=== PATIENT | female | born 2000 | race Caucasian/White ===

== ENCOUNTER 2022-11-23 13:38 | Outpatient (OUT) | payer OTHER, MEDICAID, SELFPAY ==
--- NOTE | 2022-11-23 13:05 | US_ITS ---
[address] [address] Patient Name: CHRIS BERMUDEZ MRN: [id number] date: 2000 Sex: F Assigned Patient Location: US Current Patient Location: US Accession/Order Number: [id number] Exam Date: 11/23/2022 13:10 Report Date: 11/23/2022 16:14 At the request of: PATIENCE ENRIQUEZ Procedure: US OB incomplete anatomy EXAMINATION: US OB incomplete anatomy HISTORY: FOLLOW UP SUBVISUALIZED ANATOMY COMPARISON: Ultrasound anatomy 10/24/2022 FINDINGS: Presentation: Cephalic Heart rate: 1 42 bpm Anatomy: Four-chamber heart, RVOT, LVOT visualized without appreciable abnormality. GA: 24 weeks 3 days LEXIE 03/12/2023 IMPRESSION: 1. Single live intrauterine . 2. Adequate visualization and no appreciable abnormality of the four-chamber heart and cardiac outflow tracts. Electronically authenticated by: JESE MENDEZ Date: 11/23/2022 16:14
== END 2022-11-23 13:39 ==
LOC: US 13:38
PROVIDERS: Visit Provider Obstetrics & Gynecology
DX: Z36.2 Encounter for other antenatal screening follow-up (principal); Z33.1 Pregnant state, incidental
CPT/HCPCS: 76815

== ENCOUNTER 2022-12-16 11:00 | Outpatient (OUT) | payer MEDICAID, SELFPAY ==
[2022-12-16 11:37] LABS: Glucose 1 Hour 103 mg/dL
== END 2022-12-16 11:01 | disposition home or self-care (01) ==
PROVIDERS: Visit Provider Physician Assistant
DX: Z13.1 Encounter for screening for diabetes mellitus (principal)
CPT/HCPCS: 36415; 82950

== ENCOUNTER 2023-02-12 18:05 | Outpatient (OUT) | payer MEDICAID, SELFPAY ==
--- NOTE | 2023-02-12 18:11 | US_ITS ---
[address] [address] Patient Name: CHRIS BERMUDEZ MRN: [id number] date: 2000 Sex: F Assigned Patient Location: Current Patient Location: Accession/Order Number: [id number] Exam Date: 02/12/2023 18:20 Report Date: 02/13/2023 14:59 At the request of: PATIENCE ENRIQUEZ Procedure: US OB growth PROCEDURE: US OB growth, 02/12/2023 6:20 PM EDT. INDICATIONS: size and date discrepancy, growth evaluation 1 para 0 COMPARISON: 11/23/2022 FINDINGS: EVALUATION Number of Fetuses : 1 Presentation: Cephalic Heart Rate: 136 bpm. Placenta: Anterior, no previa or hemorrhage demonstrated CHILANGO: 21.7 cm, maximum vertical pocket 7.9 cm GESTATIONAL AGE: Provided gestational age: 36 weeks 0 days Provided LEXIE: 03/12/2023 Sonographic gestational age: 37 weeks 0 days +/- 2 weeks 4 days Sonographic LEXIE: 03/05/2023 BIOMETRY: BPD: 9.4 cm, 38 weeks 0 days, 96 percentile. HC: 33.6 cm, 38 weeks 4 days, 80 percentile. AC: 34.2 cm, 38 weeks 1 day, 97 percentile. FL: 6.5 cm, 33 weeks 3 days, less than 3 percentile. Estimated weight 3111 g +/- 467 g. 80 percentile Growth ratios: CI: 79.7 FL/BPD: 69.3, normal range 71-87 HC/AC: 0.98 FL/AC: 18.9, normal range 20-24 FL/HC: 19.3, normal range 20.8-22.6 ANATOMY: Not evaluated MATERNAL FINDINGS: No maternal adnexal abnormality. US/US OB growth IMPRESSION: 1. Living intrauterine , cephalic presentation. 2. Composite sonographic age 37 weeks 0 days +/- 2 weeks 4 days. 3. Estimated weight 3111 g, 80 percentile 4. Amniotic fluid index 21.7 cm, maximum vertical pocket 7.9 cm. Electronically authenticated by: BUSTER MURPHY Date: 02/13/2023 14:59
== END 2023-02-12 18:06 | disposition home or self-care (01) ==
PROVIDERS: Visit Provider Obstetrics & Gynecology
DX: O26.843 Uterine size-date discrepancy, third trimester (principal); Z3A.36 36 weeks gestation of pregnancy
CPT/HCPCS: 76816

== ENCOUNTER 2023-02-14 20:45 | Outpatient (REF) | payer MEDICAID, SELFPAY | END 2023-02-14 20:46 | disposition home or self-care (01) | LOC: LAB 20:45 | PROVIDERS: Visit Provider Obstetrics & Gynecology | DX: Z34.93 Encounter for supervision of normal pregnancy, unspecified, third trimester (principal) | CPT/HCPCS: 87081 ==

== ENCOUNTER 2023-03-02 13:48 | Observation (INO) | payer MEDICAID, SELFPAY ==
[2023-03-02 14:03] VITALS: BP 133/80; PULSE 96
[2023-03-02 14:31] LABS: Bilirubin Urine NEGATIVE (NEGATIVE); Blood Urine NEGATIVE (NEGATIVE); Clarity Urine CLEAR (CLEAR); Color Urine LT. YELLOW (YELLOW); Glucose Urine UA NEGATIVE (NEGATIVE); Ketones Urine NEGATIVE (NEGATIVE); Leukocyte Esterase Urine TRACE (NEGATIVE); Nitrite Urine NEGATIVE (NEGATIVE); Protein Urine NEGATIVE (NEG/TRACE); Urobilinogen Urine 0.2 EU/dL (0.2-1.0)
[2023-03-02 14:32] LABS: Urine Microscopic Indicated YES
[2023-03-02 14:50] LABS: Bacteria Urine NONE SEEN #/HPF (NONE SEEN); Cast Seen? NONE SEEN #/LPF (NONE SEEN); Crystals Seen? None Seen #/HPF (None Seen); Mucus Urine SMALL (NONE SEEN); RBC Urine NONE SEEN #/HPF (0-2); Squamous Epithelial Cell Urine MODERATE #/LPF (NONE/RARE); Urine Culture Indicated NO; WBC Urine 0-2 #/HPF (NONE SEEN)
== END 2023-03-02 16:35 | disposition home or self-care (01) ==
LOC: FBC 13:51
PROVIDERS: Admitting Provider Obstetrics & Gynecology; Visit Provider Obstetrics & Gynecology
DX: O47.9 False labor, unspecified (principal); Z3A.00 Weeks of gestation of pregnancy not specified
CPT/HCPCS: 59025; 81001; G0378; G0379

== ENCOUNTER 2023-03-12 20:34 | Inpatient (IN) | payer MEDICAID, SELFPAY ==
[2023-03-12 20:45] VITALS: BP 137/77; PULSE 93
[2023-03-12 21:41] VITALS: RESP 18
[2023-03-12] MEDS: 0.9 % SODIUM CHLORIDE 1,000 ML 125 ML IV (22:25)
[2023-03-12 22:44] LABS: Hematocrit 34.9 % (36.0-48.0); Hemoglobin 12.1 g/dL (12.0-16.0); Mean Corpuscular HGB Conc 34.7 g/dL (29.9-35.2); Mean Corpuscular Hemoglobin 31.1 pg (26.7-34.0); Mean Corpuscular Volume 89.7 fL (81.0-99.0); Mean Platelet Volume 11.8 fL (9.5-13.5); Platelet Count 206 10^3/uL (150-450); Red Blood Count 3.89 10^6/uL (4.20-5.40); Red Cell Distribution Width 12.8 % (11.0-15.0); White Blood Count 11.6 10^3/uL (4.0-11.0)
[2023-03-12 22:50] LABS: Bilirubin Urine NEGATIVE (NEGATIVE); Blood Urine NEGATIVE (NEGATIVE); Clarity Urine CLEAR (CLEAR); Color Urine YELLOW (YELLOW); Glucose Urine UA NEGATIVE (NEGATIVE); Ketones Urine NEGATIVE (NEGATIVE); Leukocyte Esterase Urine NEGATIVE (NEGATIVE); Nitrite Urine NEGATIVE (NEGATIVE); Protein Urine NEGATIVE (NEG/TRACE); Specific Gravity Urine 1.015 (1.005-1.025); Urobilinogen Urine 0.2 EU/dL (0.2-1.0); pH Urine 7.5 (5.0-9.0)
[2023-03-12 22:51] LABS: Amphetamine Screen Urine NEGATIVE (NEGATIVE); Barbiturates Screen Urine NEGATIVE (NEGATIVE); Benzodiazepines Screen Urine NEGATIVE (NEGATIVE); Buprenorphine Screen Urine NEGATIVE (NEGATIVE); Cannabinoid Screen Urine NEGATIVE (NEGATIVE); Cocaine Screen Urine NEGATIVE (NEGATIVE); Methadone Screen Urine NEGATIVE (NEGATIVE); Methamphetamines Screen Urine NEGATIVE (NEGATIVE); Opiate Screen Urine NEGATIVE (NEGATIVE); Oxycodone Screen Urine NEGATIVE (NEGATIVE); Phencyclidine Screen Urine NEGATIVE (NEGATIVE); Tricyclic Antidepressant Urine NEGATIVE (NEGATIVE); Urine Microscopic Indicated NO
[2023-03-12 23:35] VITALS: BP 136/67; PULSE 86
[2023-03-13] VITALS (12 sets, daily range): BP systolic 108–136; BP diastolic 54–89; PULSE 85–109; RESP 16; TEMP 36.9–37.3
[2023-03-13] MEDS: ONDANSETRON PF 4 MG/2 ML VIAL IV (02:17)
[2023-03-13] MEDS: LIDOCAINE HCL 1% 200 MG/20 ML MDV INJ (04:18)
[2023-03-13] MEDS: KETOROLAC TROMETHAMINE 30 MG/ML VIAL IVP (04:35)
--- NOTE | 2023-03-13 04:44 | PM.OBPRCVD ---
Procedure Intrapartal events: None Induction method: none Delivery augmentation: rupture of membranes Delivery monitor: external FHT and external uterine Route of delivery: Episiotomy Description: right mediolateral Laceration description: perineal - 2nd degree Delivery repair: Vicryl Estimated blood loss (mL): 400 Anesthesia type: None Disposition: floor Delivery date: 03/13/23 Gender: male presentation: vertex Placental delivery description: Spontaneous cord description: 3 Vessels
[2023-03-13] MEDS: BENZOCAINE/MENTHOL 85 GRAM SPRAY BOTTLE 1 APPLIC TOPICAL (06:02)
[2023-03-13] MEDS: GLYCERIN/WITCH HAZEL PADS 1 PAD TOPICAL (06:02)
--- NOTE | 2023-03-13 07:44 | W.PC.ACHO ---
Registration Status: ADM IN Primary Language: [place] Citizen Preferred Language: [place] Citizen Active Medications Generic Name Dose Route Start Last Admin Trade Name Jose Martin PRN Reason Stop Dose Admin Acetaminophen 650 mg 03/13/23 04:45 Acetaminophen 325 Mg Tablet PO Q6H PRN Mild Pain Al Hydroxide/Mg Hydroxide 2,400 mg 03/13/23 04:45 Magnesium Hydroxide 2,400 Mg/10 Ml Oral.Susp PO Q6H PRN Dyspepsia Benzocaine/Menthol 1 applic 03/13/23 04:45 03/13/23 06:02 Benzocaine/Menthol 85 Gram [place] Bottle TOPICAL 1 applic Q2H PRN Administration Pain Carboprost Tromethamine 250 mcg 03/12/23 21:34 Carboprost Tromethamine 250 Mcg/Ml 1 Ml Vial IM 03/14/23 05:00 Q15M PRN Bleeding Diphtheria/Pertussis/Tetanus Vacc 0.5 ml 03/15/23 09:00 Adacel Diph,Pertuss(Acell),Tet Vac/Pf 0.5 Ml Adult Syringe IM 03/15/23 09:01 .ONCE ONE Docusate Sodium 100 mg 03/14/23 09:00 Docusate Sodium 100 Mg Capsule PO BID JEROD Sodium Chloride 1,000 mls @ 125 mls/hr 03/12/23 21:45 03/12/23 22:25 Sodium Chloride 0.9% 1,000 Ml IV 125 mls/hr .Q8H JEROD Administration Oxytocin 20 unit/ Sodium 1,002 mls @ 125 mls/hr 03/13/23 04:45 03/13/23 04:23 Chloride IV 03/13/23 12:44 125 mls/hr Q8H JEROD Administration Ibuprofen 600 mg 03/13/23 12:00 Ibuprofen 600 Mg Tablet PO Q6H PRN Moderate Pain Measles/Mumps/Rubella Vaccine Live 0.5 ml 03/15/23 09:00 Measles,Mumps,Rubella Vacc/Pf 0.5 Ml Vial SQ 03/15/23 09:01 .ONCE ONE Methylergonovine Maleate 0.2 mg 03/12/23 21:34 Methylergonovine Maleate 0.2 Mg/Ml Ampule IM 03/14/23 05:00 ONCE PRN Uterine Contractility/Contract Methylergonovine Maleate 0.2 mg 03/12/23 21:34 Methylergonovine Maleate 0.2 Mg Tablet PO 03/14/23 21:34 Q4H PRN Uterine Contractility/Contract Misoprostol 600 mcg 03/12/23 21:34 Misoprostol 100 Mcg Tablet PO 03/14/23 21:34 ONCE PRN Uterine Bleeding Misoprostol 800 mcg 03/12/23 21:34 Misoprostol 100 Mcg Tablet SL 03/14/23 21:34 ONCE PRN Uterine Bleeding Misoprostol 1,000 mcg 03/12/23 21:34 Misoprostol 100 Mcg Tablet [place] 03/14/23 21:34 ONCE PRN Uterine Bleeding Ondansetron HCl 4 mg 03/12/23 21:34 03/13/23 02:17 Ondansetron Pf 4 Mg/2 Ml Vial IV 4 mg Q6H PRN Administration Nausea And Vomiting Ondansetron HCl 4 mg 03/12/23 21:34 Ondansetron 4 Mg Rapdis Tablet SL Q6H PRN Nausea And Vomiting Oxytocin 10 unit 03/12/23 21:34 Oxytocin 10 Unit/Ml Vial IM 03/14/23 21:34 ONCE PRN Bleeding Senna 17.2 mg 03/13/23 20:00 Sennosides 8.6 Mg Tablet PO QHS PRN Constipation Simethicone 80 mg 03/13/23 04:45 Simethicone 80 Mg Tab.Chew PO QID PRN Abdominal Distention Temazepam 15 mg 03/13/23 04:45 Temazepam 15 Mg Capsule PO QHS PRN Sleep Witch Patricia/Glycerin 1 pad 03/13/23 04:45 03/13/23 06:02 Glycerin/Witch Patricia Pads TOPICAL 1 pad Q2H PRN Administration Pain Diet Category Date Time Status Regular Consistency Diet Diet 03/13/23 Breakfast Active IV Insertion/Site Date of IV Line Insertion [20g 03/12/23 left Hand] IV Insertion Time [20g left 22:25 Hand] Neurology Patient orientation (short person,place,time,situation list) Respiratory Oxygen Delivery Method Room Air Oxygen Delivery Method Room Air Cardiology Heart Sounds Strong,Regular Renal Bladder Pattern Continent
[2023-03-13] MEDS: ACETAMINOPHEN 325 MG TABLET 650 MG PO ×2 (10:32→16:19)
--- NOTE | 2023-03-13 11:53 | PC.NURSE ---
[id number] Patient up to shower, complaints of dizziness. Assisted back to bed by FOB. Encouraged to drink more fluids and rest.
--- NOTE | 2023-03-13 19:28 | W.PC.ACHO ---
Registration Status: ADM IN Primary Language: [place]ian Preferred Language: [place]isian Active Medications Generic Name Dose Route Start Last Admin Trade Name Jose Martin PRN Reason Stop Dose Admin Acetaminophen 650 mg 03/13/23 04:45 03/13/23 16:19 Acetaminophen 325 Mg Tablet PO 650 mg Q6H PRN Administration Mild Pain Al Hydroxide/Mg Hydroxide 2,400 mg 03/13/23 04:45 Magnesium Hydroxide 2,400 Mg/10 Ml Oral.Susp PO Q6H PRN Dyspepsia Benzocaine/Menthol 1 applic 03/13/23 04:45 03/13/23 06:02 Benzocaine/Menthol 85 Gram [place] Bottle TOPICAL 1 applic Q2H PRN Administration Pain Carboprost Tromethamine 250 mcg 03/12/23 21:34 Carboprost Tromethamine 250 Mcg/Ml 1 Ml Vial IM 03/14/23 05:00 Q15M PRN Bleeding Diphtheria/Pertussis/Tetanus Vacc 0.5 ml 03/15/23 09:00 Adacel Diph,Pertuss(Acell),Tet Vac/Pf 0.5 Ml Adult Syringe IM 03/15/23 09:01 .ONCE ONE Docusate Sodium 100 mg 03/14/23 09:00 Docusate Sodium 100 Mg Capsule PO BID JEROD Sodium Chloride 1,000 mls @ 125 mls/hr 03/12/23 21:45 03/12/23 22:25 Sodium Chloride 0.9% 1,000 Ml IV 125 mls/hr .Q8H JEROD Administration Ibuprofen 600 mg 03/13/23 12:00 Ibuprofen 600 Mg Tablet PO Q6H PRN Moderate Pain Measles/Mumps/Rubella Vaccine Live 0.5 ml 03/15/23 09:00 Measles,Mumps,Rubella Vacc/Pf 0.5 Ml Vial SQ 03/15/23 09:01 .ONCE ONE Methylergonovine Maleate 0.2 mg 03/12/23 21:34 Methylergonovine Maleate 0.2 Mg/Ml Ampule IM 03/14/23 05:00 ONCE PRN Uterine Contractility/Contract Methylergonovine Maleate 0.2 mg 03/12/23 21:34 Methylergonovine Maleate 0.2 Mg Tablet PO 03/14/23 05:00 Q4H PRN Uterine Contractility/Contract Misoprostol 600 mcg 03/12/23 21:34 Misoprostol 100 Mcg Tablet PO 03/14/23 05:00 ONCE PRN Uterine Bleeding Misoprostol 800 mcg 03/12/23 21:34 Misoprostol 100 Mcg Tablet SL 03/14/23 05:00 ONCE PRN Uterine Bleeding Misoprostol 1,000 mcg 03/12/23 21:34 Misoprostol 100 Mcg Tablet [place] 03/14/23 05:00 ONCE PRN Uterine Bleeding Ondansetron HCl 4 mg 03/12/23 21:34 03/13/23 02:17 Ondansetron Pf 4 Mg/2 Ml Vial IV 4 mg Q6H PRN Administration Nausea And Vomiting Ondansetron HCl 4 mg 03/12/23 21:34 Ondansetron 4 Mg Rapdis Tablet SL Q6H PRN Nausea And Vomiting Senna 17.2 mg 03/13/23 20:00 Sennosides 8.6 Mg Tablet PO QHS PRN Constipation Simethicone 80 mg 03/13/23 04:45 Simethicone 80 Mg Tab.Chew PO QID PRN Abdominal Distention Temazepam 15 mg 03/13/23 04:45 Temazepam 15 Mg Capsule PO QHS PRN Sleep Witch Patricia/Glycerin 1 pad 03/13/23 04:45 03/13/23 06:02 Glycerin/Witch Patricia Pads TOPICAL 1 pad Q2H PRN Administration Pain Diet Category Date Time Status Regular Consistency Diet Diet 03/13/23 Breakfast Active IV Insertion/Site Date of IV Line Insertion [20g 03/12/23 left Hand] IV Insertion Time [20g left 22:25 Hand] Neurology Patient orientation (short person,place,time,situation list) Respiratory Oxygen Delivery Method Room Air Oxygen Delivery Method Room Air Cardiology Heart Sounds Strong,Regular Renal Bladder Pattern Continent Bladder Pattern Continent
[2023-03-13] MEDS: IBUPROFEN 600 MG TABLET PO (20:23)
[2023-03-13] MEDS: SENNOSIDES 8.6 MG TABLET 17.2 MG PO (20:33)
[2023-03-14 00:45] VITALS: TEMP 36.7
[2023-03-14 00:46] VITALS: BP 130/70; PULSE 101
[2023-03-14] MEDS: IBUPROFEN 600 MG TABLET PO ×3 (04:12→16:01)
--- NOTE | 2023-03-14 07:23 | W.PC.ACHO ---
Registration Status: ADM IN Primary Language: [place] Preferred Language: [place] Active Medications Generic Name Dose Route Start Last Admin Trade Name Freq PRN Reason Stop Dose Admin Acetaminophen 650 mg 03/13/23 04:45 03/13/23 16:19 Acetaminophen 325 Mg Tablet PO 650 mg Q6H PRN Administration Mild Pain Al Hydroxide/Mg Hydroxide 2,400 mg 03/13/23 04:45 Magnesium Hydroxide 2,400 Mg/10 Ml Oral.Susp PO Q6H PRN Dyspepsia Benzocaine/Menthol 1 applic 03/13/23 04:45 03/13/23 06:02 Benzocaine/Menthol 85 Gram [place] Bottle TOPICAL 1 applic Q2H PRN Administration Pain Diphtheria/Pertussis/Tetanus Vacc 0.5 ml 03/15/23 09:00 Adacel Diph,Pertuss(Acell),Tet Vac/Pf 0.5 Ml Adult Syringe IM 03/15/23 09:01 .ONCE ONE Docusate Sodium 100 mg 03/14/23 09:00 Docusate Sodium 100 Mg Capsule PO BID JEROD Sodium Chloride 1,000 mls @ 125 mls/hr 03/12/23 21:45 03/12/23 22:25 Sodium Chloride 0.9% 1,000 Ml IV 125 mls/hr .Q8H JEROD Administration Ibuprofen 600 mg 03/13/23 12:00 03/14/23 04:12 Ibuprofen 600 Mg Tablet PO 600 mg Q6H PRN Administration Moderate Pain Measles/Mumps/Rubella Vaccine Live 0.5 ml 03/15/23 09:00 Measles,Mumps,Rubella Vacc/Pf 0.5 Ml Vial SQ 03/15/23 09:01 .ONCE ONE Ondansetron HCl 4 mg 03/12/23 21:34 03/13/23 02:17 Ondansetron Pf 4 Mg/2 Ml Vial IV 4 mg Q6H PRN Administration Nausea And Vomiting Ondansetron HCl 4 mg 03/12/23 21:34 Ondansetron 4 Mg Rapdis Tablet SL Q6H PRN Nausea And Vomiting Senna 17.2 mg 03/13/23 20:00 03/13/23 20:33 Sennosides 8.6 Mg Tablet PO 17.2 mg QHS PRN Administration Constipation Simethicone 80 mg 03/13/23 04:45 Simethicone 80 Mg Tab.Chew PO QID PRN Abdominal Distention Temazepam 15 mg 03/13/23 04:45 Temazepam 15 Mg Capsule PO QHS PRN Sleep Witch Patricia/Glycerin 1 pad 03/13/23 04:45 03/13/23 06:02 Glycerin/Witch Patricia Pads TOPICAL 1 pad Q2H PRN Administration Pain Diet Category Date Time Status Regular Consistency Diet Diet 03/13/23 Breakfast Active Respiratory Oxygen Delivery Method Room Air Cardiology Heart Sounds Strong,Regular Renal Bladder Pattern Continent Bladder Pattern Continent
[2023-03-14 09:40] VITALS: RESP 16
[2023-03-14 09:44] VITALS: BP 133/71; PULSE 117; RESP 18; TEMP 36.6
[2023-03-14] MEDS: DOCUSATE SODIUM 100 MG CAPSULE PO (09:46)
--- NOTE | 2023-03-14 14:19 | PM.OBPN ---
OB - PN: Subj Subjective Patient comments: no complaints and pain well controlled Exam Constitutional Vital Signs, click to edit/add: Last Vital Signs Temp 97.9 F 03/14/23 09:44 Pulse 117 H 03/14/23 09:44 Resp 18 03/14/23 09:44 BP 133/71 03/14/23 09:44 O2 Del Method Room Air 03/14/23 00:45 Documenting provider has reviewed patient's vital signs: yes Common normals: no apparent distress Respiratory Common normals: normal respiratory effort and clear to auscultation bilaterally Cardio Common normals: regular rate and regular rhythm GI Common normals: Normal to inspection, nondistended, normoactive bowel sounds present Extremity Common normals: no clubbing, cyanosis or edema and no calf tenderness OB - PN: A/P Plan - Vaginal Delivery day: 1 Plan: routine care, discharge home and follow up 6 weeks Time Spent with Patient Time: Total time spent is greater than 50% in coordination of care (as documented) at patient's floor/unit and/or counseling patient: Total time spent with greater than 50% in coordination of care (as documented) at patient's floor/unit and/or counseling patient: less than 15 minutes
[2023-03-14 16:00] VITALS: BP 131/83; PULSE 102
== END 2023-03-14 16:10 | disposition home or self-care (01) | DRG 560 ==
PROVIDERS: Admitting Provider Obstetrics & Gynecology; Visit Provider Obstetrics & Gynecology
DX: O99.284 Endocrine, nutritional and metabolic diseases complicating childbirth (principal); E23.6 Other disorders of pituitary gland; O99.354 Diseases of the nervous system complicating childbirth; G43.911 Migraine, unspecified, intractable, with status migrainosus; O99.892 Other specified diseases and conditions complicating childbirth; R00.0 Tachycardia, unspecified; O70.1 Second degree perineal laceration during delivery; Z82.61 Family history of arthritis; Z80.3 Family history of malignant neoplasm of breast; Z37.0 Single live birth; Z3A.00 Weeks of gestation of pregnancy not specified
CPT/HCPCS: 36415; 59025; 59050; 59410; 80307; 81003; 85027; 86850; 86900; 86901; 96374; 96375

== ENCOUNTER 2023-03-19 08:30 | Outpatient (OUT) | payer MEDICAID, SELFPAY ==
[2023-03-19 10:04] VITALS: BP 118/79; PULSE 98; RESP 16; TEMP 36.9; O2SAT 97
--- NOTE | 2023-03-19 10:11 | PC.NURSE ---
Arrive for follow up stating everything is going well States is able to sleep at night as baby gives 3 hour stretches at night otherwise feeds every 2.5 hours. Does both breasts, milk in and nipples are intact. Pinches initially with latch and gets better. Baby to breast, poor positioning noted as infant stretches over shoulder for latch. Shown to place baby belly to belly and to support breast. Infant latches himself deeply and audible swallows immediately. Nurses 06/01. Mom and baby working well together for feeds. No questions from parents at this time.
== END 2023-03-19 10:24 | disposition home or self-care (01) ==
LOC: FBCO 08:30
PROVIDERS: Visit Provider Obstetrics & Gynecology
DX: Z39.2 Encounter for routine postpartum follow-up (principal)

== ENCOUNTER 2023-07-03 20:38 | Emergency (ER) | payer MEDICAID, SELFPAY ==
[2023-07-03 20:46] VITALS: BP 145/86; PULSE 89; RESP 16; TEMP 37; O2SAT 97; BMI 31.8
--- NOTE | 2023-07-03 21:03 | ED.FEMALEGU1 ---
HPI - Female Genitourinary General Chief complaint: Vaginal Bleeding Stated complaint: Vaginal Pain Time Seen by Provider: 07/03/23 20:39 Source: patient Mode of arrival: walk-in Limitations: no limitations History of Present Illness HPI Narrative: Patient is a 22-year-old female who presents to the emergency department with her significant other for the evaluation of tissue protruding from her vagina that she noticed this afternoon. She states she was wiping when she felt something protruding, she noticed a small amount of spotting which has been typical for her intermittently since giving 16 weeks ago. She had a vaginal tear that was repaired with sutures. She did not have any removal of sutures. She has been healing well otherwise. She has no significant pain, no urinary symptoms or discharge. Related Data Previous Rx's Medication Instructions Recorded ibuprofen 800 mg tablet 800 mg PO Q8H PRN pain 14 days #40 03/14/23 tabs Allergies Allergy/AdvReac Type Severity Reaction Status Date / Time No Known Drug Allergies Allergy Verified 03/12/23 21:34 Review of Systems ROS Constitutional Denies: fever or chills Ears, nose, mouth, and throat Denies: throat pain Cardiovascular Denies: chest pain Respiratory Denies: shortness of breath Gastrointestinal Denies: nausea or vomiting Genitourinary Denies: painful urination or pelvic pain Musculoskeletal Denies: back pain Integumentary/Breast Denies: rash Hematologic/Lymphatic Denies: easy bruising Exam Narrative Exam Narrative: Gen.: Awake, alert, in no distress Head: Normocephalic, atraumatic ENT: Moist mucous membranes Respiratory: No respiratory distress : Vaginal exam performed with Elif Keys RN at bedside throughout the duration of the exam. Visual inspection and speculum exam show a small piece of granular appearing tissue at the posterior vagina. There is no active bleeding. Tissue is firmly attached to the posterior vagina and there is no active protrusion from the cervix or vaginal vault. Nontender. No visible masses, lesions or drainage. Extremities: Moves extremities equally Psych: Normal mood and affect Neuro: No focal neuro deficit Skin: Warm, dry, intact Constitutional Vital Signs, click to edit/add: Last Vital Signs Temp 98.6 F 07/03/23 20:46 Pulse 89 07/03/23 20:46 Resp 16 07/03/23 20:46 BP 145/86 H 07/03/23 20:46 Pulse Ox 97 07/03/23 20:46 O2 Del Method Room Air 07/03/23 21:02 Course Vital Signs Vital signs: Vital Signs Temperature 98.6 F 07/03/23 20:46 Pulse Rate 89 07/03/23 20:46 Respiratory Rate 16 07/03/23 20:46 Blood Pressure 145/86 H 07/03/23 20:46 Pulse Oximetry 97 07/03/23 20:46 Oxygen Delivery Method Room Air 07/03/23 20:46 Temperature 98.6 F 07/03/23 20:46 Pulse Rate 89 07/03/23 20:46 Respiratory Rate 16 07/03/23 20:46 Blood Pressure 145/86 H 07/03/23 20:46 Pulse Oximetry 97 07/03/23 20:46 Oxygen Delivery Method Room Air 07/03/23 21:02 MDM - Female Genitourinary MDM Narrative Medical decision making narrative: Vaginal exam with a small amount of tissue at the posterior vagina, appears to be granular tissue from healing sutures after vaginal tear repair. She is given education and reassurance. Follow-up with [employer] to have this removed if needed. Return to the ER if symptoms change or worsen. Medical Records Attestation: I reviewed the patient's medical records. Discharge Plan Discharge Chief Complaint: Vaginal Bleeding Clinical Impression: Vaginal granulation tissue Patient Disposition: Home, Self-Care Time of Disposition Decision: 21:02 Condition: Good Prescriptions / Home Meds: No Action ibuprofen 800 mg tablet 800 mg PO Q8H PRN (Reason: pain) 14 Days Qty: 40 0RF Instructions: Posterior Vaginal Repair (DC) Stand Alone Forms: Portal Instructions Referrals: Davon Connors DO [Physician] - 1 week Discharge Date/Time: 07/03/23 21:09
--- NOTE | 2023-07-03 21:04 | PC.NURSE ---
Pt. reports feeling like there is something hanging from her vagina. Pt. reports being 16 weeks & noted some spotting associated with it. Pt. denies any pain or fevers at this time.
== END 2023-07-03 21:09 | disposition home or self-care (01) ==
PROVIDERS: Emergency Provider Internal Medicine; PCP Internal Medicine
DX: A58 Granuloma inguinale (principal)
CPT/HCPCS: 99283

== ENCOUNTER 2023-07-11 | Outpatient (REF) | payer MEDICAID, SELFPAY ==
--- OUTSIDE RECORDS SUMMARY | 2023-07-16 11:56 | XMS_ITS | CCD ---
Author Name Unknown Address [address] [place] [address] Organization [facility] Care Team Providers Care Chairman & Co Founder Name Role Phone MINA ., DR MORIN Admitting Unavailable MINA ., DR MORIN Attending Unavailable REQUEST, NONE LISTED Primary Care Unavaila ble MINA ., DR MORIN Consulting Unavailable ZIEBER, DR JESE Franco Consulting Unavailable DHARMESH ., AMILCAR Admitting Unavailable DHARMESH ., AMILCAR Attending Unavailable FAWWAEl, GARCIA H Primary Care Unavailable VIRGIL ., RAJINDER Consulting Unavailable VIRGIL ., RAJINDER Admitting Unavailable VIRGIL ., RAJINDER Attending Unavailable FAWWAD, GARCIA H Primary Care Unavailable VIRGIL ., RAJINDER Consulting Unavailable VIRGIL ., RAJINDER Admitting Unavailable VIRGIL ., RAJINDER Attending Unavailable FAWWAEl, GARCIA H Primary Care Unavailable ZIEBSHAYY, DR JESE Franco Consulting Unavailable VIRGIL ., RAJINDER Consulting Unavailable REQUEST, NONE LISTED Consulting Unavaila Maggie Patel Unavailable MICKEY Bailey Attending Provider Annetta Suárez Unavailable PATIENCE CONNORS Attending Unavailable RAJINDER HERMAN Attending Unavailable NO FAMILY, PHYSICIAN Primary Care Provider Unava ilable Patience Connors Attending Provider Patience Connors Admitting Unavailable Patience Connors Attending Unavailable NO FAMILY, PHYSICIAN Primary Care Unavailable Annel Bailey Admitting Unavailable Annel Bailey Attending Unavailable NO FAMILY, PHYSICIAN Primary Care Unavailable Medications Current Medications Medication Drug Class(es) Dates Sig (Normalized) Sig (Original) cephalexin 500 mg oral capsule (4 sources) Cephalosporin Antibacterial Start: 07-07-2023 take 1 capsule by mouth every eight hours Cephalexin 500 MG 1 capsule Orally three times a day for 10 day(s) 20 Philip, 2024 Active Start: 11-16-2022 take 1 capsule by mo uth every eight hours Cephalexin 500 MG 1 capsule Orally every 8 hrs for 7 12 Mar, 2023 Active Completed/Discontinued Medications Medication Drug Class(es) Dates Sig (Normalized) Sig (Original) amoxicillin 875 mg oral tablet (2 sources) Penicillin-class Antibacterial Start: 05-23-2019 take 1 tablet by mouth every twelve hours Amoxicillin 875 MG 1 tablet Orally every 12 hrs for 7 days May, Not-Taking dextromethorphan hydrobromide 1.5 mg/ml / pyrilamine maleate 1.5 mg/ml oral solution (2 sources) Uncompetitive Y-ypiaed-I-aspartat e Receptor Antagonist, Sigma-1 Agonist Start: 05-23-2019 Draper DM 7.5-7.5 MG/5ML 10 ml Orally every 6-8 hours PRN for 8 days May, Not-Taking Etonogestrel (2 sources) Progestin Nexplanon Not-Taking ondansetron 4 mg oral tablet (2 sources) Serotonin-3 Receptor Antagonist take 1 tablet by mouth once daily Zofran ODT 4 MG 1 tablet on the tongue and allow to dissolve Orally Once a day Not-Taking Vitamin 27-0.8 MG (2 sources) take 1 tablet by mouth once daily Vitamin 27-0.8 MG 1 tablet Orally Once a day Not-Taking take 1 tablet by mouth once citlaly y Vitamin 27-0.8 MG 1 tablet Orally Once a day Active TB Test (6 sources) Start: 12-24-2019 TB Test Dec .01 mL Start: 12-17-2019 TB Test Dec .05 mL Problems Active Problems Problem Classification Problem Date Documented Date Episodic/Chronic Cardiac dysrhythmias (2 sources) Tachycardia; Translations: [Tachycardia, unspecified] Episodic Contraceptive and procreative management (10 sources) Surveillance of contraception; Translations: [Encounter for surveillance of other contraceptives] Resolved: 07-02-2020 Episodic Immunizations and screening for infectious disease (6 sources) Encounter for screening for infections with a predominantly sexual mode of transmission; Translations: [Encounter for screening for other viral diseases] Resolved: 07-01-2020 Episodic Menstrual disorders (3 sources) Irregular menstruation, unspecified; Translations: [IRREGULAR MENSTRUATION UNSPECIFIED] Onset: 08-07-2022 Chronic Nausea and vomiting (3 sources) Nausea with vomiting, unspecified; Translations: [NAUSEA WITH VOMITING UNSPECIFIED] Onset: 09-10-2022 Episodic Nonmalignant breast conditions (2 sources) Mastitis without abscess Episodic Other complications of (1 source) Mild hyperemesis gravidarum; Translations: [MILD HYPEREMESIS GRAVIDARUM] Onset: 09-12-2022 Episodic Other nutritional; endocrine; and metabolic disorders (1 source) Obesity, unspecified; Translations: [Obesity, unspecified] Chronic Other nutritional; endocrine; and metabolic disorders (2 sources) Metabolic syndrome X; Translations: [Metabolic syndrome] Chronic Other nutritional; endocrine; and metabolic disorders (1 source) Obesity; Translations: [Obesity, unspecified] Chronic Other nutritional; endocrine; and metabolic disorders (1 source) Overweight; Translations: [Overweight] Episodic Other nutritional; endocrine; and metabolic disorders (1 source) Overweight; Translations: [Overweight] Episodic Other and delivery including normal (1 source) Encounter for supervision of normal , unspecified, first trimester; Translations: [ENC SUP NORMAL PREG UNS FIRST TRI] Onset: 08-10-2022 Episodic Other screening for suspected conditions (not mental disorders or infectious disease) (8 sources) Encounter for other specified screening; Translations: [Encounter for screening for malignant neoplasm of cervix] Onset: 10-03-2022 Episodic Other skin disorders (1 source) Follicular disorder, unspecified; Translations: [Follicular disorder, unspecified] Episodic Other skin disorders (1 source) Folliculitis; Translations: [Follicular disorder, unspecified] Episodic Residual codes; unclassified (1 source) 14 weeks gestation of ; Translations: [14 WEEKS GESTATION OF ] Onset: 09-12-2022 Episodic Urinary tract infections (1 source) Urinary tract infection, site not specified Episodic Viral infection (2 sources) Disease caused by 2019-nCoV; Translations: [COVID-19] Past or Other Problems Problem Classification Problem Date Documented Da te Episodic/Chronic Abdominal pain (2 sources) Pelvic and perineal pain; Translations: [Pelvic and perineal pain] Resolved: 07-01-2020 Episodic Genitourinary symptoms and ill-defined conditions (2 sources) Dysuria; Translations: [Dysuria] Onset: 11-16-2022 Episodic Headache; including migraine (2 sources) Migraine without aura, not refractory ; Translations: [Migraine without aura, without mention of intractable migraine without mention of status migrainosus] Onset: 05-16-2018 Resolved: 07-01-2020 Chronic Other nutritional; endocrine; and metabolic disorders (1 source) Body mass index (BMI) 26.0-26.9, adult; Translations: [Body mass index (BMI) 26.0-26.9, adult] Resolved: 07-01-2020 Episodic Other nutritional; endocrine; and metabolic disorders (2 sources) Underweight; Translations: [Underweight] Resolved: 07-01-2020 Episodic Other nutritional; endocrine; and metabolic disorders (1 source) Body mass index 25-29 - overweight; Translations: [Body mass index (BMI) 26.0-26.9, adult] Resolved: 07-01-2020 Episodic Other skin disorders (2 sources) Hair and hair follicle diseases; Translations: [Other specified disease of hair and hair follicles] Onset: 01-23-2019 Resolved: 07-01-2020 Episodic Other skin disorders (2 sources) Acne; Translations: [Acne, unspecified] Onset: 05-16-2018 Resolved: 07-01-2020 Episodic Other upper respiratory disease (1 source) Seasonal allergic rhinitis; Translations: [Other seasonal allergic rhinitis] Onset: 05-16-2018 Resolved: 07-01-2020 Chronic Other upper respiratory disease (1 source) Other seasonal allergic rhinitis; Translations: [Other seasonal allergic rhinitis] Onset: 05-16-2018 Resolved: 07-01-2020 Chronic Unclassified (1 source) Routine general medical examination at health care facility; Translations: [Routine general medical examination at health care facility] Onset: 05-16-2018 Resolved: 07-01-2020 Results Test Name Value Interpretation Reference Range Facility [facility] 07-11-2023 L Specimen: [id number] Received: 07/12/23 Status: NYASIA Chavez Num: [id number] Spec Type: Surgical Subm Dr: Patience Connors Tissues: A Soft Tissue/Surgical Margin-Other than Tumor,Mass,Lip or Ryanne (TISSUE EPISIOT Procedures: HE, Gross/Micro L4 Age/ Patient Sex Location Account Attending Physician Danelle Baldwin 22/ LABELL [id number] Patience Connors SPEC NUM: [id number] RECD: 07/12/23 STATUS: NYASIA REQ NUM: [id number] KIMBERLYN: 07/11/23 DR: Patience Connors ENTERED: 07/12/23 [facility] DR: Bud,Margarito SPEC TYPE: Surgical DEPT: MELIDA LONGORIA ORDERED: HE, Gross/Micro L4 ORDERED: HE, Gross/Micro L4 Pathological Diagnosis Granulation tissue, episiotomy site, excision: Granulation tissue. Clinical Information Granulation tissue from episiotomy site Gross Description Received in formalin labeled with the patient's name, date of and granulation tissue episiotomy site is a 2.5 x 1.5 x 0.3 cm soft john-kendall wrinkled tissue fragment, which is sectioned and entirely submitted. Entirely submitted in one cassette labeled A1. CPT Codes 98869 -------- -------- Specimen: [id number] Received: 07/12/23 Status: NYASIA Req Num: [id number] Spec Type: Surgical Subm Dr: Patience Connors Tissues: A Soft Tissue/Surgical Margin-Other than Tumor,Mass,Lip or Ryanne (TISSUE EPISIOT Procedures: HE, Gross/Micro L4 -------- Patient: Danelle Baldwin [id number] (Continued) -------- Signed (signature on file) Cedric Stern MD 07/14/[address] [facility] Urinalysis - AUTOMATEDon Appearance (U) clear GVISP 1 Other Bilirubin Ql (U) Negative NI Other Color (U) yellow [place] Other Glucose Ql (U) Negative GVISP 1 Other Hemoglobin Ql (U) trace intact [place] Other Ketones Ql (U) Negative GVISP 1 Other Leukocyte esterase Test strip Ql (U) small [place] Other Nitrite Ql (U) Negative GVISP 1 Other pH (U) 6.5 [pH] [place] Other Protein Ql (U) Negative GVISP 1 Other Specific gravity (U) [Rel density] 1.010 [place] Other Urobilinogen (U) [Mass/Vol] 0.2 mg/dL [place] Other Urinalysis - AUTOMATED [place] Other Urine Cultureon 11-16-2022 Bacteria identified Cx Nom (U) <9,000 colonies/ml mixed bacterial skin contaminants 2 Days PERFORMED BY: [place] [id number] PATHOLOGIST [employer]KE [employer] FINISHER ASBESTOS EZEKIEL TERRELL M.D. Normal [facility] Comment on above: Performed By: #### C UU #### [address] US PREG ANATOMY SINGLEon US PREG ANATOMY SINGLE EXAMINATION: US PREG ANATOMY SINGLE, US PREG CERVICAL LENGTH HISTORY: anatomy study COMPARISON: No relevant comparison available. TECHNIQUE: Transabdominal sonographic examination was performed for obstetrical and evaluation. FINDINGS: Number: 1 Heart Rate: 130.0 bpm Amniotic Fluid Volume: Subjectively normal Placental Location: Anterior with lower margin 4.3 cm from os. Cervix Length: 3.7 cm, closed. ANATOMY: Normal Structures -cerebellum, choroid plexus, cisterna magna, lateral cerebral ventricles, orbits, midline falx, hard palate, four-chamber heart, RVOT, LVOT, stomach, kidneys, bladder, umbilical cord insertion into abdomen, three-vessel cord, cervical spine, thoracic spine, lumbar spine, sacral spine, right upper extremity, left upper extremity, right lower extremity, left lower extremity. SUBOPTIMALLY SEEN: Cardiac outflow tracts ABNORMALITIES: None BIOMETRY: BPD: 4.8 cm 20 weeks 3 days HC: 17.8 cm 20 weeks 2 days AC: 15.9 cm 21 weeks 0 days FL: 3.2 cm 19 weeks 6 days EFW:357.6 grams; 66% FL/AC: 20.1 FL/BPD: 66.9 HC/AC: 1.1 GESTATIONAL AGE: Age by EDC: 20 weeks 1 days LEXIE by EDC: 03/12/2023 Age by current US: 20 weeks 3 days LEXIE by current US: 03/10/2023 IMPRESSION: 1. Single live intrauterine with growth detailed above. 2. Suboptimal visualization of cardiac outflow tracts due to position. Electronically authenticated by: JESE MENDEZ Date: 2022-10-24 15:56 Normal [facility] Pap IG, rfx Aptima HPV, rfx 16/18,45on 10-10-2022 . . Normal [facility] Comment on above: Result Comment: Perf ormed at: WB Performed By: #### P APHR2A #### [facility] [address] [place] [address] Dr. Jason Cristina DIAGNOSIS: Comment Normal [facility] Comment on above: Result Comment: NEGA TIVE FOR INTRAEPITHELIAL LESION OR MALIGNANCY. FUNGAL ORGANISMS MORPHOLOGICALLY CONSISTENT WITH JENNIFER SPECIES ARE PRESENT. CELLULAR CHANGES ASSOCIATED WITH INFLAMMATION ARE PRESENT. Performed at: WB Performed By: #### P APHR2A #### [facility] [address] [address] [address] Jason Cristina HPV Aptima Negative Normal Negative [facility] Comment on above: Result Comment: This nucleic acid amplification test detects fourteen high-risk HPV types (16,18,31,33,35,39,45,51,52,56,58,59,66,68) without differentiation. Performed at: =G Performed By: #### P APHR2A #### [facility] [address] [address] [address] Jason Cristina HPV Genotype Reflex Comment Normal [facility] Comment on above: Result Comment: Crit eria not met, HPV Genotype not performed. Performed at: WB Performed By: #### P APHR2A #### [facility] [address] [place] [address] Dr. Jason Cristina Methodology: Comment Normal [facility] Comment on above: Result Comment: This liquid based ThinPrep(R) pap test was screened with the use of an image guided system. Performed at: WB Performed By: #### P APHR2A #### [facility] [address] [place] [address] Dr. Jason Cristina Note: Comment Normal [facility] Comment on above: Result Comment: The Pap smear is a screening test designed to aid in the detection of premalignant and malignant conditions of the uterine cervix. It is not a diagnostic procedure and should not be used as the sole means of detecting cervical cancer. Both false-positive and false-negative reports do occur. . Performed at: WB Performed By: #### P APHR2A #### [facility] [address] [place] [address] Dr. Jason Cristina Performed by: Comment Normal [facility] Comment on above: Result Comment: Jazmin Forbes, Vice Chair (ASCP) Performed at: WB Performed By: #### P APHR2A #### [facility] [address] [place] [address] Dr. Jason Cristina Specimen adequacy: Comment Normal [facility] Comment on above: Result Comment: Sati sfactory for evaluation. Endocervical and/or squamous metaplastic cells (endocervical component) are present. Performed at: WB Performed By: #### P APHR2A #### [facility] [address] [place] [address] Dr. Jason Cristina CBC W MANUAL DIFFon 09-11-19 23 ATYPICAL LYMPH # 0.10 103/ul Normal [facility] Comment on above: Performed By: #### C ELA #### [facility] [address] [place] [address] Dr. Jason Cristina ATYPICAL LYMPH % 1 % Normal [facility] Comment on above: Performed By: #### C ELA #### [facility] [address] [place] [address] Dr. Jason Cristina BAND # 0.0 103/ul Normal 0.0-0.3 [facility] Comment on above: Performed By: #### C ELA #### [facility] [address] [place] [address] Dr. Jason Cristina BAND % 0 % Normal 0-5 [facility] Comment on above: Performed By: #### C ELA #### [facility] [address] [place] [address] Dr. Jason Cristina BASOM # 0.00 103/ul Normal 0.00-0.10 [facility] Comment on above: Performed By: #### C ELA #### [facility] [address] [place] [address] Dr. Jason Cristina BASOM % 0.0 % Critically low 0.2-2.0 [facility] Comment on above: Performed By: #### C ELA #### [facility] [address] [place] [address] Dr. Jason Cristina BLAST # Normal [facility] Comment on above: Performed By: #### C BCMAN #### [facility] [address] [place] [address] Dr. Jason Cristina BLAST % Normal [facility] Comment on above: Performed By: #### C BCMAN #### [facility] [address] [place] [address] Dr. Jason Cristina CORRECTED WBC Normal 4.0-11.0 [facility] Comment on above: Performed By: #### C BCAJ #### [facility] [address] [place] [address] Dr. Jason Cristina EOS # 0.00 103/ul Normal 0.00-0.70 [facility] Comment on above: Performed By: #### C BCAJ #### [facility] [address] [place] [address] Dr. Jason Cristina EOS% 0.0 % Critically low 0.9-7.0 [facility] Comment on above: Performed By: #### C BCAJ #### [facility] [address] [place] [address] Dr. Jason Cristina HCT 37.4 % Normal 36.0-48.0 [facility] Comment on above: Performed By: #### C BCAJ #### [facility] [address] [place] [address] Dr. Jason Cristina HGB 13.3 g/dl Normal 12.0-16.0 [facility] Comment on above: Performed By: #### C BCAJ #### [facility] [address] [place] [address] Dr. Jason Cristina LYMPHM # 0.39 103/ul Critically low 1.20-3.80 [facility] Comment on above: Performed By: #### C BCMAN #### [facility] [address] [place] [address] Dr. Jason Cristina LYMPHM% 4.0 % Critically low 20.5-60.0 [facility] Comment on above: Performed By: #### C ELA #### [facility] [address] [place] [address] Dr. Jason Cristina MCH 31.4 pg Normal 26.7-34.0 [facility] Comment on above: Performed By: #### C ELA #### [facility] [address] [place] [address] Dr. Jason Cristina MCHC 35.6 g/dl Critically high 29.9-35.2 [facility] Comment on above: Performed By: #### C ELA #### [facility] [address] [place] [address] Dr. Jason Cristina MCV 88.4 fL Normal 81.0-99.0 [facility] Comment on above: Performed By: #### C ELA #### [facility] [address] [place] [address] Dr. Jason Cristina METAMYELOCYTE # Normal [facility] Comment on above: Performed By: #### C ELA #### [facility] [address] [place] [address] Dr. Jason Cristina METAMYELOCYTE % Normal [facility] Comment on above: Performed By: #### C ELA #### [facility] [address] [place] [address] Dr. Jason Cristina MONOM# 0.19 103/ul Critically low 0.30-0.80 [facility] Comment on above: Performed By: #### C ELA #### [facility] [address] [place] [address] Dr. Jason Cristina MONOM% 2.0 % Normal 1.7-12.0 [facility] Comment on above: Performed By: #### C ELA #### [facility] [address] [place] [address] Dr. Jason Cristina MPV 10.0 fL Normal 9.5-13.5 [facility] Comment on above: Performed By: #### C ELA #### [facility] [address] [place] [address] Dr. Jason Cristina MYELOCYTE # Normal [facility] Comment on above: Performed By: #### C ELA #### [facility] [address] [address] [address] Jason Cristina MYELOCYTE % Normal [facility] Comment on above: Performed By: #### C ELA #### [facility] [address] [address] [address] Jason Cristina NRBC Normal [facility] Comment on above: Performed By: #### C ELA #### [facility] [address] [place] [address] Dr. Jason Cristina PLT 202 103/ul Normal 150-450 [facility] Comment on above: Performed By: #### C ELA #### [facility] [address] [place] [address] Dr. Jason Cristina RBC 4.23 106/ul Normal 4.20-5.40 [facility] Comment on above: Performed By: #### C ELA #### [facility] [address] [place] [address] Dr. Jason Cristina RDW 12.5 % Normal 11.0-15.0 [facility] Comment on above: Performed By: #### C ELA #### [facility] [address] [place] [address] Dr. Jason Cristina SEG # 9.02 103/ul Critically high 1.40-6.50 [facility] Comment on above: Performed By: #### C ELA #### [facility] [address] [place] [address] Dr. Jason Cristina SEG % 93.0 % Critically high 43.0-75.0 [facility] Comment on above: Performed By: #### C ELA #### [facility] [address] [place] [address] Dr. Jason Cristina WBC 9.7 103/ul Normal 4.0-11.0 [facility] Comment on above: Performed By: #### C ELA #### [facility] [address] [place] [address] Dr. Jason Cristina ER URINE PROFILEon 3 Bilirubin Ql (U) Negative Normal NEGATIVE [facility] Comment on above: Performed By: #### P REGU, ERUR #### [facility] [address] [place] [address] Dr. Jason Cristina Clarity (U) CLEAR Normal CLEAR [facility] Comment on above: Performed By: #### P REGU, ERUR #### [facility] [address] [address] [address] Jason Cristina Color (U) YELLOW Normal YELLOW [facility] Comment on above: Performed By: #### P REGU, ERUR #### [facility] [address] [place] [address] Dr. Jason MILNER A micrscopic examination will be performed if indicated. Normal [facility] Comment on above: Performed By: #### P REGU, ERUR #### [facility] [address] [place] [address] Dr. Jason Cristina Glucose Ql (U) Negative Normal NEGATIVE [facility] Comment on above: Performed By: #### P REGU, ERUR #### [facility] [address] [place] [address] Dr. Jason Cristina Hemoglobin Ql (U) Negative Normal NEGATIVE [facility] Comment on above: Performed By: #### P REGU, ERUR #### [facility] [address] [place] [address] Dr. Jason Cristina Ketones Ql (U) 15 mg/dl Abnormal NEGATIVE [facility] Comment on above: Performed By: #### P REGU, ERUR #### [facility] [address] [place] [address] Dr. Jason Cristina LEUKOCYTES Negative Normal NEGATIVE [facility] Comment on above: Performed By: #### P REGU, ERUR #### [facility] [address] [place] [address] Dr. Jason Cristina Nitrite Ql (U) Negative Normal NEGATIVE [facility] Comment on above: Performed By: #### P REGU, ERUR #### [facility] [address] [place] [address] Dr. Jason Cristina pH (U) 6.0 [pH] Normal 5-9 [facility] Comment on above: Performed By: #### P REGU, ERUR #### [facility] [address] [place] [address] Dr. Jason Cristina SPEC GRAVITY >=1.030 Abnormal 1.005-<=1.025 [facility] Comment on above: Performed By: #### P REGU, ERUR #### [facility] [address] [place] [address] Dr. Jason Cristina UA PROTEIN TRACE Normal NEGATIVE/ TRACE [facility] Comment on above: Performed By: #### P REGU, ERUR #### [facility] [address] [place] [address] Dr. Jason Cristina UR MICRO IND NOT INDICATED Normal [facility] Comment on above: Performed By: #### P REGU, ERUR #### [facility] [address] [place] [address] Dr. Jason Cristina Urobilinogen Qn (U) 1.0 {Josephine'U}/dL Normal 0.2 - 1.0 [facility] Comment on above: Performed By: #### P REGU, ERUR #### [facility] [facility] [address] [place] [address] Dr. Jason Cristina URon 09-10-2022 , QUAL Positive Abnormal NEGATIVE [facility] Comment on above: Performed By: #### P REGU, ERUR #### [facility] [address] [place] [address] Dr. Jason Cristina PROF CHEM 8 (BAS METB)on Anion gap [Moles/Vol] 14.2 mmol/L Normal [facility] Comment on above: Performed By: #### B MP #### [facility] [address] [place] [address] Dr. Jason Cristina Calcium [Mass/Vol] 8.6 mg/dL Normal 8.5-10.1 [facility] Comment on above: Performed By: #### B MP #### [facility] [address] [place], [place] [id number] Dr. Jason Cristina Chloride [Moles/Vol] 100 mmol/L Normal 98-107 [facility] Comment on above: Performed By: #### B MP #### [facility] [address] [address] [address] Jason Cristina CO2 [Moles/Vol] 21.9 mmol/L Normal 21.0-32.0 [facility] Comment on above: Performed By: #### B MP #### [facility] [address] [place] [address] Dr. Jason Cristina Creatinine [Mass/Vol] 0.40 mg/dL Critically low 0.55-1.02 [facility] Comment on above: Performed By: #### B MP #### [facility] [address] [place] [address] Dr. Jason Cristina EGFR-AF ITALIAN >60 Normal >=60 [facility] Comment on above: Performed By: #### B MP #### [facility] [address] [place] [address] Dr. Jason Cristina EGFR-NON AF ITALIAN >60 Normal >=60 [facility] Comment on above: Performed By: #### B MP #### [facility] [address] [place] [address] Dr. Jason Cristina Glucose [Mass/Vol] 107 mg/dL Critically high 74-106 [facility] Comment on above: Performed By: #### B MP #### [facility] [address] [place] [address] Dr. Jason Cristina Potassium [Moles/Vol] 3.1 mmol/L Critically low 3.5-5.1 [facility] Comment on above: Performed By: #### B MP #### [facility] [address] [place] [address] Dr. Jason Cristina Sodium [Moles/Vol] 133 mmol/L Critically low 136-145 [facility] Comment on above: Performed By: #### B MP #### [facility] [address] [place] [address] Dr. Jason Cristina Urea nitrogen [Mass/Vol] 9.0 mg/dL Normal 7.0-18.0 [facility] Comment on above: Performed By: #### B MP #### [facility] [address] [address] [address] Jason Cristina Urea nitrogen/Creatinin e [Mass ratio] 22.5 mg/mg Normal [facility] Comment on above: Performed By: #### B MP #### [facility] [id number] Jason Cristina US PREG TVon 08-08-2022 US PREG TV EXAMINATION: US PREG TV HISTORY: Irregular periods COMPARISON: No relevant comparison available. FINDINGS: GESTATIONAL SAC: Present and normal appearing. YOLK SAC: Present and normal appearing. POLE: Present and normal appearing. CARDIAC: Present. UTERUS: Normal size and appearance. OVARIES: Right: Normal. Left: Normal. CERVIX: 3.3 cm in length and closed. CUL-DE-SAC: Normal. OTHER: None. AGE BY LMP: 9 weeks 6 days LEXIE BY LMP: 03/06/2023 AGE BY US CRL: 9 weeks 0 days LEXIE BY US CRL: 03/12/2023 IMPRESSION: 1. Single live intrauterine . Electronically authenticated by: JESE MENDEZ Date: 2022-08-08 16:36 Normal [facility] Vital Signs Date Time Vital Sign Value Performing Clinician Facility 07-07-2023 10:00-0500 Body height 162.56 cm Annetta Suárez Other [facility] Other 07-07-2023 10:00-0500 Body mass index (BMI) [Ratio] 32.34 kg/m2 Annetta Suárez Other [facility] Other 07-07-2023 10:00-0500 Body temperature 98 [degF] Annetta Suárez Other [facility] Other 07-07-2023 10:00-0500 Body weight 85.46 kg Annetta Suárez Other [facility] Other 07-07-2023 10:00-0500 Respiratory rate 18 /min Annetta Suárez Other [facility] Other 07-07-2023 10:00-0500 SaO2% (BldA) [Mass fraction] 98 % Annetta Suárez Other [facility] Other 03-29-2023 17:05-0400 Body height 162.56 cm Maggie Braden Other [facility] Other 03-29-2023 17:05-0400 Body mass index (BMI) [Ratio] 31.58 kg/m2 Maggie Braden Other [facility] Other 03-29-2023 17:05-0400 Body temperature 98.4 [degF] Maggie Braden Other [facility] Other 03-29-2023 17:05-0400 Body weight 83.46 kg Maggie Braden Other [facility] Other 03-29-2023 17:05-0400 Diastolic blood pressure 72 mm[Hg] Maggie Braden Other [facility] Other 03-29-2023 17:05-0400 Respiratory rate 18 /min Maggie Braden Other [facility] Other 03-29-2023 17:05-0400 SaO2% (BldA) [Mass fraction] 98 % Maggie Braden Other [facility] Other 03-29-2023 17:05-0400 Systolic blood pressure 128 mm[Hg] Maggie Braden Other [facility] Other 11-16-2022 11:20-0400 Body height 162.56 cm Maggie Braden Other [facility] Other 11-16-2022 11:20-0400 Body mass index (BMI) [Ratio] 32.09 kg/m2 Maggie Braden Other [facility] Other 11-16-2022 11:20-0400 Body temperature 98.8 [degF] Maggie Braden Other [facility] Other 11-16-2022 11:20-0400 Body weight 84.82 kg Maggie Braden Other [facility] Other 11-16-2022 11:20-0400 Respiratory rate 18 /min Maggie Braden Other [facility] Other 11-16-2022 11:20-0400 SaO2% (BldA) [Mass fraction] 99 % Maggie Braden Other [facility] Other Encounters Encounter Date Encounter Type Care Provider Facility Start: 07-12-2023 End: 07-12-2023 ambulatory PHYSICIAN NO [facility] Work Phone: Start: 07-12-2023 End: 07-12-2023 Departed Referred PHYSICIAN NO [facility] Start: 07-11-2023 End: 07-11-2023 ambulatory PATIENCE CONNORS Not Available Start: 07-07-2023 End: 07-07-2023 ambulatory Annetta Suárez Other [facility] Other Start: 07-07-2023 Office outpatient vi sit 15 minutes Annetta Suárez [facility] Start: 04-30-2023 End: 04-30-2023 ambulatory RAJINDER HERMAN Not Available Start: 03-29-2023 End: 03-29-2023 ambulatory Maggie Braden Other [facility] Other Start: 03-29-2023 Office outpatient vi sit 15 minutes Maggie Braden [facility] Start: 11-16-2022 Office outpatient vi sit 15 minutes Maggie Braden [facility] Start: 11-16-2022 End: 11-16-2022 ambulatory Annel Bailey [employer] [facility] [employer] Other Start: 11-16-2022 End: 11-16-2022 Departed Referred [employer] Annelkolton Bailey Work Phone: [facility] [place] Work Phone: Start: 10-24-2022 End: 10-25-2022 ambulatory RAJINDER HERMAN . Facility:[facility] Start: 10-03-2022 End: 10-03-2022 ambulatory RAJINDER HERMAN . Facility:[facility] Start: 09-10-2022 End: 09-11-2022 ambulatory AMILCAR BARROSO . Facility:[facility] Start: 08-07-2022 End: 08-08-[address] PATIENCE CONNORS . Facility:[facility] Start: 07-01-2020 End: 07-01-2020 Encounter for gynecological examination (general) (routine) without abnormal findings Maggie Braden Other [facility] Other Start: 07-01-2020 End: 07-01-2020 Gynecological examination normal Annetta Suárez Other [facility] Other Procedures Date Procedure Procedure Detail Performing Clinician Start: 05-16-2018 End: 07-01-2020 General examination of patient Annetta Suárez Other End: 02-20-2018 Contraception care education Maggie Braden Other School admission med ical examination Maggie Braden Other Plan of Treatment Date Care Activity Detail Author Start: 11-16-2022 Bacteria identified in Urine by Culture Urine Culture [facility] Immunizations Immunization Date Immunization Notes Care Provider Dianna scottty 12-01-2019 tetanus and diphther ia toxoids, adsorbed, preservative free, for adult use (5 Lf of tetanus toxoid and 2 Lf of diphtheria toxoid) Maggie Braden Other [facility] Other Payers Date Payer Category Payer Self-pay 2000 Unknown [id number] [id number] 1999 Unknown [id number] 2.16.84 [id number] 1999 Unknown [id number] 2.16.84 [id number] 1999 Unknown [id number] 2.16.84 [id number] 1999 Unknown [id number] 2.16.84 [id number] 1999 Unknown [id number] 1960 Medicaid [id number] 1960 Private Health Insurance [id number] Unknown [id number] 2.16.8 [id number] Unknown [id number] 2.16.8 [id number] Social History Date Type Detail Facility Unknown if ever smoked [facility] Other Sex Assigned At Sex Assigned At Bir th [facility] Other Start: 2000 Sex Assigned At Female F [facility] Evaluation note 07-07-2023 Note Date & Type Note Facility 07-07-2023 Evaluation note Encounter Date Diagnosis Assessment Notes Jun, Acute mastitis of left breast (ICD-10 - N61.0) Drink plenty fluids, get plenty of rest. Take cephalexin as prescribed until gone. Continue to breast-feed as usual. Take Tylenol as needed for pain or fever. Follow-up with your family physician if no improvement in 2 to 3 days. [facility] Other Evaluation note 03-29-2023 Note Date & Type Note Facility 03-29-2023 Evaluation note Encounter Date Diagnosis Assessment Notes Mar, Mastitis (ICD-10 - N61.0) Diagnosis with patient today in office. We will send in Rx of Keflex to use as directed. Reviewed allergies and recent antibiotic use with patient advised patient to take medication as scribed, finish entire course, take with food and plenty of water. Patient may use OTC Tylenol for additional symptom relief. Encouraged heat application or warm compresses for comfort, recommended wearing fitted bra. Encouraged patient to continue breast-feeding. Follow up with PCP or [employer] if symptoms do not improve. Immediate evaluation in ER for signs/symptoms as discussed. Patient verbalizes understanding and is agreeable with treatment plan Mar, Other Mastitis home care material was printed [facility] Other History general Narrative - Reported 03-13-2023 Note Date & Type Note Facility 03-13-2023 History general N arrative - Reported Type Medical History Acne Surgical History No know Surgical history Hospitalization History vaginal 3 [facility] Other Evaluation note 11-16-2022 Note Date & Type Note Facility 11-16-2022 Evaluation note Encounter Date Diagnosis Assessment Notes Nov, Dysuria (ICD-10 - R30.0) Nov, Acute lower UTI (ICD-10 - N39.0) UA with small leukocytes, trace blood. Will treat with Keflex. Finish entire course. Push fluids. Will send for urine culture and notify of results in 2 to 4 days. Follow-up with PCP for recheck in the next 3 to 5 days if symptoms are continuing or worsening. Patient verbalized understanding of treatment plan. [facility] Other Evaluation note Note Date & Type Note Facility Evaluation note No assessment information availa [facility] Work Phone: History general Narrative - Reported Note Date & Type Note Facility History general Narrative - Reported Type Medical History Acne [facility] Other History general Narrative - Reported Note Date & Type Note Facility History general Narrative - Reported Type Medical History Acne Surgical History No Surgical history information [facility] Other Summary Purpose Family History No Family History Records FoundNo Family History Records FoundNo Family History Records Found Advance Directives No Advanced Directives Records Found Advance Directive Response Recorded Date/ Time Advance Directives No November 22 6:52am Additional Source Comments INFORMATION SOURCE (unrecogn ized section and content) DATE CREATED AUTHOR 10/29/2022 [facility] DATE CREATED AUTHOR AUTHOR'S ORGANIZ ATION 07/12/2023 [facility] EPIC DATE CREATED AUTHOR AUTHOR'S ORGANIZ ATION 07/15/2023 [facility] REASON FOR VISIT (unrecogniz ed section and content) UTI, 23 WEEKS INTO possible mastitisPOSS MASTITIS Care Teams (unrecognized sec tion and content) Team Status: Inactive Member Role Status Dates nAnel Bailey APRN Attending Provider Active Team Status: Active Member Role Status Dates PHYSICIAN NO FAMILY Primary Care Provider Active Team Status: Inactive Member Role Status Dates PHYSICIAN NO FAMILY Primary Care Provider Active Start: July 12, 2023 End: July 12, 2023 Patience Connors Attending Provider Active Start: Noe weems 2023 End: July 12, 2023 Goals (unrecognized section and content) Goals may be documented in a n alternate section FOR RECORDS PERTAINING TO PATIENTS WHO ARE OR HAVE BEEN ENROLLED IN A CHEMICAL DEPENDENCY/SUBSTANCEABUSE PROGRAM, SOME INFORMATION MAY BE OMITTED. This clinical summary was aggregated from multiple sources. Caution should be exercised in using it in the provision of clinical care. This summary normalizes information from multiple sources, and as a consequence, information in this document may materially change the coding, format and clinical context of patient data. In addition, data may be omitted in some cases. CLINICAL DECISIONS SHOULD BE BASED ON THE PRIMARY CLINICAL RECORDS. [employer] provides no warranty or guarantee of the accuracy or completeness of information in this document.
== END 2023-07-11 00:01 ==
LOC: LAB
PROVIDERS: PCP Internal Medicine; Visit Provider Obstetrics & Gynecology
DX: L92.9 Granulomatous disorder of the skin and subcutaneous tissue, unspecified (principal)
CPT/HCPCS: 88305

== ENCOUNTER 2023-10-22 19:47 | Outpatient (REF) | payer MEDICAID, SELFPAY ==
--- OUTSIDE RECORDS SUMMARY | 2023-10-22 19:57 | XMS_ITS | CCD ---
Author Organization [facility] Care Team Providers Care Director Of Sports Medicine Name Role Phone MINA ., DR MORIN Admitting Unavailable MINA ., DR MORIN Attending Unavailable REQUEST, DR NONE LISTED Primary Care Unavaila ble MINA ., DR MORIN Consulting Unavailable ZIEBER, DR JESE Franco Consulting Unavailable DHARMESH ., AMILCAR Admitting Unavailable DHARMESH ., AMILCAR Attending Unavailable FAWWAD, GARCIA H Primary Care Unavailable VIRGIL ., RAJINDER Consulting Unavailable VIRGIL ., RAJINDER Admitting Unavailable VIRGIL ., RAJINDER Attending Unavailable FAWSDEl, GARCIA H Primary Care Unavailable VIRGIL ., RAJINDER Consulting Unavailable VIRGIL ., RAJINDER Admitting Unavailable VIRGIL ., RAJINDER Attending Unavailable FAWWAD, GARCIA H Primary Care Unavailable ZIEBER, DR JESE Franco Consulting Unavailable VRIGIL ., RAJINDER Consulting Unavailable REQUEST, DR NONE LISTED Consulting Unavaila Maggie Patel Unavailable MICKEY Bailey Attending Provider [phone] Annetta Suárez Unavailable NO FAMILY, PHYSICIAN Primary Care Provider Unava ilable Patience Connors Attending Provider Patience Connors Admitting Unavailable NO FAMILY, PHYSICIAN Primary Care Unavailable Patience Connors Attending Unavailable Annel Bailey Attending Unavailable Annel Bailey Admitting Unavailable NO FAMILY, PHYSICIAN Primary Care Unavailable PATIENCE CONNORS Attending Unavailable PATIENCE CONNORS Attending Unavailable RAJINDER HERMAN Attending Unavailable NO FAMILY, PHYSICIAN Primary Care Provider Unava ilable Patience Connors Attending Provider [phone] Medications Current Medications Medication Drug Class(es) Dates Sig (Normalized) Sig (Original) cephalexin 500 mg oral capsule (4 sources) Cephalosporin Antibacterial Start: 07-07-2023 take 1 capsule by mouth every eight hours Cephalexin 500 MG 1 capsule Orally three times a day for 10 day(s) Jun, Active Start: 11-16-2022 take 1 capsule by mo [facility] every eight hours Cephalexin 500 MG 1 capsule Orally every 8 hrs for 7 12 Mar, 2023 Active 24 hr venlafaxine 37.5 mg extended release oral capsule (1 source) Serotonin and Norepinephrine Reuptake Inhibitor Start: 08-30-2023 Venlafaxine Active MG PO August 30, 2023 12:00am Completed/Discontinued Medications Medication Drug Class(es) Dates Sig (Normalized) Sig (Original) amoxicillin 875 mg oral tablet (2 sources) Penicillin-class Antibacterial Start: 05-23-2019 take 1 tablet by mouth every twelve hours Amoxicillin 875 MG 1 tablet Orally every 12 hrs for 7 days May, Not-Taking dextromethorphan hydrobromide 1.5 mg/ml / pyrilamine maleate 1.5 mg/ml oral solution (2 sources) Uncompetitive L-puylmw-N-aspartat e Receptor Antagonist, Sigma-1 Agonist Start: 05-23-2019 [place] DM 7.5-7.5 MG/5ML 10 ml Orally every [...] Test Name Value Interpretation Reference Range Facility [facility] 07-11-2023 L Specimen: [id number] Received: 07/12/23 Status: NYASIA Chavez Num: [id number] Spec Type: Surgical Subm Dr: Patience Connors Tissues: A Soft Tissue/Surgical Margin-Other than Tumor,Mass,Lip or Ryanne (TISSUE EPISIOT Procedures: HE, Gross/Micro L4 Age/ Patient Sex Location Account Attending Physician Danelle Baldwin LABELL [id number] Patience Connors SPEC NUM: [id number] RECD: 07/12/23 STATUS: SOUT REQ NUM: [id number] KIMBERLYN: 07/11/23- SUBM DR: Patience Connors ENTERED: 07/12/[address] [facility] DR: Margarito Farrell SPEC TYPE: Surgical DEPT: MELIDA LONGORIA ORDERED: [...] in one cassette labeled A1. CPT Codes 88617 -------- -------- Specimen: [id number] Received: 07/12/23 Status: SOUT Req Num: [id number] Spec Type: Surgical Subm Dr: Patience Connors Tissues: A Soft Tissue/Surgical Margin-Other than Tumor,Mass,Lip or Ryanne (TISSUE EPISIOT Procedures: HE, Gross/Micro L4 -------- Patient: TinoDanelle herring [id number] (Continued) -------- Signed (signature on file) Cedric Stern MD 07/14/23 1144 [facility] Urinalysis - AUTOMATEDon Appearance (U) clear [employer] [employer] Other Bilirubin Ql (U) Negative [employer] Other Color (U) yellow [facility] Other Glucose Ql (U) Negative [employer] Other Hemoglobin Ql (U) trace intact [facility] Other Ketones Ql (U) Negative [employer] Other Leukocyte esterase Test strip Ql (U) small [facility] Other Nitrite Ql (U) Negative [employer] Other pH (U) 6.5 [pH] [facility] Other Protein Ql (U) Negative [employer] Other Specific gravity (U) [Rel density] 1.010 [facility] Other Urobilinogen (U) [Mass/Vol] 0.2 mg/dL [facility] Other Urinalysis - AUTOMATED [facility] Other Urine Cultureon 11-16-2022 Bacteria identified Cx Nom (U) <9,000 colonies/ml mixed bacterial skin contaminants 2 Days PERFORMED BY: [place] [address] PATHOLOGIST FOUR SLIDE MACHINE SETTER EZEKIEL TERRELL M.D. [facility] Comment on above: Performed By: #### C UU #### [address] US PREG ANATOMY SINGLEon US PREG [...] by: JESE MENDEZ Date: 2022-10-24 15:56 Normal [facility] Pap IG, rfx Aptima HPV, rfx 16/18,45on 10-10-2022 . . Normal [facility] Comment on above: Result Comment: Perf ormed at: WB Performed By: #### P APHR2A #### [facility] [address] [address] [address] Jason Cristina DIAGNOSIS: Comment Normal [facility] Comment on above: Result Comment: NEGA TIVE FOR INTRAEPITHELIAL LESION OR MALIGNANCY. FUNGAL ORGANISMS MORPHOLOGICALLY CONSISTENT WITH JENNIFER SPECIES ARE PRESENT. CELLULAR CHANGES ASSOCIATED WITH INFLAMMATION ARE PRESENT. Performed at: WB Performed By: #### P APHR2A #### [facility] [address] [address] [address] Jason Cristina HPV Aptima Negative Normal Negative [facility] Comment on above: Result Comment: This nucleic acid amplification test detects fourteen high-risk HPV types (16,18,31,33,35,39,45,51,52,56,58,59,66,68) without differentiation. Performed at: =G Performed By: #### P APHR2A #### [facility] [address] [address] [address] Jason Cristina HPV Genotype Reflex Comment Normal [facility] Comment on above: Result Comment: Crit eria not met, HPV Genotype not performed. Performed at: WB Performed By: #### P APHR2A #### [facility] [address] [address] [address] Jason Cristina Methodology: Comment Normal [facility] Comment on above: Result Comment: This liquid based ThinPrep(R) pap test was screened with the use of an image guided system. Performed at: WB Performed By: #### P APHR2A #### [facility] [address] [place] [address] Dr. Jason Cristina Note: Comment Normal [facility] Comment on above: Result Comment: The Pap smear is a screening test designed to aid in the detection of premalignant and malignant conditions of the uterine cervix. It is not a diagnostic procedure and should not be used as the sole means of detecting cervical cancer. Both false-positive and false-negative reports do occur. . Performed at: WB Performed By: #### P APHR2A #### [facility] [address] [place] [address] Dr. Jason Cristina Performed by: Comment Normal [facility] Comment on above: Result Comment: Jazmin Forbes, Inpatient Coder (ASCP) Performed at: WB Performed By: #### P APHR2A #### [facility] [address] [place] [address] Dr. Jason Cristina Specimen adequacy: Comment Normal [facility] Comment on above: Result Comment: Sati sfactory for evaluation. Endocervical and/or squamous metaplastic cells (endocervical component) are present. Performed at: WB Performed By: #### P APHR2A #### [facility] [address] [place] [address] Dr. Jason Cristina CBC W MANUAL DIFFon 09-11-19 23 ATYPICAL LYMPH # 0.10 103/ul Normal [facility] Comment on above: Performed By: #### C ELA #### [facility] [address] [place] [address] Dr. Jason Cristina ATYPICAL LYMPH % 1 % Normal [facility] Comment on above: Performed By: #### C ELA #### [facility] [address] [place] [address] Dr. Jason Cristina BAND # 0.0 103/ul Normal 0.0-0.3 [facility] Comment on above: Performed By: #### C ELA #### [facility] [address] [place] [address] Dr. Jason Cristina BAND % 0 % Normal 0-5 [facility] Comment on above: Performed By: #### C ELA #### [facility] [address] [place] [address] Dr. Jason Cristina BASOM # 0.00 103/ul Normal 0.00-0.10 [facility] Comment on above: Performed By: #### C ELA #### [facility] [address] [place] [address] Dr. Jason Cristina BASOM % 0.0 % Critically low 0.2-2.0 [facility] Comment on above: Performed By: #### C ELA #### [facility] [address] [place] [address] Dr. Jason Cristina BLAST # Normal [facility] Comment on above: Performed By: #### C ELA #### [facility] [address] [place] [address] Dr. Jason Cristina BLAST % Normal [facility] Comment on above: Performed By: #### C ELA #### [facility] [address] [place] [address] Dr. Jason Cristina CORRECTED WBC Normal 4.0-11.0 [facility] Comment on above: Performed By: #### C ELA #### [facility] [address] [place] [address] Dr. Jason Cristina EOS # 0.00 103/ul Normal 0.00-0.70 [facility] Comment on above: Performed By: #### C ELA #### [facility] [address] [place] [address] Dr. Jason Cristina EOS% 0.0 % Critically low 0.9-7.0 [facility] Comment on above: Performed By: #### C ELA #### [facility] [address] [place] [address] Dr. Jason Cristina HCT 37.4 % Normal 36.0-48.0 [facility] Comment on above: Performed By: #### C ELA #### [facility] [address] [place] [address] Dr. Jason Cristina HGB 13.3 g/dl Normal 12.0-16.0 [facility] Comment on above: Performed By: #### C ELA #### [facility] [address] [place] [address] Dr. Jason Cristina LYMPHM # 0.39 103/ul Critically low 1.20-3.80 [facility] Comment on above: Performed By: #### C ELA #### [facility] [address] [address] [address] Jason Cristina LYMPHM% 4.0 % Critically low 20.5-60.0 [facility] Comment on above: Performed By: #### C ELA #### [facility] [address] [address] [address] Jason Cristina MCH 31.4 pg Normal 26.7-34.0 [facility] Comment on above: Performed By: #### C ELA #### [facility] [address] [place] [address] Dr. Jason Cristina MCHC 35.6 g/dl Critically high 29.9-35.2 [facility] Comment on above: Performed By: #### C ELA #### [facility] [address] [place] [address] Dr. Jason Cristina MCV 88.4 fL Normal 81.0-99.0 [facility] Comment on above: Performed By: #### C ELA #### [facility] [address] [place] [address] Dr. Jason Cristina METAMYELOCYTE # Normal [facility] Comment on above: Performed By: #### C ELA #### [facility] [address] [place] [address] Dr. Jason Cristina METAMYELOCYTE % Normal [facility] Comment on above: Performed By: #### C ELA #### [facility] [address] [place] [address] Dr. Jason Cristina MONOM# 0.19 103/ul Critically low 0.30-0.80 [facility] Comment on above: Performed By: #### C ELA #### [facility] [address] [place] [address] Dr. Jason Cristina MONOM% 2.0 % Normal 1.7-12.0 [facility] Comment on above: Performed By: #### C ELA #### [facility] [address] [place] [address] Dr. Jason Cristina MPV 10.0 fL Normal 9.5-13.5 [facility] Comment on above: Performed By: #### C ELA #### [facility] [address] [place] [address] Dr. Jason Cristina MYELOCYTE # Normal [facility] Comment on above: Performed By: #### C ELA #### [facility] [address] [address] [address] Jason Cristina MYELOCYTE % Normal [facility] Comment on above: Performed By: #### C ELA #### [facility] [address] [place] [address] Dr. Jason Cristina NRBC Normal [facility] Comment on above: Performed By: #### C ELA #### [facility] [address] [place] [address] Dr. Jason Cristina PLT 202 103/ul Normal 150-450 [facility] Comment on above: Performed By: #### C ELA #### [facility] [address] [place] [address] Dr. Jason Cristina RBC 4.23 106/ul Normal 4.20-5.40 [facility] Comment on above: Performed By: #### C ELA #### [facility] [address] [place] [address] Dr. Jason Cristina RDW 12.5 % Normal 11.0-15.0 [facility] Comment on above: Performed By: #### C ELA #### [facility] [address] [address] [address] Jason Cristina SEG # 9.02 103/ul Critically high 1.40-6.50 [facility] Comment on above: Performed By: #### C ELA #### [facility] [address] [place] [address] Dr. Jason Cristina SEG % 93.0 % Critically high 43.0-75.0 [facility] Comment on above: Performed By: #### C ELA #### [facility] [address] [place] [address] Dr. Jason Cristina WBC 9.7 103/ul Normal 4.0-11.0 [facility] Comment on above: Performed By: #### C BCMAN #### [facility] [address] [address] [address] Jason LUCAS URINE PROFILEon 3 Bilirubin Ql (U) Negative Normal NEGATIVE [facility] Comment on above: Performed By: #### P REGU, ERUR #### [facility] [address] [address] [address] Jason Cristina Clarity (U) CLEAR Normal CLEAR [facility] Comment on above: Performed By: #### P REGU, ERUR #### [facility] [address] [place] [address] Dr. Jason Cristina Color (U) YELLOW Normal YELLOW [facility] Comment on above: Performed By: #### P REGU, ERUR #### [facility] [address] [place] [address] Dr. Jason MILNER A micrscopic examination will be performed if indicated. Normal [facility] Comment on above: Performed By: #### P REGU, ERUR #### [facility] [address] [place] [address] Dr. Jason Cristina Glucose Ql (U) Negative Normal NEGATIVE [facility] Comment on above: Performed By: #### P REGU, ERUR #### [facility] [address] [place] [address] Dr. Jason Cristina Hemoglobin Ql (U) Negative Normal NEGATIVE [facility] Comment on above: Performed By: #### P REGU, ERUR #### [facility] [address] [place] [address] Dr. Jason Cristina Ketones Ql (U) 15 mg/dl Abnormal NEGATIVE [facility] Comment on above: Performed By: #### P REGU, ERUR #### [facility] [address] [place] [address] Dr. Jason Cristina LEUKOCYTES Negative Normal NEGATIVE [facility] Comment on above: Performed By: #### P REGU, ERUR #### [facility] [address] [place] [address] Dr. Jason Cristina Nitrite Ql (U) Negative Normal NEGATIVE [facility] Comment on above: Performed By: #### P REGU, ERUR #### [facility] [address] [place] [address] Dr. Jason Cristina pH (U) 6.0 [pH] Normal 5-9 [facility] Comment on above: Performed By: #### P REGU, ERUR #### [facility] [address] [place] [address] Dr. Jason Cristina SPEC GRAVITY >=1.030 Abnormal 1.005-<=1.025 [facility] Comment on above: Performed By: #### P REGU, ERUR #### [facility] [address] [place] [address] Dr. Jason Cristina UA PROTEIN TRACE Normal NEGATIVE/ TRACE [facility] Comment on above: Performed By: #### P REGU, ERUR #### [facility] [address] [place] [address] Dr. Jason Cristina UR MICRO IND NOT INDICATED Normal [facility] Comment on above: Performed By: #### P REGU, ERUR #### [facility] [address] [place] [address] Dr. Jason Cristina Urobilinogen Qn (U) 1.0 {Josephine'U}/dL Normal 0.2 - 1.0 [facility] Comment on above: Performed By: #### P REGU, ERUR #### [facility] [address] [place] [address] Dr. Jason Cristina URon 09-10-2022 , QUAL Positive Abnormal NEGATIVE [facility] Comment on above: Performed By: #### P REGU, ERUR #### [facility] [address] [place] [address] Dr. Jason Cristina PROF CHEM 8 (BAS METB)on Anion gap [Moles/Vol] 14.2 mmol/L Normal [facility] Comment on above: Performed By: #### B MP #### [facility] [address] [address] [address] Jason Cristina Calcium [Mass/Vol] 8.6 mg/dL Normal 8.5-10.1 [facility] Comment on above: Performed By: #### B MP #### [facility] [address] [address] [address] Jason Cristina Chloride [Moles/Vol] 100 mmol/L Normal 98-107 [facility] Comment on above: Performed By: #### B MP #### [facility] [address] [address] [address] Jason Cristina CO2 [Moles/Vol] 21.9 mmol/L Normal 21.0-32.0 [facility] Comment on above: Performed By: #### B MP #### [facility] [address] [place] [address] Dr. Jason Cristina Creatinine [Mass/Vol] 0.40 mg/dL Critically low 0.55-1.02 [facility] Comment on above: Performed By: #### B MP #### [facility] [address] [place] [address] Dr. Jason Cristina EGFR-AF TONGAN >60 Normal >=60 [facility] Comment on above: Performed By: #### B MP #### [facility] [address] [place] [address] Dr. Jason Cristina EGFR-NON AF TONGAN >60 Normal >=60 [facility] Comment on above: Performed By: #### B MP #### [facility] [address] [address] [address] Jason Cristina Glucose [Mass/Vol] 107 mg/dL Critically high 74-106 [facility] Comment on above: Performed By: #### B MP #### [facility] [address] [address] [address] Jason Cristina Potassium [Moles/Vol] 3.1 mmol/L Critically low 3.5-5.1 [facility] Comment on above: Performed By: #### B MP #### [facility] [address] [address] [address] Jason Cristina Sodium [Moles/Vol] 133 mmol/L Critically low 136-145 [facility] e [facility] Comment on above: Performed By: #### B MP #### [facility] [address] [address] [address] Jason Cristina Urea nitrogen [Mass/Vol] 9.0 mg/dL Normal 7.0-18.0 [facility] Comment on above: Performed By: #### B MP #### [facility] [id number] Jason Cristina Urea nitrogen/Creatinin e [Mass ratio] 22.5 mg/mg Normal [facility] Comment on above: Performed By: #### B MP #### [facility] [address] [address] [address] Jason Cristina US PREG TVon 08-08-2022 [...] by: JESE MENDEZ Date: 2022-08-08 16:36 Normal [facility] Vital Signs Date Time Vital Sign Value Performing Clinician Facility 08-30-2023 09:41-0400 Body height 162.56 cm PHYSICIAN NO [facility] 08-30-2023 09:41-0400 Body mass index (BMI) [Ratio] 31.7 kg/m2 PHYSICIAN NO [facility] 08-30-2023 09:41-0400 Body temperature 98.3 [degF] PHYSICIAN [facility] 08-30-2023 09:41-0400 Body weight 83.97 kg PHYSICIAN NO [facility] 08-30-2023 09:41-0400 Heart rate 98 /min PHYSICIAN NO [facility] 08-30-2023 09:41-0400 Respiratory rate 18 /min PHYSICIAN NO [facility] 08-30-2023 09:41-0400 SaO2% (BldA) [Mass fraction] 98 % PHYSICIAN NO [facility] 07-07-2023 10:00-0500 Body height 162.56 cm Annetta Suárez Other [facility] 07-07-2023 10:00-0500 Body mass index (BMI) [Ratio] 32.34 kg/m2 Annetta Suárez Other [facility] Other 07-07-2023 10:00-0500 Body temperature 98 [degF] Annetta Suárez Other [facility] Other 07-07-2023 10:00-0500 Body weight 85.46 kg Annetta Suárez Other [facility] Other 07-07-2023 10:00-0500 Body weight 85.45 kg PHYSICIAN NO [facility] 07-07-2023 10:00-0500 Respiratory rate 18 /min Annetta Suárez Other [facility] Other 07-07-2023 10:00-0500 SaO2% (BldA) [Mass fraction] 98 % Annetta Suárez Other [facility] Other 03-29-2023 17:05-0400 Body height 162.56 cm Maggie Braden Other [facility] Other 03-29-2023 17:05-0400 Body mass index (BMI) [Ratio] 31.58 kg/m2 Maggie Braden Other [facility] Other 03-29-2023 17:05-0400 Body temperature 98.4 [degF] Maggie Braden Other [facility] Other 03-29-2023 17:05-0400 Body weight 83.46 kg Maggie Braden Other [facility] Other 03-29-2023 17:05-0400 Diastolic blood pressure 72 mm[Hg] Maggie Braden Other [facility] Other 03-29-2023 17:05-0400 Respiratory rate 18 /min Maggie Braden Other [facility] Other 03-29-2023 17:05-0400 SaO2% (BldA) [Mass fraction] 98 % Maggie Braden Other [facility] Other 03-29-2023 17:05-0400 Systolic blood pressure 128 mm[Hg] Maggie Braden Other [facility] Other 11-16-2022 11:20-0400 Body height 162.56 cm Maggie Braden Other [facility] Other 11-16-2022 11:20-0400 Body mass index (BMI) [Ratio] 32.09 kg/m2 Maggie Braden Other [facility] Other 11-16-2022 11:20-0400 Body temperature 98.8 [degF] Maggie Braden Other [facility] Other 11-16-2022 11:20-0400 Body weight 84.82 kg Maggie Braden Other [facility] Other 11-16-2022 11:20-0400 Respiratory rate 18 /min Maggie Braden Other [facility] Other 11-16-2022 11:20-0400 SaO2% (BldA) [Mass fraction] 99 % Maggie Braden Other [facility] Other Encounters Encounter Date Encounter Type Care Provider Facility Start: 08-30-2023 End: 08-30-2023 ambulatory PHYSICIAN NO [facility] Work Phone: Start: 08-30-2023 End: 08-30-2023 Patient encounter procedure PHYSICIAN NO [facility] Work Phone: Start: 08-08-2023 End: 08-08-2023 ambulatory PATIENCE MINA Not Available Start: 07-12-2023 End: 07-12-2023 ambulatory PHYSICIAN NO [facility] Work Phone: Start: 07-12-2023 End: 07-12-2023 Departed Referred PHYSICIAN NO [facility] Start: 07-11-2023 End: 07-11-2023 ambulatory PATIENCE MINA Not Available Start: 07-07-2023 End: 07-07-2023 ambulatory Annetta Suárez Other [facility] Other Start: 07-07-2023 Office outpatient vi sit 15 minutes Annetta Suárez [facility] Start: 07-07-2023 End: 07-07-2023 Patient encounter procedure PHYSICIAN NO [facility]- Start: 04-30-2023 End: 04-30-2023 ambulatory RAJINDER HERMAN Not Available Start: 03-29-2023 End: 03-29-2023 ambulatory Maggie Braden Other [facility] Other Start: 03-29-2023 Office outpatient vi sit 15 minutes Maggie Braden [facility] Start: 11-16-2022 Office outpatient vi sit 15 minutes Maggie Braden [facility] Start: 11-16-2022 End: 11-16-2022 ambulatory Annel Krupa Bailey [facility] Other Start: 11-16-2022 End: 11-16-2022 Departed Referred TOOL AND DIE INSPECTOR Annel Bailey Work Phone: [facility] [place] Work Phone: Start: 10-24-2022 End: 10-25-2022 ambulatory RAJINDER HERMAN . Facility:[facility]1 Start: 10-03-2022 End: 10-03-2022 ambulatory RAJINDER HERMAN . Facility:[facility] Start: 09-10-2022 End: 09-11-2022 ambulatory AMILCAR BARROSO . Facility:[facility] Start: 08-07-2022 End: 08-08-[address] PATIENCE CONNORS . Facility:[facility] Start: 07-01-2020 End: 07-01-2020 Encounter for gynecological examination (general) (routine) without abnormal findings Maggie Braden Other [facility] Other Start: 07-01-2020 End: 07-01-2020 Gynecological examination normal Annetta Suárez Other [facility] Other Procedures Date Procedure Procedure Detail Performing Clinician Start: 05-16-2018 End: 07-01-2020 General examination of patient Annetta Suárez Other End: 02-20-2018 Contraception care education Maggie Braden Other School admission med ical examination Maggie Braden Other Plan of Treatment Date Care Activity Detail Author Start: 11-16-2022 Bacteria identified in Urine by Culture Urine Culture [facility] Immunizations Immunization Date Immunization Notes Care Provider Dianna mckeon 12-01-2019 tetanus and diphther ia toxoids, adsorbed, preservative free, for adult use (5 Lf of tetanus toxoid and 2 Lf of diphtheria toxoid) Maggie Braden Other [facility] Payers Date Payer Category Payer Self-pay 1999 Unknown [id number] 2.16.84 [id number] 1999 Unknown [id number] 2.16.84 [id number] 1999 Unknown [id number] 2.16.84 [id number] 1999 Unknown [id number] 2.16.84 [id number] 1999 Unknown [id number] 2.16.84 [id number] 1999 Unknown [id number] 2.16.84 [id number] 1999 Unknown [id number] 1960 Medicaid [id number] 1960 Private Health Insurance [id number] Unknown [id number] 2.16.8 [id number] Unknown [id number] 2.16.8 [id number] Social History Date Type Detail Facility Unknown if ever smoked [facility] Other Sex Assigned At Sex Assigned At Bir th [facility] Other Start: 2000 Sex Assigned At Female F [facility] Start: 08-30-2023 Tobacco smoking status NHIS Never smoked tobacco (finding) [facility] Evaluation note 07-07-2023 Note Date & Type [...] no improvement in 2 to 3 days. [facility] Other Evaluation note 03-29-2023 Note Date & [...] continue breast-feeding. Follow up with PCP or HOTEL ASSISTANT GENERAL MANAGER if symptoms do not improve. Immediate evaluation in ER for signs/symptoms as discussed. Patient verbalizes understanding and is agreeable with treatment plan Mar, Other Mastitis home care material was printed [facility] Other History general Narrative - Reported 03-13-2023 Note Date & Type Note Facility 03-13-2023 History general N arrative - Reported Type Medical History Acne Surgical History No know Surgical history Hospitalization History vaginal 3 [facility] Other Evaluation note 11-16-2022 Note Date & [...] worsening. Patient verbalized understanding of treatment plan. [facility] Other Evaluation note Note Date & Type Note Facility Evaluation note No assessment information availa [facility] Work Phone: History general Narrative - Reported Note Date & Type Note Facility History general Narrative - Reported Type Medical History Acne [facility] Other History general Narrative - Reported Note Date & Type Note Facility History general Narrative - Reported Type Medical History Acne Surgical History No Surgical history information [facility] Other Summary Purpose Family History No Family History Records FoundNo Family History Records FoundNo Family History Records Found Advance Directives Advance Directive Response Recorded Date/ Time Advance Directives No November 22 6:52am Advance Directive Response Recorded Date/ Time Advance Directives No November 22 3 7:52am Chief Complaint and Reason for Visit Chief Complaint Poss Mastitis L92.9 cough, runny nose, congestion Additional Source Comments INFORMATION SOURCE (unrecogn ized section and content) DATE CREATED AUTHOR 10/29/2022 [facility] DATE CREATED AUTHOR AUTHOR'S ORGANIZ ATION 08/07/2023 [facility] DATE CREATED AUTHOR AUTHOR'S ORGANIZ ATION 08/16/2023 [facility] EPIC REASON FOR VISIT (unrecogniz ed section and content) UTI, 23 WEEKS INTO possible mastitisPOSS MASTITIS Care Teams (unrecognized sec tion and content) Team Status: Inactive Member Role Status Dates Annel Bailey APRN Attending Provider Active Team Status: Active Member Role Status Dates PHYSICIAN NO FAMILY Primary Care Provider Active Team Status: Inactive Member Role Status Dates PHYSICIAN NO FAMILY Primary Care Provider Active Start: July 12, 2023 End: July 12, 2023 Patience Connors Attending Provider Active Start: Noe weems 2023 End: July 12, 2023 Team Status: Inactive Member Role Status Dates EARL Falcon Attending Provider Active S tart: July 07, 2023 End: July 07, 2023 Team Status: Inactive Member Role Status Dates PHYSICIAN NO FAMILY Primary Care Provider Active Start: August 30, 2023 End: August 30, 2023 Maggie Braden APRN Attending Provider Active Start: August 30, 2023 End: August 30, 2023 Goals (unrecognized section and content) Goals [...] BE BASED ON THE PRIMARY CLINICAL RECORDS. [facility] [employer] [facility]. provides no warranty or guarantee of the accuracy or completeness of information in this document.
== END 2023-10-22 19:48 | disposition home or self-care (01) ==
LOC: LAB 19:47
PROVIDERS: PCP Internal Medicine; Visit Provider Obstetrics & Gynecology
DX: Z01.419 Encounter for gynecological examination (general) (routine) without abnormal findings (principal)
CPT/HCPCS: G0145

== ENCOUNTER 2024-10-27 14:07 | Outpatient (RCR) | payer OTHER, MEDICAID, SELFPAY ==
[2024-10-27 15:22] LABS: HCG Quantitative 54 mIU/mL
== END 2024-11-17 10:52 | disposition home or self-care (01) ==
LOC: LAB 14:07
PROVIDERS: Visit Provider Obstetrics & Gynecology
DX: O20.9 Hemorrhage in early pregnancy, unspecified (principal)
CPT/HCPCS: 36415; 84702

== ENCOUNTER 2024-10-27 15:55 | Emergency (ER) | payer OTHER, MEDICAID, SELFPAY ==
[2024-10-27 15:58] VITALS: BP 150/98; PULSE 106; TEMP 36.7; O2SAT 100
--- NOTE | 2024-10-27 16:13 | ED.GENADUL1 ---
HPI HPI - General Adult General Chief complaint: OB/Uterine Contractions Stated complaint: bleeding/ 6 weeks Time Seen by Provider: 10/27/24 16:00 Source: patient Mode of arrival: walk-in Limitations: no limitations History of Present Illness HPI narrative: Is a 23-year-old female who presents to the emergency department today for evaluation concerns for vaginal bleeding in the first trimester . She endorses her LMP was 09/15/2024 (). Today she began having some vaginal spotting that began increasing in her like a menstrual period she reports she has used 1 pad today. She does endorse some abdominal cramping. No back/flank pain. She does endorse vaginal intercourse last night otherwise. No dizziness/syncope, chest pain, shortness of breath. Patient mention she was with her ACID FILLER today and was scheduled for an ultrasound tomorrow however due to vaginal bleeding was advised to come to the ER Related Data Home Medications ?Medication ?Instructions ?Recorded ?Confirmed amoxicillin 500 mg capsule mg 10/27/24 Allergies Allergy/AdvReac Type Severity Reaction Status Date / Time No Known Drug Allergies Allergy Verified 10/27/24 16:02 Opioid HPI Opioid Management Most Recent Opioid Data: Last Pain Scale 3 Today, 16:18 Last ED Pain Assessment Today, 16:18 Ur Phencyclidine Scrn, (NEGATIVE) Negative 03/12/23, 21:30 Review of Systems ROS Status of ROS 10 or more systems reviewed and unremarkable except as noted in history and below Exam Narrative Exam Narrative: Constituational: Awake/ alert, no apparent distress, well hydrated HENMT: normocephalic, external ears normal, moist oral mucous membranes and oropharynx normal Eyes: EOMs intact bilaterally and conjunctivae normal Neck: ROM intact Chest: inspection of chest normal Respiratory: Normal respiratory effort, clear to auscultation bilaterally Cardio: regular rate and regular rhythm GI: soft to palpation and non-tender : normal external exam, + moderate bleeding in vaginal canal, unable to visualize cervix Back: nontender MSK: full ROM and normal capillary refill Skin: no rashes or petichea Neuro: no focal deficits Psych: mental status grossly normal Constitutional Vital Signs, click to edit/add: Last Vital Signs Temp 98.0 F 10/27/24 15:58 Pulse 106 H 10/27/24 15:58 Resp 16 10/27/24 15:58 BP 150/98 H 10/27/24 15:58 Pulse Ox 100 10/27/24 15:58 O2 Del Method Room Air 10/27/24 15:58 Course Vital Signs Vital signs: Vital Signs Temperature 98.0 F 10/27/24 15:58 Pulse Rate 106 H 10/27/24 15:58 Respiratory Rate 16 10/27/24 15:58 Blood Pressure 150/98 H 10/27/24 15:58 Pulse Oximetry 100 10/27/24 15:58 Oxygen Delivery Method Room Air 10/27/24 15:58 Temperature 98.0 F 10/27/24 15:58 Pulse Rate 106 H 10/27/24 15:58 Respiratory Rate 16 10/27/24 15:58 Blood Pressure 150/98 H 10/27/24 15:58 Pulse Oximetry 100 10/27/24 15:58 Oxygen Delivery Method Room Air 10/27/24 15:58 Medical Decision Making MDM Narrative Medical decision making narrative: The patient is a nontoxic and well-appearing 23-year-old female who presented to the emergency department today for evaluation concerns for vaginal bleeding affecting early . Vital signs overall stable. No acute abdominal findings on exam. Reviewed labs that showed an hCG quant of 54 prior to evaluation today. Labs otherwise stable and showed no significant leukocytosis, anemia, thrombocytopenia. Electrolytes including renal and hepatic function stable. Rh factor is positive. RhoGAM not indicated. Ultrasound does not show IUP initially does not show any critical of ectopic per US tech. Discussed patient's condition with Dr. Connors (OBGYN)[id number] -> recommends d/c and outpatient follow-up and Dr. Connors call patient tonight to discuss recommendations for follow-up. Discussed the above findings with the patient including recommendations for supportive care of vaginal bleeding in the setting of positive test. Recommendations for vaginal rest. Rated follow-up with her ACID FILLER for reevaluation. Symptoms of any worsening condition and when to consider reevaluation. Patient verbalized an understanding of this and is agreeable with the plan to be discharged home. Lab Data Lab results reviewed: Yes I reviewed the patient's lab results Labs: Lab Results 10/27/24 10/27/24 Range/Units 16:28 16:32 WBC 9.3 (4.0-11.0) 10^3/uL RBC 4.35 (4.20-5.40) 10^6/uL Hgb 13.4 (12.0-16.0) g/dL Hct 38.8 (36.0-48.0) % MCV 89.2 (81.0-99.0) fL MCH 30.8 (26.7-34.0) pg MCHC 34.5 (29.9-35.2) g/dL RDW 12.7 (11.0-15.0) % Plt Count 305 (150-450) 10^3/uL MPV 9.7 (9.5-13.5) fL Neut % (Auto) 50.4 (43.0-75.0) % Lymph % (Auto) 39.4 (20.5-60.0) % Pacific % (Auto) 7.6 (1.7-12.0) % Eos % (Auto) 1.9 (0.9-7.0) % Baso % (Auto) 0.5 (0.2-2.0) % Neut # (Auto) 4.7 (1.4-6.5) 10^3/uL Lymph # (Auto) 3.7 (1.2-3.8) 10^3/uL Pacific # (Auto) 0.7 (0.3-0.8) 10^3/uL Eos # (Auto) 0.2 (0.0-0.7) 10^3/uL Baso # (Auto) 0.1 (0.0-0.1) 10^3/uL Abs Immat Gran (auto) 0.02 (0.00-0.03) 10^3/uL Imm/Tot Granulo (auto) 0.2 (0.0-0.5) % Sodium 137 (136-145) mmol/L Potassium 3.2 L (3.5-5.1) mmol/L Chloride 102 (98-107) mmol/L Carbon Dioxide 26.4 (21.0-32.0) mmol/L Anion Gap 11.8 BUN 10.0 (7.0-18.0) mg/dL Creatinine 0.74 (0.55-1.02) mg/dL Est GFR ( Amer) >60 (>=60 mL/min/1.73m^2) Est GFR (Non-Af Amer) >60 (>=60 mL/min/1.73m^2) BUN/Creatinine Ratio 13.5 Glucose 105 (74-106) mg/dL Calcium 9.2 (8.5-10.1) mg/dL Total Bilirubin 0.3 (0.2-1.0) mg/dL AST 11 L (15-37) U/L ALT 22 (14-59) U/L Alkaline Phosphatase 68 (46-116) U/L Total Protein 7.4 (6.4-8.2) g/dL Albumin 3.6 (3.4-5.0) g/dL Globulin 3.8 g/dL Albumin/Globulin Ratio 0.9 Urine Color Lt. yellow (YELLOW) Urine Clarity Sl cloudy (CLEAR) Urine pH 6.0 (5.0-9.0) Ur Specific [place] 1.020 (1.005-1.025) Urine Protein Negative (NEG/TRACE) mg/dL Urine Glucose (UA) Negative (NEGATIVE) mg/dL Urine Ketones Negative (NEGATIVE) mg/dL Urine Occult Blood Large A (NEGATIVE) Urine Nitrite Negative (NEGATIVE) Urine Bilirubin Negative (NEGATIVE) Urine Urobilinogen 0.2 (0.2-1.0) EU/dL Ur Leukocyte Esterase Negative (NEGATIVE) Urine RBC 20-50 A (0-2) #/HPF Urine WBC 0-2 A (NONE SEEN) #/HPF Ur Squamous Epith Cells Rare (NONE/RARE) #/LPF Urine Crystals None seen (None Seen) #/HPF Urine Bacteria Trace A (NONE SEEN) #/HPF Urine Casts None seen (NONE SEEN) #/LPF Urine Mucus Small A (NONE SEEN) Ur Culture Indicated? No Discharge Plan Discharge Chief Complaint: OB/Uterine Contractions Clinical Impression: Vaginal bleeding affecting early Prescriptions / Home Meds: No Action amoxicillin 500 mg capsule Print Language: Sudanese Instructions: Threatened Miscarriage (ED) Additional Instructions: Vaginal rest as discussed. Your ACID FILLER will call you to discuss recommendations for The ER. May return to the ER with any concerns at any time. Referrals: Physician,Non-Staff, MD [Primary Care Provider] - 1 week
--- NOTE | 2024-10-27 16:20 | PC.NURSE ---
Pt presents to ER for vaginal bleeding and cramping that began this morning pt states her last period was September 15. This is her second , her first was healthy and full term Pt states she woke up this morning and had bleeding with wiping but the bleeding has worsened throughout the day and is now accompanied by cramping Pt states she called Dr. Kimbrough office and had bloodwork done which showed a hcg level of 54 Pt was directed to come to the ER for ultrasound This nurse placed pt in a gown and accompanied PATRICE Solano for a pelvic exam Pt tolerated well and is aware of ultrasound order Denied further needs or questions at this time
[2024-10-27 16:39] LABS: Basophils Absolute Auto 0.1 10^3/uL (0.0-0.1); Basophils Percent Auto 0.5 % (0.2-2.0); Eosinophils Absolute Auto 0.2 10^3/uL (0.0-0.7); Eosinophils Percent Auto 1.9 % (0.9-7.0); Hematocrit 38.8 % (36.0-48.0); Hemoglobin 13.4 g/dL (12.0-16.0); Immature Granulocytes Abs Auto 0.02 10^3/uL (0.00-0.03); Immature Granulocytes Pct Auto 0.2 % (0.0-0.5); Lymphocytes Absolute Auto 3.7 10^3/uL (1.2-3.8); Lymphocytes Percent Auto 39.4 % (20.5-60.0); Mean Corpuscular HGB Conc 34.5 g/dL (29.9-35.2); Mean Corpuscular Hemoglobin 30.8 pg (26.7-34.0); Mean Corpuscular Volume 89.2 fL (81.0-99.0); Mean Platelet Volume 9.7 fL (9.5-13.5); Monocytes Absolute Auto 0.7 10^3/uL (0.3-0.8); Monocytes Percent Auto 7.6 % (1.7-12.0); Neutrophils Absolute Auto 4.7 10^3/uL (1.4-6.5); Neutrophils Percent Auto 50.4 % (43.0-75.0); Platelet Count 305 10^3/uL (150-450); Red Blood Count 4.35 10^6/uL (4.20-5.40); Red Cell Distribution Width 12.7 % (11.0-15.0); White Blood Count 9.3 10^3/uL (4.0-11.0)
[2024-10-27 16:41] LABS: Bilirubin Urine NEGATIVE (NEGATIVE); Blood Urine LARGE (NEGATIVE); Clarity Urine SL CLOUDY (CLEAR); Color Urine LT. YELLOW (YELLOW); Glucose Urine UA NEGATIVE (NEGATIVE); Ketones Urine NEGATIVE (NEGATIVE); Leukocyte Esterase Urine NEGATIVE (NEGATIVE); Nitrite Urine NEGATIVE (NEGATIVE); Protein Urine NEGATIVE (NEG/TRACE); Urobilinogen Urine 0.2 EU/dL (0.2-1.0)
[2024-10-27 16:47] LABS: Urine Microscopic Indicated YES
[2024-10-27 16:50] LABS: Mucus Urine SMALL (NONE SEEN); RBC Urine 20-50 #/HPF (0-2); WBC Urine 0-2 #/HPF (NONE SEEN)
[2024-10-27 16:51] LABS: Cast Seen? NONE SEEN #/LPF (NONE SEEN); Crystals Seen? None Seen #/HPF (None Seen); Squamous Epithelial Cell Urine RARE #/LPF (NONE/RARE)
[2024-10-27 16:52] LABS: Bacteria Urine TRACE #/HPF (NONE SEEN)
[2024-10-27 16:53] LABS: Urine Culture Indicated NO
[2024-10-27 16:56] LABS: Alanine Aminotransferase 22 U/L (14-59); Albumin Globulin Ratio 0.9; Albumin Level 3.6 g/dL (3.4-5.0); Alkaline Phosphatase 68 U/L (46-116); Anion Gap 11.8; Aspartate Amino Transferase 11 U/L (15-37); BUN Creatinine Ratio 13.5; Bilirubin Total 0.3 mg/dL (0.2-1.0); Calcium 9.2 mg/dL (8.5-10.1); Carbon Dioxide 26.4 mmol/L (21.0-32.0); Chloride 102 mmol/L (98-107); Estimated GFR (African America >60 (>=60 mL/min/1.73m^2); Estimated GFR (Non-African Ame >60 (>=60 mL/min/1.73m^2); Globulin 3.8 g/dL; Glucose 105 mg/dL (74-106); Potassium 3.2 mmol/L (3.5-5.1); Sodium 137 mmol/L (136-145); Total Protein 7.4 g/dL (6.4-8.2)
[2024-10-27 17:49] VITALS: BP 134/82; PULSE 93; O2SAT 99
== END 2024-10-27 17:52 | disposition home or self-care (01) ==
PROVIDERS: Nurse Practitioner; Emergency Provider Emergency Medicine
DX: O20.9 Hemorrhage in early pregnancy, unspecified (principal); Z3A.01 Less than 8 weeks gestation of pregnancy
CPT/HCPCS: 36415; 76817; 80053; 81001; 84702; 85025; 86431; 99285

== ENCOUNTER 2024-11-05 16:24 | Outpatient (OUT) | payer OTHER, SELFPAY ==
--- OUTSIDE RECORDS SUMMARY | 2024-11-05 16:27 | XMS_ITS | Encounter Summary ---
Author Organization [facility] Address [address] [place] [address] Care Team Providers Care Surface Plate Finisher Name Role Phone Shaikh UCHE Rizzo Primary Care Provider [phone] Encounter Details Date Type Department Care Team (Late st Contact Info) Description 10/27/2024 Telephone [facility] OB [address] [place] [address] [place] [address] Frances Espinosa MA Social History Tobacco Use Types Packs/Day Years Used Date Smoking Tobacco: Never Smokeless Tobacco: Never Alcohol Use Standard Drinks/Week Comments Never 0 (1 standard drink = 0.6 oz pur e alcohol) Comments Unknown Sex and Gender Information Value Date Recorded Sex Assigned at Not on file Legal Sex Female 7:01 PM EDT Gender Identity Not on file Sexual Orientation Not on file documented as of this encounter Miscellaneous Notes * Telephone Encounter - Frances Espinosa MA - 10/27/2024 3:20 PM EDT Hi, this is Danelle Reina. I had called earlier about having some bleeding in my first trimester since then, it has become like quite a bit more of bleeding and a little bit of cramping. I know it isearly. I think I am around 6 or 7 weeks, so I assume there is nothing I needed to do, but I just wanted to make sure I did not need to, like, go get checked out or something. Maybe can give me a call back at [phone]. Thanks. Advised pt she can go to ER to bee seen, Pt agreeable and will head over to [facility] * Telephone Encounter - Frances Espinosa MA - 10/27/2024 9:06 AM EDT OB: 6w 0d - by LMP: 09/15/2024 No dating scan has been done yet Pt called in with dark red spotting that started yesterday and has continued on today. Pt does report [place] yesterday. HCG and ultrasound offered, pt agreeable. Pt to picking tech HCG order and U/S sent to [facility]. OK per vane to order U/S documented in this encounter Plan of Treatment Upcoming Encounters Date Type Department Care Team (Late st Contact Info) Description 11/13/2024 1:30 PM EDT Ancillary Procedure [facility] OB [facility] [place] [address] 11/13/2024 2:00 PM EDT Initial [facility] OB [facility] [place] [address] 11/26/2024 2:00 PM EDT Office Visit [facility] OB [address] [place], [place] [address] [address] Kelsey Ruiz PA [address] [facility] [place] [address] Scheduled Orders Name Type Priority Associated Diagnoses Orde r Schedule hCG, quantitative, Lab Routine Bleeding in early 2 Occurrences starting 10/27/2024 until 10/27/2025 US OB transvaginal Imaging Routine Missed menses Expected: 10/27/2024, Expires: 01/27/2025 documented as of this encounter Visit Diagnoses Diagnosis Bleeding in early Unspecified hemorrhage in early , unspecified as to episode of care Missed menses documented in this encounter Care Teams Surface Plate Finisher Relationship Specialty Start Date End Date Shaikh Rizzo MD [address] [place] [address] PCP - General Internal Medicine 07/11/23 documented as of this encounter
--- OUTSIDE RECORDS SUMMARY | 2024-11-05 16:27 | XMS_ITS | Encounter Summary ---
Author Organization [facility] Address [address] [place] [address] Care Team Providers Care Campus Ambassador Name Role Phone Shaikh UCHE Rizzo Primary Care Provider [phone] Encounter Details Date Type Department Care Team (Late st Contact Info) Description 10/30/2023 Orders Only [facility] OB [address] [place] [address] Linda Markham LPN [address] [place] [id number] Social History Tobacco Use Types Packs/Day Years [...] on file documented as of this encounter Plan of Treatment Upcoming Encounters Date Type Department Care Team (Late st Contact Info) Description 11/13/2024 1:30 PM EDT Ancillary Procedure [facility] OB [address] [place], [place] [address] [address] 11/13/2024 2:00 PM EDT Initial [facility] OB [facility] [place] [address] 11/26/2024 2:00 PM EDT Office Visit [facility] OB [address] [place], [place] [address] [address] Kelsey Ruiz PA [address] [place] [address] [place] [address] documented as of this encounter Procedures Procedure Name Priority Date/Time Associated Diagnosis Comments PAP SMEAR Routine 10/22/2023 12:00 AM EDT documented in this encounter Results * Pap Smear (10/22/2023 12:00 AM EDT) Swab Cervical swab / Unknown us [facility] [place] Nurse LAB CYTOLOGY ORDERABLES Final Result EXTERNAL LAB documented in this encounter Visit Diagnoses Not on filedocumented in this encounter Care Teams Campus Ambassador Relationship Specialty Start Date End Date Shaikh Rizzo MD [address] [place] [address] PCP - General Internal Medicine 07/11/23 documented as of this encounter
--- OUTSIDE RECORDS SUMMARY | 2024-11-05 16:27 | XMS_ITS | Encounter Summary ---
Author Organization [facility] Address [address] [place] [address] Care Team Providers Care Fan Blade Aligner Name Role Phone Shaikh UCHE Rizzo Primary Care Provider [phone] Shaikh UCHE Rizzo Primary Care Provider [phone] Encounter Details Date Type Department Care Team (Late Contact Info) Description 01/05/2023 Abstract [facility] [address] [facility] [place] [address] Kelsey Ruiz PA [address] [place] [address] [place], [place] [id number] Social History Tobacco Use Types Packs/Day Years Used Date Smoking Tobacco: Never Smokeless Tobacco: Never Alcohol Use Standard Drinks/Week Comments Never 0 (1 standard drink = 0.6 oz pur e alcohol) Comments Yes Sex and Gender Information Value Date Recorded Sex Assigned at Not on file Legal Sex Female 7:01 PM EDT Gender Identity Not on file Sexual Orientation Not on file COVID-19 Exposure Response Date Recorded In the last 10 days, have yo u been in contact with someone who was confirmed or suspected to have Coronavirus/COVID-19? No / Unsure 01/01/2023 8:53 AM EDT documented as of this encounter Plan of Treatment Upcoming Encounters Date Type Department Care Team (Late Contact Info) Description 11/13/2024 1:30 PM EDT Ancillary Procedure [facility] [address] [facility] [place] [address] 11/13/2024 2:00 PM EDT Initial [facility] [address] [facility] [address] 11/26/2024 2:00 PM EDT Office Visit [facility] OB [address] [facility] [address] Kelsey Ruiz, PA [address] [facility] [place] [address] documented as of this encounter Visit Diagnoses Not on filedocumented in this encounter Care Teams Fan Blade Aligner Relationship Specialty Start Date End Date Shaikh Rizzo MD PCP - General Internal Medicine 11/23/22 07/10/23 Shaikh Rizzo MD [address] [place] [address] PCP - General Internal Medicine 07/11/23 documented as of this encounter
--- OUTSIDE RECORDS SUMMARY | 2024-11-05 16:27 | XMS_ITS | Encounter Summary ---
Author Organization [facility] Address [address] [place] [address] Care Team Providers Care Casing Crew Name Role Phone Shaikh UCHE Rizzo Primary Care Provider [phone] Encounter Details Date Type Department Care Team (Late st Contact Info) Description 10/27/2024 Clinisync Result Encounter [facility] External Department Unsolicited Davon Connors DO [address] [place], [place] [id number] Social History Tobacco Use Types Packs/Day Years [...] EDT Ancillary Procedure [facility] [address] [place] [address] 11/13/2024 2:00 PM EDT [place] [address] 11/26/2024 2:00 PM EDT Office Visit [facility] [place] [address] Kelsey Ruiz PA [address] [place] [address] documented as of this encounter Procedures Procedure Name Priority Date/Time Associated Diagnosis Comments [facility] PREG QUANT HCG Routine 10/27/2024 2: 19 PM EDT documented in this encounter Results * [facility] PREG QUANT HCG (10/27/2024 2:19 PM EDT) HCG QUANTITATIVE 54 mIU/mL [facility] Comment: 5-50 0.2-1 WEEK 50-500 1-2 WEEKS 100-5,000 2-3 WEEKS 500-10,000 3-4 WEEKS 1,000-50,000 4-5 WEEKS 10,000-100,000 5-6 WEEKS 15,000-200,000 6-8 WEEKS 10,000-100,000 2-3 MONTHS 10/27/2024 2:19 PM EDT 10/27/2024 2:21 PM EDT Narrative [facility] - 10/27/2024 3:22 PM EDT us Davon Waylon DO CLINISYNC Final Result [facility] documented in this encounter Visit Diagnoses Not on filedocumented in this encounter Care Teams Casing Crew Relationship Specialty Start Date End Date Shaikh Rizzo MD [address] [place] [address] PCP - General Internal Medicine 07/11/23 documented as of this encounter
--- OUTSIDE RECORDS SUMMARY | 2024-11-05 16:27 | XMS_ITS | Patient Health Record ---
Author Organization [facility] [place] Address [address] [place] [address] Care Team Providers Care Bite Block Maker Name Role Phone Radha Valle MD Primary Care Provider Unava ilable Reason For Referral No Information Plan Of Treatment No Information Insurance Providers Payer Name Payer Address Payer Phone Subscriber Number Group Number Insured Name Patient Relationship to Insured Coverage Start Date Coverage End Date [employer] [place] [address] [place] [id number] Slava Baldwin Natural Child - Insured does not have Financial Responsibility (includes legally adopted child) 5
--- OUTSIDE RECORDS SUMMARY | 2024-11-05 16:27 | XMS_ITS | Encounter Summary ---
Author Organization [facility] Address [address] [facility] [place] [address] Care Team Providers Care Clinical Marketing Manager Name Role Phone Shaikh UCHE Rizzo Primary Care Provider [phone] Encounter Details Date Type Department Care Team (Late st Contact Info) Description 10/28/2024 Telephone [facility] [address] [place] [address] [place] [address] Veronica Henson LPN Social History Tobacco Use Types Packs/Day Years [...] encounter Miscellaneous Notes * Telephone Encounter - Veronica Henson LPN - 10/28/2024 9:12 AM EDT 10/27/24 Dr. Connors called patient to discuss ER visit and plan of care. Discussed with patient having a standing order for HCG Quant to be drawn as directed until levels are below 5. PVU and will have labs redrawn next week. Order will be sent to [facility] to have drawn. Documented on behalf of Dr. Davon Connors, by Veronica Otto LPN documented in this encounter Plan of Treatment Upcoming Encounters Date Type Department Care Team (Late st Contact Info) Description 11/13/2024 1:30 PM EDT Ancillary Procedure [facility] [address] [place] [address] 11/13/2024 2:00 PM EDT Initial [facility] [address] [place] [phone] 11/26/2024 2:00 PM EDT Office Visit [facility] [address] [place] [address] Kelsey Ruiz PA [address] [facility] [place] [address] Scheduled Orders Name Type Priority Associated Diagnoses Orde r Schedule hCG, quantitative, Lab Routine Incomplete spontaneous Expected: 10/28/2024 (Approximate), Expires: 10/28/2025 documented as of this encounter Visit Diagnoses Diagnosis Incomplete spontaneous Incomplete spontaneous without mention of complication documented in this encounter Care Teams Clinical Marketing Manager Relationship Specialty Start Date End Date Shaikh Rizzo MD [address] [place] [address] PCP - General Internal Medicine 07/11/23 documented as of this encounter
--- OUTSIDE RECORDS SUMMARY | 2024-11-05 16:27 | XMS_ITS | Encounter Summary ---
Author Organization [facility] Address [address] [place] [address] Care Team Providers Care Postbed Stitcher Name Role Phone Shaikh UCHE Rizzo Primary Care Provider [phone] Shaikh UCHE Rizzo Primary Care Provider [phone] Encounter Details Date Type Department Care Team (Late Contact Info) Description 12/28/2022 Abstract [facility] [address] [facility] [place] [address] Davon Connors, [address] Lena Farrell, [facility] Social History Tobacco Use Types Packs/Day Years [...] suspected to have Coronavirus/COVID-19? No / Unsure 12/24/2022 6:09 PM EDT documented as of this encounter Plan of Treatment Upcoming Encounters Date Type Department Care Team (Late Contact Info) Description 11/13/2024 1:30 PM EDT Ancillary Procedure [facility] [address] [facility] [place] [place] [address] 11/13/2024 2:00 PM EDT Initial [facility] [address] [facility] [address] [place] [address] 11/26/2024 2:00 PM EDT Office Visit [facility] [address] [place] [address] Kelsey Ruiz, PA [address] [facility] [address] [place] [address] documented as of this encounter Visit Diagnoses Not on filedocumented in this encounter Care Teams Postbed Stitcher Relationship Specialty Start Date End Date Shaikh Rizzo MD PCP - General Internal Medicine 11/23/22 07/10/23 Shaikh Rizzo MD [address] [place] [address] PCP - General Internal Medicine 07/11/23 documented as of this encounter
--- OUTSIDE RECORDS SUMMARY | 2024-11-05 16:27 | XMS_ITS | Clinical Summary ---
Author Organization [facility] Address [address] [place] [address] Care Team Providers Care E Learning Designer Name Role Phone Shaikh UCHE Rizzo Primary Care Provider [phone] Allergies No known active allergies Medications venlafaxine XR (Effexor XR) 37.5 MG 24 hr capsuleIndicatio ns:Anxiety, generalized (CMS/HCC) Take 1 capsule (37.5 mg) by mouth Daily Do not crush or chew. 30 capsule 11 08/08/2023 Active Active Problems Problem Noted Date Diagnosed Date Folliculitis 11/22/2022 Migraine with status migrainosus, not intractabl e 11/22/2022 Missed period 11/22/2022 Tachycardia 11/22/2022 History of enlargement of pituitary gland 2014 Encounters Date Type Department Care Team Description 10/28/2024 Telephone [facility] [address] [facility] [place] [address] Veronica Henson LPN 10/27/2024 Clinisync Result Encounter [facility] External Department Unsolicited Davon Connors DO 10/27/2024 Telephone [facility] [address] [facility] [address] [place] [address] Frances Espinosa MA from Last 3 Months Family History Medical History Relation Name Comments Arthritis Father Breast cancer Other Great Grandmother Relation Name Status Comments Father Alive Mother Alive Other Great Grandmother Social History Tobacco Use Types Packs/Day Years Used Date Smoking Tobacco: Never Smokeless Tobacco: Never Tobacco Cessation:Counseling Given: Not Answered Alcohol Use Standard Drinks/Week Comments Never 0 (1 standard drink = 0.6 oz pur e alcohol) Comments Unknown Sex and Gender Information Value Date Recorded Sex Assigned at Not on file Legal Sex Female 7:01 PM EDT Gender Identity Not on file Sexual Orientation Not on file Last Filed Vital Signs Vital Sign Reading Time Taken Comments Blood Pressure 110/74 10/22/2023 3:39 PM EDT Pulse - - Temperature - - Respiratory Rate - - Oxygen Saturation - - Inhaled Oxygen Concentration - - Weight 83 kg (183 lb) 10/22/2023 3:39 PM EDT Height 162.6 cm (5' 4 ) 10/31/2022 12:00 PM EDT Body Mass Index 31.41 10/31/2022 12:00 PM EDT Plan of Treatment Upcoming Encounters Date Type Department Care Team (Late st Contact Info) Description 11/13/2024 1:30 PM EDT Ancillary Procedure [facility] [address] [place] [phone] 11/13/2024 2:00 PM EDT Initial [facility] [address] [place] [phone] 11/26/2024 2:00 PM EDT Office [place] [phone] Kelsey Ruiz PA [address] [facility] [address] [place], [place] [id number] Procedures Procedure Name Priority Date/Time Associated Diagnosis Comments [facility] PREG QUANT HCG Routine 10/27/2024 2: 19 PM EDT from Last 3 Months Results * [facility] PREG QUANT HCG (10/27/2024 2:19 PM EDT) Pathologist [facility] HCG QUANTITATIVE 54 mIU/mL TB Comment: 5-50 0.2-1 WEEK 50-500 1-2 WEEKS 100-5,000 2-3 WEEKS 500-10,000 3-4 WEEKS 1,000-50,000 4-5 WEEKS 10,000-100,000 5-6 WEEKS 15,000-200,000 6-8 WEEKS 10,000-100,000 2-3 MONTHS 10/27/2024 2:19 PM EDT 10/27/2024 2:21 PM EDT Narrative [facility] - 10/27/2024 3:22 PM EDT us Davon Connors DO [facility] Final Result [facility] Last 3 Months Insurance [facility] Address[facility] [address] [place] [address] Care Teams E Learning Designer Relationship Specialty Start Date End Date Shaikh Rizzo MD [address] [place] [phone] PCP - General Internal Medicine 07/11/23
--- OUTSIDE RECORDS SUMMARY | 2024-11-05 16:30 | XMS_ITS | CCD ---
Author Organization [facility] Care Team Providers Care Pump Runner Name Role Phone WAYLON ., DR MORIN Admitting Unavailable WAYLON ., DR MORIN Attending Unavailable REQUEST, DR NONE LISTED Primary Care Unavaila ble WAYLON ., DR MORIN Consulting Unavailable ZIEBER, DR JESE Franco Consulting Unavailable DHARMESH ., AMILCAR Admitting Unavailable DHARMESH ., AMILCAR Attending Unavailable PEARL, GARCIA H Primary Care Unavailable VIRGIL ., KELSEY Consulting Unavailable VIRGIL ., KELSEY Admitting Unavailable VIRGIL ., KELSYE Attending Unavailable PEARL, GARCIA H Primary Care Unavailable VIRGIL ., KELSEY Consulting Unavailable VIRGIL ., KELSEY Admitting Unavailable VIRGIL ., KELSEY Attending Unavailable FAJP, GARCIA H Primary Care Unavailable ZIEBER, DR JESE Franco Consulting Unavailable VIRGIL ., KLESEY Consulting Unavailable REQUEST, DR NONE LISTED Consulting Unavaila Maggie Patel Unavailable MICKEY Bailey Attending Provider KaminiLinda gunnela Unavailable NO FAMILY, PHYSICIAN Primary Care Provider Unava ilable Patience Connors Attending Provider Patience Connors Admitting Unavailable NO FAMILY, PHYSICIAN Primary Care Unavailable Patience Connors Attending Unavailable Annel Bailey Attending Unavailable Annel Bailey Admitting Unavailable NO FAMILY, PHYSICIAN Primary Care Unavailable NO FAMILY, PHYSICIAN Primary Care Provider Unava ilable Patience Connors Attending Provider [phone] NIKKI CONNORSY Attending Unavailable NIKKI CONNORSY Attending Unavailable KELSEY HERMAN Attending Unavailable PATIENCE CONNORS Attending Unavailable Shaikh Rizzo MD Primary Care Provider [phone] Medications Current Medications Medication Drug Class(es) Dates Sig (Normalized) Sig (Original) amoxicillin 500 mg oral capsule (3 sources) Penicillin-class Antibacterial Start: 10-25-2024 take 1 capsule by mouth twice daily Amoxicillin 500 mg capsule Active 500 MG PO Twice daily October 25, 2024 12:00am Start: 05-23-2019 take 1 tablet by raya th every twelve hours Amoxicillin 875 MG 1 tablet Orally every 12 hrs for 7 days May, Not-Taking cephalexin 500 mg oral capsule (4 sources) Cephalosporin Antibacterial Start: 07-07-2023 take 1 capsule by mouth every eight hours Cephalexin 500 MG 1 capsule Orally three times a day for 10 day(s) Jun, Active Start: 11-16-2022 take 1 capsule by mo uth every eight hours Cephalexin 500 MG 1 capsule Orally every 8 hrs for 7 12 Mar, 2023 Active No.167-Folic Acid-D aj (One-A-Day ) 400 mcg- 25 mg tablet,chewable (1 source) Start: 10-25-2024 No.16 7-Folic Acid-Dha (One-A-Day ) 400 mcg- 25 mg tablet,chewable Active TAB PO October 25, 2024 12:00am Completed/Discontinued Medications Medication Drug Class(es) Dates Sig (Normalized) Sig (Original) dextromethorphan hydrobromide 1.5 mg/ml / pyrilamine maleate 1.5 mg/ml oral solution (2 sources) Uncompetitive A-awjadk-I-aspartat e Receptor Antagonist, Sigma-1 Agonist Start: 05-23-2019 [place] DM 7.5-7.5 MG/5ML 10 ml Orally every [...] Start: 12-17-2019 TB Test Dec .05 mL 24 hr venlafaxine 37.5 mg extended release oral capsule (3 sources) Serotonin and Norepinephrine Reuptake Inhibitor Start: 08-30-2023 End: 10-25-2024 take 1 capsule by mouth every twenty-four hours Venlafaxine 37.5 mg capsule,extended release 24hr Discontinued MG PO August 30, 2023 12:00am October 25, 2024 9:43am Start: 08-30-2023 Venlafaxine Ac tive MG PO August 30, 2023 12:00am Start: 08-08-2023 take 1 capsule by mo uth once daily venlafaxine XR (Effexor XR) 37.5 MG 24 hr capsule Indications: Anxiety, generalized (CMS/HCC) Take 1 capsule (37.5 mg) by mouth Daily Do not crush or chew. 30 capsule 11 08/08/2023 Active Problems Active Problems Problem Classification Problem Date Documented Date Episodic/Chronic Contraceptive and procreative management (10 sources) Surveillance of contraception; Translations: [Encounter for surveillance of other contraceptives] Resolved: 07-02-2020 Episodic Headache; including migraine (3 sources) Migraine without aura, not refractory ; Translations: [Migraine without aura, without mention of intractable migraine without mention of status migrainosus] Onset: 05-16-2018 Resolved: 07-01-2020 11-22-2022 Chronic Immunizations and screening for infectious disease (6 sources) Encounter for screening for infections with a predominantly sexual mode of transmission; Translations: [Encounter for screening for other viral diseases] Resolved: 07-01-2020 Episodic Menstrual disorders (4 sources) Irregular menstruation, unspecified; Translations: [Missed period] Onset: 08-07-2022 Chronic Nausea and vomiting (3 [...] disorder, unspecified; Translations: [Follicular disorder, unspecified] Episodic Residual codes; [...] [Pelvic and perineal pain] Resolved: 07-01-2020 Episodic Cardiac dysrhythmias (3 sources) Tachycardia; Translations: [Tachycardia, unspecified] Onset: 11-22-2022 11-22-2022 Episodic Genitourinary symptoms and ill-defined conditions (2 sources) Dysuria; Translations: [Dysuria] Onset: 11-16-2022 Episodic Other nutritional; endocrine; and metabolic disorders [...] nutritional; endocrine; and metabolic disorders (1 source) H/O: endocrine disorder; Translations: [Personal history of other endocrine, nutritional and metabolic disease] Onset: 12-03-2014 12-20-2022 Episodic Other skin disorders (2 sources) Hair and hair follicle diseases; Translations: [Other specified disease of hair and hair follicles] Onset: 01-23-2019 Resolved: 07-01-2020 Episodic Other skin disorders (2 sources) Acne; Translations: [Acne, unspecified] Onset: 05-16-2018 Resolved: 07-01-2020 Episodic Other skin disorders (2 sources) Folliculitis; Translations: [Follicular disorder, unspecified] Onset: 11-22-2022 11-22-2022 Episodic Other upper respiratory disease (1 source) [...] Test Name Value Interpretation Reference Range Facility [facility] PREG QUANT HCGon 025 HCG QUANTITATIVE 54 mIU/mL [facility] Comment on above: 5-50 0.2-1 WEEK 50-500 1-2 WEEKS 100-5,000 2-3 WEEKS 500-10,000 3-4 WEEKS 1,000-50,000 4-5 WEEKS 10,000-100,000 5-6 WEEKS 15,000-200,000 6-8 WEEKS 10,000-100,000 2-3 MONTHS [facility] No Panel InformationOrdered By: Maggie Braden on 10-25-2024 Quick Strep (POC) [facility] Johan 07-11-2023 L Specimen: [id number] Received: 07/12/23 Status: NYASIA Chavez Num: [id number] Spec Type: Surgical Subm Dr: Patience Connors Tissues: A Soft Tissue/Surgical Margin-Other than Tumor,Mass,Lip or Ryanne (TISSUE EPISIOT Procedures: HE, Gross/Micro L4 Age/ Patient Sex Location Account Attending Physician Danelle Baldwin LABELL [id number] Patience Connors SPEC NUM: [id number] RECD: 07/12/23 STATUS: SOUTasha TAFOYAQ NUM: [id number] KIMBERLYN: 07/11/23- SUBM DR: Patience Connors ENTERED: 07/12/[address] [facility] [address]: Margarito Farrell SPEC TYPE: Surgical [...] in one cassette labeled A1. CPT Codes 36485 Specimen: [id number] Received: 07/12/23 Status: NYASIA Tafoyaq Num: [id number] Spec Type: Surgical Subm Dr: Patience Connors Tissues: A Soft Tissue/Surgical Margin-Other than Tumor,Mass,Lip or Ryanne (TISSUE EPISIOT Procedures: HE, Aga/Renny L4 Patient: NicolasaDanelle Manuel [id number] (Continued) Signed (signature on file) Cedric Stern MD 07/14/23 [facility] Urinalysis - AUTOMATEDon Appearance (U) clear [employer] Other Bilirubin Ql (U) Negative [email or web address] Other Color (U) yellow [employer] Other Glucose Ql (U) Negative [employer] Other Hemoglobin Ql (U) trace intact [employer] Other Ketones Ql (U) Negative [employer] Other Leukocyte esterase Test strip Ql (U) small [employer] Other Nitrite Ql (U) Negative [employer] Other pH (U) 6.5 [pH] [employer] Other Protein Ql (U) Negative [employer] Other Specific gravity (U) [Rel density] 1.010 [employer] Other Urobilinogen (U) [Mass/Vol] 0.2 mg/dL [employer] Other Urinalysis - AUTOMATED No rt [place] Other Urine Cultureon 11-16-2022 Bacteria identified Cx Nom (U) <9,000 colonies/ml mixed bacterial skin contaminants 2 Days PERFORMED BY: [place] [address] PATHOLOGIST OCCUPATIONAL THERAPY TEACHER EZEKIEL TERRELL M.D. [facility] Comment on above: Performed By: #### C UU #### [address] US PREG ANATOMY SINGLEon US PREG ANATOMY SINGLE EXAMINATION: US P REG ANATOMY SINGLE, US PREG CERVICAL LENGTH HISTORY: [...] by: JESE MENDEZ Date: 2022-10-24 15:56 Normal [facility] Pap IG, rfx Aptima HPV, rfx 16/18,45on 10-10-2022 . . Normal [facility] Comment on above: Result Comment: Perf ormed at: WB Performed By: #### P APHR2A #### [facility] [address] [address] [address] Jason Cristina DIAGNOSIS: Comment Normal [facility] Comment on above: Result Comment: NEGA TIVE FOR INTRAEPITHELIAL LESION OR MALIGNANCY. FUNGAL ORGANISMS MORPHOLOGICALLY CONSISTENT WITH JENNIFER SPECIES ARE PRESENT. CELLULAR CHANGES ASSOCIATED WITH INFLAMMATION ARE PRESENT. Performed at: WB Performed By: #### P APHR2A #### [facility] [address] [address] [address] Jason Cristina HPV Aptima Negative Normal Negative [facility] Comment on above: Result Comment: This nucleic acid amplification test detects fourteen high-risk HPV types (16,18,31,33,35,39,45,51,52,56,58,59,66,68) without differentiation. Performed at: =G Performed By: #### P APHR2A #### [facility] [address] [address] [address] Jason Cristina HPV Genotype Reflex Comment Normal [facility] Comment on above: Result Comment: Crit eria not met, HPV Genotype not performed. Performed at: WB Performed By: #### P APHR2A #### [facility] [address] [address] [address] Jason Cristina Methodology: Comment Normal [facility] Comment on above: Result Comment: This liquid based ThinPrep(R) pap test was screened with the use of an image guided system. Performed at: WB Performed By: #### P APHR2A #### [facility] [address] [address] [address] Jason Cristina Note: Comment Normal [facility] Comment on above: Result Comment: The Pap smear is a screening test designed to aid in the detection of premalignant and malignant conditions of the uterine cervix. It is not a diagnostic procedure and should not be used as the sole means of detecting cervical cancer. Both false-positive and false-negative reports do occur. . Performed at: WB Performed By: #### P APHR2A #### [facility] [address] [place] [address] Dr. Jason Cristina Performed by: Comment Normal [facility] Comment on above: Result Comment: Jazmin Forbes, Buffing And Polishing Wheel Repairer (ASCP) Performed at: WB Performed By: #### P APHR2A #### [facility] [address] [place] [address] Dr. Jason Cristina Specimen adequacy: Comment Normal [facility] Comment on above: Result Comment: Sati sfactory for evaluation. Endocervical and/or squamous metaplastic cells (endocervical component) are present. Performed at: WB Performed By: #### P APHR2A #### [facility] [address] [place] [address] Dr. Jason Cristina CBC W MANUAL DIFFon 09-11-19 23 ATYPICAL LYMPH # 0.10 103/ul Normal [facility] Comment on above: Performed By: #### C ELA #### [facility] [address] [place] [address] Dr. Jason Cristina ATYPICAL LYMPH % 1 % Normal [facility] Comment on above: Performed By: #### C ELA #### [facility] [address] [place] [address] Dr. Jason Cristina BAND # 0.0 103/ul Normal 0.0-0.3 [facility] Comment on above: Performed By: #### C ELA #### [facility] [address] [place] [address] Dr. Jason Cristina BAND % 0 % Normal 0-5 [facility] Comment on above: Performed By: #### C ELA #### [facility] [address] [place] [address] Dr. Jason Cristina BASOM # 0.00 103/ul Normal 0.00-0.10 [facility] Comment on above: Performed By: #### C BCAJ #### [facility] [address] [place] [address] Dr. Jason Cristina BASOM % 0.0 % Critically low 0.2-2.0 [facility] Comment on above: Performed By: #### C BCAJ #### [facility] [address] [place] [address] Dr. Jason Cristina BLAST # Normal [facility] Comment on above: Performed By: #### C BCAJ #### [facility] [address] [place] [address] Dr. Jason Cristina BLAST % Normal [facility] Comment on above: Performed By: #### C ELA #### [facility] [address] [place] [address] Dr. Jason Cristina CORRECTED WBC Normal 4.0-11.0 [facility] Comment on above: Performed By: #### C ELA #### [facility] [address] [place] [address] Dr. Jason Cristina EOS # 0.00 103/ul Normal 0.00-0.70 [facility] Comment on above: Performed By: #### C ELA #### [facility] [address] [place] [address] Dr. Jason Cristina EOS% 0.0 % Critically low 0.9-7.0 [facility] Comment on above: Performed By: #### C ELA #### [facility] [address] [place] [address] Dr. Jason Cristina HCT 37.4 % Normal 36.0-48.0 [facility] Comment on above: Performed By: #### C ELA #### [facility] [address] [place] [address] Dr. Jason Cristina HGB 13.3 g/dl Normal 12.0-16.0 [facility] Comment on above: Performed By: #### C ELA #### [facility] [address] [place] [address] Dr. Jason Cristina LYMPHM # 0.39 103/ul Critically low 1.20-3.80 [facility] Comment on above: Performed By: #### C ELA #### [facility] [address] [place] [address] Dr. Jason Cristina LYMPHM% 4.0 % Critically low 20.5-60.0 [facility] Comment on above: Performed By: #### C ELA #### [facility] [address] [place] [address] Dr. Jason Cristina MCH 31.4 pg Normal 26.7-34.0 [facility] Comment on above: Performed By: #### C ELA #### [facility] [address] [place] [address] Dr. Jason Cristina MCHC 35.6 g/dl Critically high 29.9-35.2 [facility] Comment on above: Performed By: #### C ELA #### [facility] [address] [place] [address] Dr. Jason Cristina MCV 88.4 fL Normal 81.0-99.0 [facility] Comment on above: Performed By: #### C ELA #### [facility] [address] [place] [address] Dr. Jason Cristina METAMYELOCYTE # Normal [facility] Comment on above: Performed By: #### C ELA #### [facility] [address] [place] [address] Dr. Jason Cristina METAMYELOCYTE % Normal [facility] Comment on above: Performed By: #### C BCAJ #### [facility] [address] [place] [address] Dr. Jason Cristina MONOM# 0.19 103/ul Critically low 0.30-0.80 [facility] Comment on above: Performed By: #### C ELA #### [facility] [address] [place] [address] Dr. Jason Cristina MONOM% 2.0 % Normal 1.7-12.0 [facility] Comment on above: Performed By: #### C ELA #### [facility] [address] [address] [address] Jason Cristina MPV 10.0 fL Normal 9.5-13.5 [facility] Comment on above: Performed By: #### C ELA #### [facility] [address] [place] [address] Dr. Jason Cristina MYELOCYTE # Normal [facility] Comment on above: Performed By: #### C ELA #### [facility] [address] [place] [address] Dr. Jason Cristina MYELOCYTE % Normal [facility] Comment on above: Performed By: #### C ELA #### [facility] [address] [place] [address] Dr. Jason Cristina NRBC Normal [facility] Comment on above: Performed By: #### C ELA #### [facility] [address] [place] [address] Dr. Jason Cristina PLT 202 103/ul Normal 150-450 [facility] Comment on above: Performed By: #### C ELA #### [facility] [address] [place] [address] Dr. Jason Cristina RBC 4.23 106/ul Normal 4.20-5.40 [facility] Comment on above: Performed By: #### C ELA #### [facility] [address] [place] [address] Dr. Jason Cristina RDW 12.5 % Normal 11.0-15.0 [facility] Comment on above: Performed By: #### C ELA #### [facility] [address] [place] [address] Dr. Jason Cristina SEG # 9.02 103/ul Critically high 1.40-6.50 [facility] Comment on above: Performed By: #### C ELA #### [facility] [address] [place] [address] Dr. Jason Cristina SEG % 93.0 % Critically high 43.0-75.0 [facility] Comment on above: Performed By: #### C ELA #### [facility] [address] [place] [address] Dr. Jason Cristina WBC 9.7 103/ul Normal 4.0-11.0 [facility] Comment on above: Performed By: #### C BCMAN #### [facility] [address] [place] [address] Dr. Jason Cristina ER URINE PROFILEon 3 Bilirubin Ql (U) Negative Normal NEGATIVE [facility] Comment on above: Performed By: #### P REGU, ERUR #### [facility] [address] [place] [address] Dr. Jason Cristina Clarity (U) CLEAR Normal CLEAR [facility] Comment on above: Performed By: #### P REGU, ERUR #### [facility] [address] [place] [address] Dr. Jason Cristina Color (U) YELLOW Normal YELLOW [facility] Comment on above: Performed By: #### P REGU, ERUR #### [facility] [address] [place] [address] Dr. Jason CROWELLD A micrscopic examination will be performed if indicated. Normal [facility] Comment on above: Performed By: #### P REGU, ERUR #### [facility] [address] [place] [address] Dr. Jason Cristina Glucose Ql (U) Negative Normal NEGATIVE [facility] Comment on above: Performed By: #### P REGU, ERUR #### [facility] [address] [place] [address] Dr. Jason Cristina Hemoglobin Ql (U) Negative Normal NEGATIVE [facility] Comment on above: Performed By: #### P REGU, ERUR #### [facility] [address] [place] [address] Dr. Jason Cristina Ketones Ql (U) 15 mg/dl Abnormal NEGATIVE [facility] Comment on above: Performed By: #### P REGU, ERUR #### [facility] [address] [place] [address] Dr. Jason Cristina LEUKOCYTES Negative Normal NEGATIVE [facility] Comment on above: Performed By: #### P REGU, ERUR #### [facility] [address] [address] [address] Jason Cristina Nitrite Ql (U) Negative Normal NEGATIVE [facility] Comment on above: Performed By: #### P REGU, ERUR #### [facility] [address] [address] [address] Jason Cristina pH (U) 6.0 [pH] Normal 5-9 [facility] Comment on above: Performed By: #### P REGU, ERUR #### [facility] [address] [place] [address] Dr. Jason Cristina SPEC GRAVITY >=1.030 Abnormal 1.005-<=1.02 5 [facility] Comment on above: Performed By: #### P REGU, ERUR #### [facility] [address] [place] [address] Dr. Jason Cristina UA PROTEIN TRACE Normal NEGATIVE/ TRACE [facility] Comment on above: Performed By: #### P REGU, ERUR #### [facility] [address] [place] [address] Dr. Jason Cristina UR MICRO IND NOT INDICATED Normal [facility] Comment on above: Performed By: #### P REGU, ERUR #### [facility] [address] [address] [address] Jason Cristina Urobilinogen Qn (U) 1.0 {Josephine'U}/dL Normal 0.2 - 1. 0 [facility] Comment on above: Performed By: #### P REGU, ERUR #### [facility] [address] [place] [address] Dr. Jason Cristina URon 09-10-2022 , QUAL Positive Abnormal NEGATIVE [facility] Comment on above: Performed By: #### P REGU, ERUR #### [facility] [address] [place] [address] Dr. Jason Cristina PROF CHEM 8 (BAS METB)on Anion gap [Moles/Vol] 14.2 mmol/L Normal [facility] Comment on above: Performed By: #### B MP #### [facility] [address] [address] [address] Jason Cristina Calcium [Mass/Vol] 8.6 mg/dL Normal 8.5-10.1 [facility] Comment on above: Performed By: #### B MP #### [facility] [address] [address] [address] Jason Cristina Chloride [Moles/Vol] 100 mmol/L Normal 98-107 [facility] Comment on above: Performed By: #### B MP #### [facility] [address] [address] [address] Jason Cristina CO2 [Moles/Vol] 21.9 mmol/L Normal 21.0-32.0 [facility] Comment on above: Performed By: #### B MP #### [facility] [address] [address] [address] Jason Cristina Creatinine [Mass/Vol] 0.40 mg/dL Critically low 0.55-1.02 [facility] Comment on above: Performed By: #### B MP #### [facility] [address] [address] [address] Jason Cristina EGFR-AF SCOTTISH >60 Normal >=60 [facility] Comment on above: Performed By: #### B MP #### [facility] [address] [address] [address] Jason Cristina EGFR-NON AF SCOTTISH >60 Normal >=60 [facility] Comment on above: Performed By: #### B MP #### [facility] [address] [address] [address] Jaosn Cristina Glucose [Mass/Vol] 107 mg/dL Critically high 74-106 [facility] Comment on above: Performed By: #### B MP #### [facility] [address] [address] [address] Jason Cristina Potassium [Moles/Vol] 3.1 mmol/L Critically low 3.5-5.1 [facility] Comment on above: Performed By: #### B MP #### [facility] [address] [address] [address] Jason Cristina Sodium [Moles/Vol] 133 mmol/L Critically low 136-145 [facility] Comment on above: Performed By: #### B MP #### [facility] [address] [address] [address] Jason Cristina Urea nitrogen [Mass/Vol] 9.0 mg/dL Normal 7.0-18.0 [facility] Comment on above: Performed By: #### B MP #### [facility] [address] [address] [address] Jason Cristina Urea nitrogen/Creatinine [Mass ratio] 22.5 mg/mg Normal [facility] Comment on above: Performed By: #### B MP #### [facility] [address] [address] [address] Jason Cristina US PREG TVon 08-08-2022 [...] by: JESE MENDEZ Date: 2022-08-08 16:36 Normal [facility] Vital Signs Date Time Vital Sign Value Performing Clinician Facility 10-25-2024 09:42-0400 Body height 162.56 cm [facility] 10-25-2024 09:42-0400 Body mass index (BMI) [Ratio] 30.7 kg/m2 [facility] 10-25-2024 09:42-0400 Body temperature 99.3 [degF] [facility] 10-25-2024 09:42-0400 Body weight 81.3 kg [facility] 10-25-2024 09:42-0400 Diastolic blood pressure 74 mm[Hg] [facility] 10-25-2024 09:42-0400 Heart rate 110 /min [facility] 10-25-2024 09:42-0400 Respiratory rate 18 /min [facility] 10-25-2024 09:42-0400 SaO2% (BldA) [Mass fraction] 98 % [facility] 10-25-2024 09:42-0400 Systolic blood pressure 113 mm[Hg] [facility] 08-30-2023 09:41-0400 Body height 162.56 cm PHYSICIAN NO [facility] 08-30-2023 09:41-0400 Body mass index (BMI) [Ratio] 31.7 kg/m2 PHYSICIAN NO [facility] 08-30-2023 09:41-0400 Body temperature 98.3 [degF] PHYSICIAN NO [facility] 08-30-2023 09:41-0400 Body weight 83.97 kg PHYSICIAN NO [facility] 08-30-2023 09:41-0400 Heart rate 98 /min PHYSICIAN NO [facility] 08-30-2023 09:41-0400 Respiratory rate 18 /min PHYSICIAN NO [facility] 08-30-2023 09:41-0400 SaO2% (BldA) [Mass fraction] 98 % PHYSICIAN NO [facility] 07-07-2023 10:00-0500 Body height 162.56 cm Annetta Suárez Other [facility] 07-07-2023 10:00-0500 Body mass index (BMI) [Ratio] 32.34 kg/m2 Annetta Suárez Other [employer] [facility] [place] Other 07-07-2023 10:00-0500 Body temperature 98 [degF] Annetta Suárez Other [employer] [facility] [place] Other 07-07-2023 10:00-0500 Body weight 85.46 kg Annetta Suárez Other [facility] Other 07-07-2023 10:00-0500 Body weight 85.45 kg PHYSICIAN DAMON [facility] 07-07-2023 10:00-0500 Respiratory rate 18 /min Annetta Suárez Other [facility] Other 07-07-2023 10:00-0500 SaO2% (BldA) [Mass fraction] 98 % Annetta Suárez Other [facility] Other 03-29-2023 17:05-0400 Body height 162.56 cm Maggie Braden Other [facility] Other 03-29-2023 17:05-0400 Body mass index (BMI) [Ratio] 31.58 kg/m2 Maggie Braden Other [facility] Other 03-29-2023 17:05-0400 Body temperature 98.4 [degF] Maggie Braden Other [facility] Other 03-29-2023 17:05-0400 Body weight 83.46 kg Maggie Braden Other [facility] Other 03-29-2023 17:05-0400 Diastolic blood pressure 72 mm[Hg] Maggie Braden Other [facility] Other 03-29-2023 17:05-0400 Respiratory rate 18 /min Maggie Braden Other [facility] Other 03-29-2023 17:05-0400 SaO2% (BldA) [Mass fraction] 98 % Maggie Braden Other [facility] Other 10-12-2023 17:05-0400 Systolic blood pressure 128 mm[Hg] Maggie Braden Other [facility] Other 11-16-2022 11:20-0400 Body height 162.56 cm Maggie Braden Other [facility] Other 11-16-2022 11:20-0400 Body mass index (BMI) [Ratio] 32.09 kg/m2 Maggie Braden Other [facility] Other 11-16-2022 11:20-0400 Body temperature 98.8 [degF] Maggie Braden Other [facility] Other 11-16-2022 11:20-0400 Body weight 84.82 kg Maggie Braden Other [facility] Other 11-16-2022 11:20-0400 Respiratory rate 18 /min Maggie Braden Other [facility] Other 11-16-2022 11:20-0400 SaO2% (BldA) [Mass fraction] 99 % Maggie Braden Other [employer] Other Encounters Encounter Date Encounter Type Care Provider Facility Start: 10-27-2024 End: 10-27-2024 Clinisync Result Encounter Patience Connors DO Work Phone: [facility] External [facility] Unsolicited Start: 10-27-2024 End: 10-27-2024 Clinis[facility] Result Encounter Patience Ortezo DO Work Phone: [facility] External [facility] Unsolicited Start: 10-25-2024 End: 10-25-2024 ambulatory [facility] Work Phone: Start: 10-25-2024 End: 10-25-2024 Patient encounter procedure [facility] Work Phone: Start: 10-22-2023 End: 10-22-2023 ambulatory PATIENCE WAYLON Not Available Start: 08-30-2023 End: 08-30-2023 ambulatory PHYSICIAN NO [facility] Work Phone: Start: 08-30-2023 End: 08-30-2023 Patient encounter procedure PHYSICIAN NO [facility] Work Phone: Start: 08-08-2023 End: 08-08-2023 ambulatory PATIENCE WAYLON Not Available Start: 07-12-2023 End: 07-12-2023 ambulatory PHYSICIAN NO [facility] Work Phone: Start: 07-12-2023 End: 07-12-2023 Departed Referred PHYSICIAN NO [facility] Start: 07-11-2023 End: 07-11-2023 ambulatory PATIENCE WAYLON Not Available Start: 07-07-2023 End: 07-07-2023 ambulatory Annetta Suárez Other [facility] Other Start: 07-07-2023 Office outpatient vi sit 15 minutes Annetta Suárez [facility] Start: 07-07-2023 End: 07-07-2023 Patient encounter procedure PHYSICIAN NO [facility]- Start: 04-30-2023 End: 04-30-2023 ambulatory KELSEY HERMAN Not Available Start: 03-29-2023 End: 03-29-2023 ambulatory Maggie Braden Other [facility] Other Start: 03-29-2023 Office outpatient vi sit 15 minutes Maggie Braden [facility] Start: 11-16-2022 Office outpatient vi sit 15 minutes Maggie Braden [facility] Start: 11-16-2022 End: 11-16-2022 ambulatory Annel Bailey [facility] Other Start: 11-16-2022 End: 11-16-2022 Departed Referred NURSE ORTHOPAEDIC Annel Bailey Work Phone: [facility] [place] Work Phone: Start: 10-24-2022 End: 10-25-2022 ambulatory KELSEY HERMAN . Facility:[facility] Start: 10-03-2022 End: 10-03-2022 ambulatory KELSEY HERMAN . Facility:[facility] Start: 09-10-2022 End: 09-11-2022 ambulatory AMILCAR BARROSO . Facility:[facility] Start: 08-07-2022 End: 08-08-[address] PATIENCE CONNORS . Facility:[facility] Start: 07-01-2020 End: 07-01-2020 Encounter for gynecological examination (general) (routine) without abnormal findings Maggie Braden Other [facility] Other Start: 07-01-2020 End: 07-01-2020 Gynecological examination normal Annetta Suárez Other [facility] Other Procedures Date Procedure Procedure Detail Performing Clinician Start: 10-27-2024 [facility] PREG QUANT HCG Core y Waylon DO Work Phone: Start: 10-25-2024 Quick Strep (POC) Start: 05-16-2018 End: 07-01-2020 General examination of patient Annetta Suárez Other End: 02-20-2018 Contraception care education Maggie Braden Other School admission med ical examination Maggie Braden Other Plan of Treatment Date Care Activity Detail Author Start: 11-26-2024 End: 11-26-2024 Patient encounter procedure 11/26/2024 2:00 PM EDT Office Visit [facility] [address] [address] Kelsey Herman, PA [address] [place] [address] [facility] Start: 11-13-2024 End: 11-13-2024 ambulatory 11/13/2024 2:00 PM EDT Initial [facility] [address] [address] [facility] Start: 11-13-2024 End: 11-13-2024 Professional / ancillary services management 11/13/2024 1:30 PM EDT Ancillary Procedure [facility] [address] [address] [facility] Start: 11-16-2022 Bacteria identified in Urine by Culture Urine Culture [facility] Immunizations Immunization Date Immunization Notes Care Provider Fa cility 12-01-2019 tetanus and diphther ia toxoids, adsorbed, preservative free, for adult use (5 Lf of tetanus toxoid and 2 Lf of diphtheria toxoid) Maggie Braden Other [facility] Payers Date Payer Category Payer Self-pay 2003 Managed Care O (unspecified) [employer] [id number] 1999 Unknown [id number] [id number] 1999 Unknown [id number]. [id number] 1999 Unknown [id number] [id number]. 2.593 1999 Unknown [id number] [id number]. [id number] 1999 Unknown [id number] [id number]. 2.1259 1999 Unknown [id number] [id number]. 2.9 1999 Unknown [id number] [id number]. 2.1259 1999 Unknown [id number] [id number]. 2.1259 1959 Medicaid [id number] 1960 Private Health Insurance [id number] Unknown [id number] [id number]. 2.531 Unknown [id number] [id number]. 2.531 Social History Date Type Detail Facility Unknown if ever smoked [facility] [place] Other Start: 08-08-2023 Sex Assigned At N [facility] [place] Other Start: 2000 Sex Assigned At Female [facility] Start: 08-30-2023 End: 10-25-2024 Tobacco smoking status OHIS Never smoked tobacco (finding) [facility] Start: 12-21-2022 Tobacco use and exposure Smokeless tobacco non-user [facility] Start: 10-22-2023 Alcoholic beverage intake Lifetime non-drinker (finding) [facility] Start: 08-08-2023 History of Social function [facility] Start: 2000 Sex assigned at Not on file N [facility] Start: 10-25-2024 Sex Female (finding) [facility] Evaluation note 07-07-2023 Note Date [...] no improvement in 2 to 3 days. [facility] Other Evaluation note 03-29-2023 Note Date & [...] continue breast-feeding. Follow up with PCP or EDUCATION TRAINER if symptoms do not improve. Immediate evaluation in ER for signs/symptoms as discussed. Patient verbalizes understanding and is agreeable with treatment plan Mar, Other Mastitis home care material was printed [facility] Other History general Narrative - Reported 03-13-2023 Note Date & Type Note Facility 03-13-2023 History general N arrative - Reported Type Medical History Acne Surgical History No know Surgical history Hospitalization History vaginal 3 [facility] Other Evaluation note 11-16-2022 Note Date & [...] worsening. Patient verbalized understanding of treatment plan. [facility] Other Evaluation note Note Date & Type Note Facility Evaluation note No assessment information [facility] Work Phone: History general Narrative - Reported Note Date & Type Note Facility History general Narrative - Reported Type Medical History Acne [facility] Other History general Narrative - Reported Note Date & Type Note Facility History general Narrative - Reported Type Medical History Acne Surgical History No Surgical history information [facility] Other Summary Purpose Family History No Family History Records FoundNo Family History Records FoundNo Family History Records Found Advance Directives Advance Directive Response Recorded Date/ Time Advance Directives No November 22 6:52am Advance Directive Response Recorded Date/ Time Advance Directives No November 22 7:52am Chief Complaint and Reason for Visit Chief Complaint Admit Date sore throat, swollen glands October 25 9:19am Chief Complaint Poss Mastitis L92.9 cough, runny nose, congestion Additional Source Comments INFORMATION SOURCE (unrecogn ized section and content) DATE CREATED AUTHOR 10/29/2022 [facility] DATE CREATED AUTHOR AUTHOR'S ORGANIZ ATION 08/07/2023 [facility] DATE CREATED AUTHOR AUTHOR'S ORGANIZ ATION 10/23/2023 [facility] EPIC REASON FOR VISIT [...] August 30, 2023 End: August 30, 2023 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 [employer] provides no warranty or guarantee of the accuracy or completeness of information in this document.
[2024-11-05 17:08] LABS: HCG Quantitative <1 mIU/mL
== END 2024-11-05 16:25 | disposition home or self-care (01) ==
LOC: LAB 16:25
PROVIDERS: Visit Provider Obstetrics & Gynecology
DX: O03.4 Incomplete spontaneous abortion without complication (principal)
CPT/HCPCS: 36415; 84702

== ENCOUNTER 2024-11-26 20:00 | Outpatient (REF) | payer OTHER, MEDICAID, SELFPAY ==
--- OUTSIDE RECORDS SUMMARY | 2024-11-26 20:07 | XMS_ITS | CCD ---
Author Organization [facility] Care Team Providers Care Scrap Collector Name Role Phone WAYLON ., DR MORIN [...] Admitting Unavailable VIRGIL ., KELSEY Attending Unavailable PEARL, GARCIA H Primary Care Unavailable VIRGIL ., KELSEY Consulting Unavailable VIRGIL ., KELSEY Admitting Unavailable VIRGIL ., KELSEY Attending Unavailable FAJP, GARCIA H Primary Care Unavailable ZIEBER, DR JESE Franco Consulting Unavailable VIRGIL ., KELSEY Consulting Unavailable REQUEST, DR NONE LISTED Consulting Unavaila Maggie Patel Unavailable MICKEY Bailey Attending Provider KaminiLindaAnnetta Unavailable NO FAMILY, PHYSICIAN Primary Care Provider Unava ilable Patience Connors Attending Provider Patience Connors Admitting Unavailable NO FAMILY, PHYSICIAN Primary Care Unavailable Patience Connors Attending Unavailable Annel Bailey Attending Unavailable Annel Bailey Admitting Unavailable NO FAMILY, PHYSICIAN Primary Care Unavailable NO FAMILY, PHYSICIAN Primary Care Provider Unava ilable Patience Connors Attending Provider NIKKI CONNORSY Attending Unavailable NIKKI CONNORSY Attending Unavailable KELSEY HERMAN Attending Unavailable PATIENCE CONNORS Attending Unavailable Shaikh Rizzo MD Primary Care Provider Medications Current Medications Medication Drug Class(es) Dates [...] 1.5 mg/ml oral solution (2 sources) Uncompetitive R-ojsblr-Y-aspartat e Receptor Antagonist, Sigma-1 Agonist Start: 05-23-2019 Popejoy DM 7.5-7.5 MG/5ML 10 ml Orally every [...] venlafaxine 37.5 mg extended release oral capsule (7 sources) Serotonin and Norepinephrine Reuptake Inhibitor Start: 08-30-2023 End: 10-25-2024 take 1 capsule by mouth every twenty-four hours Venlafaxine 37.5 mg capsule,extended release 24hr Discontinued MG PO August 30, 2023 12:00am October 25, 2024 9:43am Start: 08-30-2023 Venlafaxine Ac tive MG PO August 30, 2023 12:00am Start: 08-08-2023 End: 11-26-2024 take 1 capsule by mouth once daily venlafaxine XR (Effexor XR) 37.5 MG 24 hr capsule Indications: Anxiety, generalized (CMS/HCC) Take 1 capsule (37.5 mg) by mouth Daily Do not crush or chew. 30 capsule 11 08/08/2023 11/26/2024 Discontinued Problems Active Problems Problem Classification Problem Date Documented Date Episodic/Chronic Contraceptive and procreative management (10 sources) Surveillance of contraception; Translations: [Encounter for surveillance of other contraceptives] Resolved: 07-02-2020 Episodic Headache; including migraine (7 sources) Migraine without aura, not refractory ; Translations: [Migraine without aura, without mention of intractable migraine without mention of status migrainosus] Onset: 05-16-2018 Resolved: 07-01-2020 11-22-2022 Chronic Immunizations and screening for infectious disease (6 sources) Encounter for screening for infections with a predominantly sexual mode of transmission; Translations: [Encounter for screening for other viral diseases] Resolved: 07-01-2020 Episodic Menstrual disorders (8 sources) Irregular menstruation, unspecified; Translations: [Missed period] [...] perineal pain] Resolved: 07-01-2020 Episodic Cardiac dysrhythmias (7 sources) Tachycardia; Translations: [Tachycardia, unspecified] Onset: 11-22-2022 11-22-2022 Episodic Genitourinary symptoms and ill-defined conditions (2 sources) Dysuria; Translations: [Dysuria] Onset: 11-16-2022 Episodic Other nutritional; endocrine; and metabolic disorders (1 source) Body mass index (BMI) 26.0-26.9, adult; Translations: [Body mass index (BMI) 26.0-26.9, adult] Resolved: 07-01-2020 Episodic Other nutritional; endocrine; and metabolic disorders (2 sources) Underweight; Translations: [Underweight] Resolved: 01-14-2021 Episodic Other nutritional; endocrine; and metabolic disorders (1 source) Body mass index 25-29 - overweight; Translations: [Body mass index (BMI) 26.0-26.9, adult] Resolved: 07-01-2020 Episodic Other nutritional; endocrine; and metabolic disorders (5 sources) H/O: endocrine disorder; Translations: [Personal history of other endocrine, nutritional and metabolic disease] Onset: 12-03-2014 12-20-2022 Episodic Other skin disorders (2 sources) Hair and hair follicle diseases; Translations: [Other specified disease of hair and hair follicles] Onset: 01-23-2019 Resolved: 07-01-2020 Episodic Other skin disorders (2 sources) Acne; Translations: [Acne, unspecified] Onset: 05-16-2018 Resolved: 07-01-2020 Episodic Other skin disorders (6 sources) Folliculitis; Translations: [Follicular disorder, unspecified] Onset: [...] Test Name Value Interpretation Reference Range Facility TB PREG QUANT HCGon 025 HCG QUANTITATIVE <1 mIU/mL [facility] Comment on above: 5-50 0.2-1 WEEK 50-500 1-2 WEEKS 100-5,000 2-3 WEEKS 500-10,000 3-4 WEEKS 1,000-50,000 4-5 WEEKS 10,000-100,000 5-6 WEEKS 15,000-200,000 6-8 WEEKS 10,000-100,000 2-3 MONTHS [facility] e TB PREG QUANT HCGon 025 HCG QUANTITATIVE 54 mIU/mL [facility] Comment on above: 5-50 0.2-1 WEEK 50-500 1-2 WEEKS 100-5,000 2-3 WEEKS 500-10,000 3-4 WEEKS 1,000-50,000 4-5 WEEKS 10,000-100,000 5-6 WEEKS 15,000-200,000 6-8 WEEKS 10,000-100,000 2-3 MONTHS [facility] No Panel InformationOrdered By: Maggie Braden on 10-25-2024 Quick Strep (POC) [facility] Johan 07-11-2023 L Specimen: [id number] Received: 07/12/23 Status: NYASIA Chavez Num: [id number] Spec Type: Surgical Subm Dr: Patience Connors Tissues: A Soft Tissue/Surgical Margin-Other than Tumor,Mass,Lip or Ryanne (TISSUE EPISIOT Procedures: HE, Gross/Micro L4 Age/ Patient Sex Location Account Attending Physician Danelle Baldwin LABELL [id number] Patience Connors SPEC NUM: [id number] RECD: 07/12/23 STATUS: NYASIA CHAVEZ NUM: [id number] KIMBERLYN: 07/11/23- SUBM DR: Patience Connors ENTERED: 07/12/23 [facility] DR: Bud,Lab SPEC TYPE: Surgical DEPT: MELIDA LONGORIA ORDERED: [...] in one cassette labeled A1. CPT Codes 71119 Specimen: [id number] Received: 07/12/23-1328 Status: NYASIA Chavez Num: [id number] Spec Type: Surgical Subm Dr: Patience Connors Tissues: A Soft Tissue/Surgical Margin-Other than Tumor,Mass,Lip or Ryanne (TISSUE EPISIOT Procedures: Aga SARKAR/Renny L4 Patient: Danelle Baldwin [id number] (Continued) Signed (signature on file) Cedric Stern MD 07/14/23 1144 [facility] Urinalysis - AUTOMATEDon Appearance (U) clear And[employer] Other Bilirubin Ql (U) Negative [employer] Other Color (U) yellow [employer] Other Glucose Ql (U) Negative Andela Other Hemoglobin Ql (U) trace intact [employer] Other Ketones Ql (U) Negative [employer] Other Leukocyte esterase Test strip Ql (U) small [employer] Other Nitrite Ql (U) Negative [employer] Other pH (U) 6.5 [pH] [employer] Other Protein Ql (U) Negative [employer] Other Specific gravity (U) [Rel density] 1.010 [employer] Other Urobilinogen (U) [Mass/Vol] 0.2 mg/dL [employer] Other Urinalysis - AUTOMATED No rt [employer] Other Urine Cultureon 11-16-2022 Bacteria identified Cx Nom (U) <9,000 colonies/ml mixed bacterial skin contaminants 2 Days PERFORMED BY: [place] [address] PATHOLOGIST MARINE STEAMFITTER EZEKIEL TERRELL M.D. [facility] Comment on above: Performed By: #### C UU #### [address] US PREG ANATOMY SINGLEon US PREG [...] JESE MENDEZ Date: 2022-10-24 15:56 Normal [facility] Pap IG, rfx Aptima HPV, rfx 16/18,45on 10-10-2022 . . Normal [facility] Comment on above: Result Comment: Perf ormed at: WB Performed By: #### P APHR2A #### [facility] [address] [address] [address] Jason Cristina DIAGNOSIS: Comment Normal [facility] Comment on above: Result Comment: NEGA TIVE FOR INTRAEPITHELIAL LESION OR MALIGNANCY. FUNGAL ORGANISMS MORPHOLOGICALLY CONSISTENT WITH JENNIFER SPECIES ARE PRESENT. CELLULAR CHANGES ASSOCIATED WITH INFLAMMATION ARE PRESENT. Performed at: WB Performed By: #### P APHR2A #### [facility] [address] [address] [address] Jason Cristina HPV Aptima Negative Normal Negative [facility] Comment on above: Result Comment: This nucleic acid amplification test detects fourteen high-risk HPV types (16,18,31,33,35,39,45,51,52,56,58,59,66,68) without differentiation. Performed at: =G Performed By: #### P APHR2A #### [facility] [address] [address] [address] Jason Cristina HPV Genotype Reflex Comment Normal [facility] Comment on above: Result Comment: Crit eria not met, HPV Genotype not performed. Performed at: WB Performed By: #### P APHR2A #### [facility] [address] [place] [address] Dr. Jason Cristina Methodology: Comment Normal [facility] Comment on above: Result Comment: This liquid based ThinPrep(R) pap test was screened with the use of an image guided system. Performed at: WB Performed By: #### P APHR2A #### [facility] [address] [place] [address] Dr. Jason Cristina Note: Comment Normal [facility] Comment on above: Result Comment: The [...] WB Performed By: #### P APHR2A #### [facility] [address] [place] [address] Dr. Jason Cristina Performed by: Comment Normal [facility] Comment on above: Result Comment: Jazmin Forbes, Mercury Cell Cleaner (ASCP) Performed at: WB Performed By: #### P APHR2A #### [facility] [address] [place] [address] Dr. Jason Cristina Specimen adequacy: Comment Normal [facility] Comment on above: Result Comment: Sati sfactory for evaluation. Endocervical and/or squamous metaplastic cells (endocervical component) are present. Performed at: WB Performed By: #### P APHR2A #### [facility] [address] [place] [address] Dr. Jason Cristina CBC W MANUAL DIFFon 09-11-19 23 ATYPICAL LYMPH # 0.10 103/ul [facility] Comment on above: Performed By: #### C ELA #### [facility] [address] [place] [address] Dr. Jason Cristina ATYPICAL LYMPH % 1 % [facility] Comment on above: Performed By: #### C ELA #### [facility] [address] [place] [address] Dr. Jason Cristina BAND # 0.0 103/ul Normal 0.0-0.3 [facility] Comment on above: Performed By: #### C BCMAN #### [facility] [address] [place] [address] Dr. Jason Cristina BAND % 0 % Normal 0-5 [facility] Comment on above: Performed By: #### C BCAJ #### [facility] [address] [place] [address] Dr. Jason Cristina BASOM # 0.00 103/ul Normal 0.00-0.10 [facility] Comment on above: Performed By: #### C BCAJ #### [facility] [address] [place] [address] Dr. Jason Cristina BASOM % 0.0 % Critically low 0.2-2.0 [facility] Comment on above: Performed By: #### C ELA #### [facility] [address] [place] [address] Dr. Jason Cristina BLAST # Normal [facility] Comment on above: Performed By: #### C ELA #### [facility] [address] [place] [address] Dr. Jason Cristina BLAST % Normal [facility] Comment on above: Performed By: #### C ELA #### [facility] [address] [place] [address] Dr. Jason Cristina CORRECTED WBC Normal 4.0-11.[address] [facility] Comment on above: Performed By: #### C BCAJ #### [facility] [address] [place] [address] Dr. Jason Cristina EOS # 0.00 103/ul Normal 0.00-0.70 [facility] Comment on above: Performed By: #### C BCAJ #### [facility] [address] [place] [address] Dr. Jason Cristina EOS% 0.0 % Critically low 0.9-7.0 [facility] Comment on above: Performed By: #### C ELA #### [facility] [address] [place] [address] Dr. Jason Cristina HCT 37.4 % Normal 36.0-48.0 [facility] Comment on above: Performed By: #### C ELA #### [facility] [address] [place] [address] Dr. Jason Cristina HGB 13.3 g/dl Normal 12.0-16.0 [facility] Comment on above: Performed By: #### C ELA #### [facility] [address] [address] [address] Jason Cristina LYMPHM # 0.39 103/ul Critically low 1.20-3.[address] [facility] Comment on above: Performed By: #### C ELA #### [facility] [address] [place] [address] Dr. Jason Cristina LYMPHM% 4.0 % Critically low 20.5-60.0 [facility] Comment on above: Performed By: #### C ELA #### [facility] [address] [place] [address] Dr. Jason Cristina MCH 31.4 pg Normal 26.7-34.0 [facility] Comment on above: Performed By: #### C ELA #### [facility] [address] [place] [address] Dr. Jason Cristina MCHC 35.6 g/dl Critically high 29.9-35.[address] [facility] Comment on above: Performed By: #### C ELA #### [facility] [address] [place] [address] Dr. Jason Cristina MCV 88.4 fL Normal 81.0-99.0 [facility] Comment on above: Performed By: #### C ELA #### [facility] [address] [place] [address] Dr. Jason Cristina METAMYELOCYTE # Normal [facility] Comment on above: Performed By: #### C ELA #### [facility] [address] [place] [address] Dr. Jason Cristina METAMYELOCYTE % Normal [facility] Comment on above: Performed By: #### C ELA #### [facility] [address] [address] [address] Jason Cristina MONOM# 0.19 103/ul Critically low 0.30-0.[address] [facility] Comment on above: Performed By: #### C ELA #### [facility] [address] [address] [address] Jason Cristina MONOM% 2.0 % Normal 1.7-12.0 [facility] Comment on above: Performed By: #### C ELA #### [facility] [address] [place] [address] Dr. Jason Cristina MPV 10.0 fL Normal 9.5-13.5 [facility] Comment on above: Performed By: #### C ELA #### [facility] [address] [place] [address] Dr. Jason Cristina MYELOCYTE # Normal [facility] Comment on above: Performed By: #### Gloria MAHMOOD #### [facility] [address] [place] [address] Dr. Jason Cristina MYELOCYTE % Normal [facility] Comment on above: Performed By: #### Gloria MAHMOOD #### [facility] [address] [place] [address] Dr. Jason Cristina NRBC Normal [facility] Comment on above: Performed By: #### Gloria MAHMOOD #### [facility] [address] [place] [address] Dr. Jason Cristina PLT 202 103/ul Normal 150-450 [facility] Comment on above: Performed By: #### C ELA #### [facility] [address] [place] [address] Dr. Jason Cristina RBC 4.23 106/ul Normal 4.20-5.40 [facility] Comment on above: Performed By: #### C ELA #### [facility] [address] [place] [address] Dr. Jason Cristina RDW 12.5 % Normal 11.0-15.0 [facility] Comment on above: Performed By: #### C ELA #### [facility] [address] [place] [address] Dr. Jason Cristina SEG # 9.02 103/ul Critically high 1.40-6.50 [facility] Comment on above: Performed By: #### C ELA #### [facility] [address] [place] [address] Dr. Jason Cristina SEG % 93.0 % Critically high 43.0-75.[address] [facility] Comment on above: Performed By: #### C ELA #### [facility] [address] [place] [address] Dr. Jason Cristina WBC 9.7 103/ul Normal 4.0-11.0 [facility] Comment on above: Performed By: #### C ELA #### [facility] [address] [place] [address] Dr. Jason Cristina ER URINE PROFILEon 3 Bilirubin Ql (U) Negative Normal NEGATIVE [facility] Comment on above: Performed By: #### P REGU, ERUR #### [facility] [address] [place] [address] Dr. Jason Cristina Clarity (U) CLEAR Normal CLEAR [facility] Comment on above: Performed By: #### P REGU, ERUR #### [facility] [address] [place] [address] Dr. Jason Cristina Color (U) YELLOW Normal YELLOW [facility] Comment on above: Performed By: #### P REGU, ERUR #### [facility] [address] [place] [address] Dr. Jason MILNER A micrscopic examination will be performed if indicated. Normal [facility] Comment on above: Performed By: #### P REGU, ERUR #### [facility] [address] [place] [address] Dr. Jason Cristina Glucose Ql (U) Negative Normal NEGATIVE The [facility] Comment on above: Performed By: #### P REGU, ERUR #### [facility] [address] [place] [address] Dr. Jason Cristina Hemoglobin Ql (U) Negative Normal NEGATIVE [facility] Comment on above: Performed By: #### P REGU, ERUR #### [facility] [address] [address] [address] Jason Cristina Ketones Ql (U) 15 mg/dl Abnormal NEGATIVE The [facility] Comment on above: Performed By: #### P REGU, ERUR #### [facility] [address] [place] [address] Dr. Jason Cristina LEUKOCYTES Negative Normal NEGATIVE [facility] Comment on above: Performed By: #### P REGU, ERUR #### [facility] [address] [address] [address] Jason Cristina Nitrite Ql (U) Negative Normal NEGATIVE The [facility] Comment on above: Performed By: #### P REGU, ERUR #### [facility] [address] [place] [address] Dr. Jason Cristina pH (U) 6.0 [pH] Normal 5-9 [facility] Comment on above: Performed By: #### P REGU, ERUR #### [facility] [address] [place] [address] Dr. Jason Cristina SPEC GRAVITY >=1.030 Abnormal 1.005-<=1.02 5 [facility] Comment on above: Performed By: #### P REGU, ERUR #### [facility] [address] [place] [address] Dr. Jason Cristina UA PROTEIN TRACE Normal NEGATIVE/ TRACE [facility] Comment on above: Performed By: #### P REGU, ERUR #### [facility] [address] [place] [address] Dr. Jason Cristina UR MICRO IND NOT INDICATED Normal [facility] Comment on above: Performed By: #### P REGU, ERUR #### [facility] [address] [place] [address] Dr. Jason Cristina Urobilinogen Qn (U) 1.0 {Josephine'U}/dL Normal 0.2 - 1. 0 [facility] Comment on above: Performed By: #### P REGU, ERUR #### [facility] [address] [address] [address] Jason Cristina URon 09-10-2022 , QUAL Positive Abnormal NEGATIVE [facility] Comment on above: Performed By: #### P REGU, ERUR #### [facility] [address] [address] [address] Jason Cristina PROF CHEM 8 (BAS METB)on Anion gap [Moles/Vol] 14.2 mmol/L Normal [facility] Comment on above: Performed By: #### B MP #### [facility] [address] [address] [address] Jason Cristina Calcium [Mass/Vol] 8.6 mg/dL Normal 8.5-10.1 [facility] Comment on above: Performed By: #### B MP #### [facility] [address] [address] [address] Jason Cristina Chloride [Moles/Vol] 100 mmol/L Normal 98-107 [facility] Comment on above: Performed By: #### B MP #### [facility] [address] [address] [address] Jason Cristina CO2 [Moles/Vol] 21.9 mmol/L Normal 21.0-32.0 [facility] Comment on above: Performed By: #### B MP #### [facility] [address] [address] [address] Jason Cristina Creatinine [Mass/Vol] 0.40 mg/dL Critically low 0.55-1.02 [facility] Comment on above: Performed By: #### B MP #### [facility] [id number] Jason Cristina EGFR-AF ANDORRAN >60 Normal >=60 [facility] Comment on above: Performed By: #### B MP #### [facility] [id number] Jason Cristina EGFR-NON AF ANDORRAN >60 Normal >=60 [facility] Comment on above: Performed By: #### B MP #### [facility] [address] [address] [address] Jason Cristina Glucose [Mass/Vol] 107 mg/dL Critically high 74-106 [facility] Comment on above: Performed By: #### B MP #### [facility] [address] [address] [address] Jason Cristina Potassium [Moles/Vol] 3.1 mmol/L Critically low 3.5-5.1 [facility] Comment on above: Performed By: #### B MP #### [facility] [address] [address] [address] Jason Cristina Sodium [Moles/Vol] 133 mmol/L Critically low 136-145 [facility] Comment on above: Performed By: #### B MP #### [facility] [address] [address] [address] Jason Cristina Urea nitrogen [Mass/Vol] 9.0 mg/dL Normal 7.0-18.0 [facility] Comment on above: Performed By: #### B MP #### [facility] [address] [address] [address] Jason Critsina Urea nitrogen/Creatinine [Mass ratio] 22.5 mg/mg Normal [facility] Comment on above: Performed By: #### B MP #### [facility] [address] [address] [address] Jason Cristina US PREG TVon 08-08-2022 [...] by: JESE MENDEZ Date: 2022-08-08 16:36 Normal [facility] Vital Signs Date Time Vital Sign Value Performing Clinician Facility 06-11-2025 14:09-0400 Body mass index (BMI) [Ratio] 31.03 kg/m2 Kelsey LONG Work Phone: [facility] 11-26-2024 14:09-0400 Body weight 82.01 kg Kelsey LONG Work Phone: [facility] 11-26-2024 14:09-0400 Diastolic blood pressure 74 mm[Hg] Kelsey LONG Work Phone: [facility] 11-26-2024 14:09-0400 Systolic blood pressure 120 mm[Hg] Kelsey LONG Work Phone: [facility] 10-25-2024 09:42-0400 Body height 162.56 cm [facility] 10-25-2024 09:42-0400 Body mass index (BMI) [Ratio] 30.7 kg/m2 [facility] 10-25-2024 09:42-0400 Body temperature 99.3 [degF] [facility] 10-25-2024 09:42-0400 Body weight 81.3 kg [facility] 10-25-2024 09:42-0400 Diastolic blood pressure 74 mm[Hg] [facility] 10-25-2024 09:42-0400 Heart rate 110 /min [facility] 10-25-2024 09:42-0400 Respiratory rate 18 /min [facility] 10-25-2024 09:42-0400 SaO2% (BldA) [Mass fraction] 98 % [facility] 10-25-2024 09:42-0400 Systolic blood pressure 113 mm[Hg] [facility] 08-30-2023 09:41-0400 Body height 162.56 cm PHYSICIAN NO [facility] 08-30-2023 09:41-0400 Body mass index (BMI) [Ratio] 31.7 kg/m2 PHYSICIAN NO [facility] 08-30-2023 09:41-0400 Body temperature 98.3 [degF] PHYSICIAN NO [facility] 08-30-2023 09:41-0400 Body weight 83.97 kg PHYSICIAN NO [facility] 08-30-2023 09:41-0400 Heart rate 98 /min PHYSICIAN NO [facility] 08-30-2023 09:41-0400 Respiratory rate 18 /min PHYSICIAN NO [facility] 08-30-2023 09:41-0400 SaO2% (BldA) [Mass fraction] 98 % PHYSICIAN NO [facility] 07-07-2023 10:00-0500 Body height 162.56 cm Annetta Suárez Other [facility] 07-07-2023 10:00-0500 Body mass index (BMI) [Ratio] 32.34 kg/m2 Annetta Kamini Other [employer] [facility] [employer] Other 07-07-2023 10:00-0500 Body temperature 98 [degF] Annetta Kamini Other [employer] Other 07-07-2023 10:00-0500 Body weight 85.46 kg Annetta Kamini Other [employer] Other 07-07-2023 10:00-0500 Body weight 85.45 kg PHYSICIAN NO [facility] 07-07-2023 10:00-0500 Respiratory rate 18 /min Annetta Kamini Other [employer] Other 07-07-2023 10:00-0500 SaO2% (BldA) [Mass fraction] 98 % Annetta Kamini Other [employer] Other 03-29-2023 17:05-0400 Body height 162.56 cm Maggie Braden Other [employer] Other 03-29-2023 17:05-0400 Body mass index (BMI) [Ratio] 31.58 kg/m2 Maggie Braden Other [employer] Other 03-29-2023 17:05-0400 Body temperature 98.4 [degF] Maggie Braden Other [employer] Other 03-29-2023 17:05-0400 Body weight 83.46 kg Maggie Braden Other [employer] Other 03-29-2023 17:05-0400 Diastolic blood pressure 72 mm[Hg] Maggie Braden Other [employer] Other 03-29-2023 17:05-0400 Respiratory rate 18 /min Maggie Braden Other [employer] Other 03-29-2023 17:05-0400 SaO2% (BldA) [Mass fraction] 98 % Maggie Braden Other [employer] Other 03-29-2023 17:05-0400 Systolic blood pressure 128 mm[Hg] Maggie Braden Other [employer] Other 11-16-2022 11:20-0400 Body height 162.56 cm Maggie Braden Other [employer] Other 11-16-2022 11:20-0400 Body mass index (BMI) [Ratio] 32.09 kg/m2 Maggie Braden Other [employer] Other 11-16-2022 11:20-0400 Body temperature 98.8 [degF] Maggie Braden Other [employer] Other 11-16-2022 11:20-0400 Body weight 84.82 kg Maggie Braden Other [employer] Other 11-16-2022 11:20-0400 Respiratory rate 18 /min Maggie Braden Other [employer] Other 11-16-2022 11:20-0400 SaO2% (BldA) [Mass fraction] 99 % Maggie Braden Other [employer] Other Encounters Encounter Date Encounter Type Care Provider Facility Start: 11-26-2024 End: 11-26-2024 Bamboo flowsheet Kelsey LONG Work Phone: [facility] Start: 11-26-2024 End: 11-26-2024 Bamboo flowsheet Kelsey LONG Work Phone: [facility] Start: 11-26-2024 End: 11-26-2024 Patient encounter procedure Kelsey LONG Work Phone: [facility] Work Phone: Start: 11-26-2024 End: 11-26-2024 Periodic preventive med est patient 18-39 yrs Kelsey LONG Work Phone: [facility] Comment on above: Well woman exam with routine gynecological exam Start: 11-05-2024 End: 11-05-2024 Clinisync Result Encounter Patience Waylon DO Work Phone: [facility] Unsolicited Start: 11-05-2024 End: 11-05-2024 Clinisync Result Encounter Patience Waylon DO Work Phone: [facility] Unsolicited Start: 10-27-2024 End: 10-27-2024 Clinisync Result Encounter Patience Waylon DO Work Phone: [facility] Unsolicited Start: 10-27-2024 End: 10-27-2024 Clinisync Result Encounter Patience Waylon DO Work Phone: [facility] Unsolicited Start: 10-25-2024 End: 10-25-2024 ambulatory [facility] Work Phone: Start: 10-25-2024 End: 10-25-2024 Patient encounter procedure [facility] Work Phone: Start: 10-22-2023 End: 10-22-2023 ambulatory PATIENCE WAYLON Not Available Start: 08-30-2023 End: 08-30-2023 ambulatory PHYSICIAN NO [facility] Work Phone: Start: 08-30-2023 End: 08-30-2023 Patient encounter procedure PHYSICIAN NO [facility] [place] Work Phone: Start: 08-08-2023 End: 08-08-2023 ambulatory PATIENCE WAYLON Not Available Start: 07-12-2023 End: 07-12-2023 ambulatory PHYSICIAN NO [facility] Work Phone: Start: 07-12-2023 End: 07-12-2023 Departed Referred PHYSICIAN NO [facility] Start: 07-11-2023 End: 07-11-2023 ambulatory PATIENCE WAYLON Not Available Start: 07-07-2023 End: 07-07-2023 ambulatory Annetta Suárez Other [employer] Other Start: 07-07-2023 Office outpatient vi sit 15 minutes Annetta Suárez [facility] Start: 07-07-2023 End: 07-07-2023 Patient encounter procedure PHYSICIAN NO [facility]- Start: 04-30-2023 End: 04-30-2023 ambulatory KELSEY HERMAN Not Available Start: 03-29-2023 End: 03-29-2023 ambulatory Maggie Braden Other [employer] Other Start: 03-29-2023 Office outpatient vi sit 15 minutes Maggie Braden [facility] Start: 11-16-2022 Office outpatient vi sit 15 minutes Maggie Braden [facility] Start: 11-16-2022 End: 11-16-2022 ambulatory Annel Bailey [employer] Other Start: 11-16-2022 End: 11-16-2022 Departed Referred [facility] Annel Bailey Work Phone: [facility] [place] Work Phone: Start: 10-24-2022 End: 10-25-2022 ambulatory KELSEY HERMAN . Facility:[facility] Start: 10-03-2022 End: 10-03-2022 ambulatory KELSEY HERMAN . Facility:[facility] Start: 09-10-2022 End: 09-11-2022 ambulatory AMILCAR BARROSO . Facility:[facility] Start: 08-07-2022 End: 08-08-[address] PATIENCE CONNORS . Facility:[facility] Start: 07-01-2020 End: 07-01-2020 Encounter for gynecological examination (general) (routine) without abnormal findings Maggie Braden Other [employer] Other Start: 07-01-2020 End: 07-01-2020 Gynecological examination normal Annetta Suárez Other [employer] Other Procedures Date Procedure Procedure Detail Performing Clinician Start: 11-05-2024 [facility]ANT [facility] Core y Waylon DO Work Phone: Start: 10-27-2024 [facility] PREG QUANT [facility]CG Core y Waylon DO Work Phone: Start: 10-25-2024 Quick Strep (POC) Start: 05-16-2018 End: 07-01-2020 General examination of patient Annetta Suárez Other End: 02-20-2018 Contraception care education Maggie Braden Other School admission med ical examination Maggie Braden Other Plan of Treatment Date Care Activity Detail Author Start: 11-26-2024 End: 11-26-2024 Patient encounter procedure [facility] Comment on above: Arrived Start: 11-13-2024 End: 11-13-2024 ambulatory 11/13/2024 2:00 PM EDT Initial [facility] [address] [place] [id number] [facility] Start: 11-13-2024 End: 11-13-2024 Professional / ancillary services management 11/13/2024 1:30 PM EDT Ancillary Procedure [facility] [address] [place] [id number] [facility] Start: 11-16-2022 Bacteria identified in Urine by Culture Urine Culture [facility] Cytology Cervical or vaginal smear or scraping study Pap Smear Pathology and Cytology Routine Well woman exam with routine gynecological exam Ordered: 11/26/2024 [facility] Work Phone: Comment on above: Ordered: 11/26/2024 [facility] Immunizations Immunization Date Immunization Notes Care Provider Dianna mckeon 12-01-2019 tetanus and diphther ia toxoids, adsorbed, preservative free, for adult use (5 Lf of tetanus toxoid and 2 Lf of diphtheria toxoid) Maggie Braden Other [facility] Payers Date Payer Category Payer Medicaid [employer] [place] [id number] 2022 Self-pay 2003 Managed Care HMO (unspecified) AET [id number] 1999 Unknown [id number]. [id number] 1999 Unknown [id number] [id number]. 2.593 1999 Unknown [id number] [id number]. 2.593 1999 Unknown [id number] [id number]. 2.593 1999 Unknown [id number] [id number]. 2.1259 1999 Unknown [id number] [id number]. 2.1259 1999 Unknown [id number] [id number]. 2.1259 1999 Unknown [id number] [id number]. 2.1259 1959 Medicaid [id number] 1959 Private Health Insurance [id number] Unknown [id number] [id number]. 2.531 Unknown [id number] [id number]. 2.531 Social History Date Type Detail Facility Unknown if ever smoked [employer] Other Start: 08-08-2023 End: 11-26-2024 Sex Assigned At [facility] [employer] Other Start: 2000 Sex Assigned At Female F [facility] Start: 12-21-2022 End: 08-30-2023 Tobacco smoking status NHIS Never smoked tobacco (finding) [facility] Start: 12-21-2022 Tobacco use and exposure Smokeless tobacco non-user [facility] Start: 10-22-2023 End: 11-26-2024 Alcoholic beverage intake Lifetime non-drinker (finding) [facility] Start: 08-08-2023 End: 11-26-2024 History of Social function [facility] Start: 2000 Sex assigned at Not on file [facility] Start: 10-25-2024 Sex Female (finding) [facility] History of Present illness Narrative 11-26-2024 MERCEDES Garcia - 11/26/2024 2:00 PM EDT Note Date & Type Note Facility 11-26-2024 History of Presen t illness Narrative Reason for Appointment: Patient ID: Danelle Baldwin is a 23 y.o. female who presents for Well Women Visit Patient presents today for Annual Exam. MEDICATIONS No current outpatient medications ALLERGIES No Known Allergies PROBLEMS Active Ambulatory Problems Diagnosis Date Noted Folliculitis 11/22/2022 Migraine with status migrainosus, not intractable (CMS/HCC) 11/22/2022 Missed period 11/22/2022 Tachycardia 11/22/2022 History of enlargement of pituitary gland 12/03/2014 Resolved Ambulatory Problems Diagnosis Date Noted No Resolved Ambulatory Problems Past Medical History: Diagnosis Date BMI 30.0-30.9,adult Encounter for Nexplanon removal HISTORY PAST MEDICAL HISTORY SOCIAL HISTORY Past Medical History: Diagnosis Date BMI 30.0-30.9,adult Encounter for Nexplanon removal Folliculitis Tachycardia Social History Tobacco Use Smoking status: Never Smokeless tobacco: Never Substance Use Topics Alcohol use: Never Drug use: Never FAMILY HISTORY Family History Problem Relation Name Age of Onset Arthritis Father Breast cancer Other Great Grandmother SURGICAL HISTORY Past Surgical History: Procedure Laterality Date PAP SMEAR 10/03/2022 REVIEW OF SYSTEMS Review of Systems: Review of Systems Constitutional: Negative. HENT: Negative. Eyes: Negative. Respiratory: Negative. Cardiovascular: Negative. Gastrointestinal: Negative. Genitourinary: Negative. Musculoskeletal: Negative. Skin: Negative. Neurological: Negative. All other systems reviewed and are negative. Hematological: Negative. Endocrine: Negative. Allergic/Immunologic: Negative. OBJECTIVE Objective: Physical Exam Constitutional: Appearance: Normal appearance. She is well-developed. Genitourinary: Vulva normal. Right Adnexa: not tender and no mass present. Left Adnexa: not tender and no mass present. No cervical discharge. Breasts: Breasts are soft. Right: Normal. Left: Normal. HENT: Head: Normocephalic. Nose: Nose normal. Mouth/Throat: Mouth: Mucous membranes are moist. Cardiovascular: Rate and Rhythm: Normal rate and regular rhythm. Pulmonary: Effort: Pulmonary effort is normal. Breath sounds: Normal breath sounds. Abdominal: General: Bowel sounds are normal. There is no distension. Palpations: Abdomen is soft. Tenderness: There is no abdominal tenderness. There is no guarding or rebound. Musculoskeletal: General: No swelling. Normal range of motion. Cervical back: Normal range of motion. Right lower leg: No edema. Left lower leg: No edema. Neurological: General: No focal deficit present. Mental Status: She is alert and oriented to person, place, and time. Skin: General: Skin is warm and dry. Psychiatric: Mood and Affect: Mood normal. Behavior: Behavior normal. Vitals and nursing note reviewed. Exam conducted with a towel folder present. Vitals: Estimated body mass index is 31.03 kg/m as calculated from the following: Height as of 10/31/22: 5' 4 . Weight as of this encounter: 180 lb 12.8 oz. BP: 120/74 No LMP recorded. ASSESSMENT & PLAN ICD-10-CM 1. Well woman exam with routine gynecological exam Z01.419 Pap Smear Annual Exam: Patient presents today for an annual exam. Patient states she is doing well and has no complaints. Pap was obtained without difficulty. No orders of the defined types were placed in this encounter. Follow Up: Patient is to return in one year for annual unless needed otherwise. Documented by Vania Lees LPN on behalf of: MERCEDES Garcia documented in this encounter [facility] Evaluation note 07-07-2023 Note Date & Type [...] no improvement in 2 to 3 days. [employer] Other Evaluation note 03-29-2023 Note Date & [...] continue breast-feeding. Follow up with PCP or UNDER TRIMMER if symptoms do not improve. Immediate evaluation in ER for signs/symptoms as discussed. Patient verbalizes understanding and is agreeable with treatment plan Mar, Other Mastitis home care material was printed [employer] Other History general Narrative - Reported 03-13-2023 Note Date & Type Note Facility 03-13-2023 History general N arrative - Reported Type Medical History Acne Surgical History No know Surgical history Hospitalization History vaginal 3 [employer] Other Evaluation note 11-16-2022 Note Date & [...] worsening. Patient verbalized understanding of treatment plan. [employer] Other Evaluation note Note Date & Type Note Facility Evaluation note No assessment information availa jos [facility] Work Phone: Evaluation note Note Date & Type Note Facility Evaluation note Diagnosis Well woman exam with routine gynecological exam Routine gynecological examination documented in this encounter [facility] History general Narrative - Reported Note Date & Type Note Facility History general Narrative - Reported Type Medical History Acne [employer] Other History general Narrative - Reported Note Date & Type Note Facility History general Narrative - Reported Type Medical History Acne Surgical History No Surgical history information [employer] Other Summary Purpose Family History No Family History Records FoundNo Family History Records FoundNo Family History Records Found Advance Directives Advance Directive Response Recorded Date/ Time Advance Directives No November 22 3 6:52am Advance Directive Response Recorded Date/ Time Advance Directives No November 22 7:52am Chief Complaint and Reason for Visit Chief Complaint Admit Date sore throat, swollen glands October 25 9:19am Chief Complaint Poss Mastitis L92.9 cough, runny nose, congestion Additional Source Comments INFORMATION SOURCE (unrecogn ized section and content) DATE CREATED AUTHOR 10/29/2022 [facility] DATE CREATED AUTHOR AUTHOR'S ORGANIZ ATION 08/07/2023 [facility] DATE CREATED AUTHOR AUTHOR'S ORGANIZ ATION 10/23/2023 [facility] EPIC REASON FOR VISIT (unrecogniz ed section and content) Reason Comments Well Women Visit Care Teams (unrecognized sec tion and content) [...] 30, 2023 End: August 30, 2023 Maggie Braedn APRN Attending Provider Active Start: August 30, 2023 End: August 30, 2023 Scrap Collector Relationship Specialty Start Date End Date Shaikh Rizzo MD [address] [place] [address] PCP - General Internal Medicine 07/11/23 Team Status: Inactive Member Role Status Dates PHYSICIAN NO FAMILY Primary Care Provider Active Start: October 25, 2024 End: October 25, 2024 Maggie Braden APRN Attending Provider Active Start: October 25, 2024 End: October 25, 2024 Scrap Collector Relationship Specialty Start Date End Date Shaikh Rizzo MD [address] [place] [address] PCP - General Internal Medicine 07/11/23 Scrap Collector Relationship Specialty Start Date End Date Shaikh Rizzo MD [address] [place] [address] PCP - General Internal Medicine 07/11/23 Goals (unrecognized section and content) Goals may [...] BE BASED ON THE PRIMARY CLINICAL RECORDS. [employer] provides no warranty or guarantee of the accuracy or completeness of information in this document.
[2024-11-29 08:08] LABS: Age Gdln ACOG Testing Note (.); IGP, rfx Aptima HPV ASCU Note (.)
== END 2024-11-26 20:01 | disposition home or self-care (01) ==
LOC: LAB 20:00
PROVIDERS: Visit Provider Physician Assistant
DX: Z01.419 Encounter for gynecological examination (general) (routine) without abnormal findings (principal)
CPT/HCPCS: 88175

== ENCOUNTER 2025-02-02 13:33 | Outpatient (RCR) | payer OTHER, MEDICAID, SELFPAY | END 2025-02-14 23:59 | disposition home or self-care (01) | LOC: LAB 13:33 | PROVIDERS: Visit Provider Obstetrics & Gynecology | DX: Z32.01 Encounter for pregnancy test, result positive (principal) | CPT/HCPCS: 36415; 84144; 84702 ==

== ENCOUNTER 2025-04-29 14:55 | Outpatient (OUT) | payer OTHER, MEDICAID, SELFPAY ==
--- OUTSIDE RECORDS SUMMARY | 2025-04-29 13:50 | XMS_ITS | Encounter Summary ---
Author Organization [facility] Address [address] [place] [address] Care Team Providers Care Corn Chip Maker Name Role Phone Shaikh UCHE Rizzo Primary Care Provider [phone] Reason for Visit * ReasonCommentsRoutine Visit Encounter Details DateTypeDepartmentCare Team (Latest Contact Info)Tktlymoszrl23/12/2025 1:50 PM ESTRoutine [facility] [address] [address] Kelsey Ruiz PA [address] [place], [place] [id number] Second trimester ([facility]); 17 weeks gestation of ([facility]); Screening, , for anatomic survey ([facility]); Missed menses; , unspecified gestational age ([facility]); Encounter for supervision of normal first in first trimester ([facility]) Social History Tobacco UseTypesPacks/DayYears UsedDateSmoking Tobacco: NeverSmokeless Tobacco: Never Tobacco Cessation:Counseling Given: Not Answered Alcohol UseStandard Drinks/WeekCommentsNot Currently0 (1 standard drink = 0.6 oz pure alcohol)special occasions/social gatheringsEstimated Date of VsoodswcJbugjzdoQzf34/19/2026Based on last menstrual period of 12/28/2024 (Exact Date)Sex and Gender InformationValueDate RecordedSex Assigned at BirthNot on fileLegal AjhJmgzxf55/15/2023 7:01 PM EDTGender IdentityNot on fileSexual OrientationNot on filedocumented as of this encounter Last Filed Vital Signs Vital SignReadingTime TakenCommentsBlood Fkctxiyw519/7004/29/2025 2:12 PM EST Pulse--Temperature--Respiratory Rate--Oxygen Saturation--Inhaled Oxygen Concentration--Lfpsng74.2 kg (190 lb)04/29/2025 2:12 PM ESTHeight--Body Mass Index32.61010/31/2022 12:00 PM EDTdocumented in this encounter Progress Notes * MERCEDES Garcia - 04/29/2025 1:50 PM EST Reason for Appointment: Patient ID: Danelle Baldwin is a 24 y.o. female who presents for Routine Visit Patient presents today for Return OB appointment.and cultures MEDICATIONS Current Outpatient Medications Medication Instructions MV-Min-Fe Fum-FA-DHA ( 1 PO) Take by mouth ALLERGIES No Known Allergies PROBLEMS Active Ambulatory Problems Diagnosis Date Noted Folliculitis 11/22/2022 Migraine with status migrainosus, not intractable 11/22/2022 Missed period 11/22/2022 Tachycardia 11/22/2022 History [...] tobacco: Never Substance Use Topics Alcohol use: Not Currently Comment: special occasions/social gatherings Drug use: Never FAMILY HISTORY Family History Problem Relation Name Age of Onset Arthritis Father Slava Hypertension Father Slava Breast cancer Other Great Grandmother Rheum arthritis Maternal Grandfather Sim Stroke Paternal Grandfather Luke Rheum arthritis Paternal Grandmother Herlinda Cancer Paternal Grandmother Herlinda Migraines Paternal Grandmother Herlinda SURGICAL HISTORY Past Surgical History: Procedure Laterality Date PAP SMEAR 10/03/2022 REVIEW OF SYSTEMS Review of Systems: Review of Systems Constitutional: Negative. HENT: Negative. Eyes: Negative. Respiratory: Negative. Cardiovascular: Negative. Gastrointestinal: Negative. Genitourinary: Negative. Musculoskeletal: Negative. Skin: Negative. Neurological: Negative. All other systems reviewed and are negative. Hematological: Negative. Endocrine: Negative. Allergic/Immunologic: Negative. OBJECTIVE Objective: OBGyn Exam Vitals: Estimated body mass index is 31.93 kg/m?? as calculated from the following: Height as of 10/31/22: 5' 4 . Weight as of 04/01/25: 186 lb. BP: Patient's last menstrual period was 12/28/2024 (exact date). ASSESSMENT & PLAN ICD-10-CM 1. Second trimester ([facility]) Z34.92 SURESWAB(R) ADVANCED VAGINITIS PLUS, TMA CHLAMYDIA TRACHOMATIS (GENITO/STI) Neisseria gonorrhea DNA probe, direct Alpha fetoprotein, maternal Alpha fetoprotein, maternal 2. 17 weeks gestation of ([facility]) Z3A.17 POCT urinalysis dipstick manually resulted 3. Screening, , for anatomic survey ([facility]) Z36.89 US OB 14+ weeks anatomy scan US OB 14+ weeks anatomy scan Assessment/Plan Return OB: Patient presents today for a routine obstetrics appointment. Patient is currently 17w3d . Patient states she is doing well but has complaints of being tired due to current . Patient has verbalizes frequent movement. labor precautions was discussed/given and patient was instructed to perform kick counts three times a day. Orders Placed This Encounter Procedures US OB 14+ weeks anatomy scan CHLAMYDIA TRACHOMATIS (GENITO/STI) Neisseria gonorrhea DNA probe, direct Alpha fetoprotein, maternal POCT urinalysis dipstick manually resulted Follow Up: Patient is to return to office in 4 weeks for routine OB appointment. Documented by Ching Leyva CST on behalf of: MERCEDES Garcia documented in this encounter Plan of Treatment DateTypeDepartmentCare Team (Latest Contact Info)Hfoavkjveez17/08/2025 1:00 PM ESTAncillary [place] [address] 05/25/2025 2:10 PM ESTRoutine [facility] [address] [place] [address] Davon Connors, [address] [place] [address] NameTypePriorityAssociated DiagnosesOrder ScheduleSURESWAB(R) ADVANCED VAGINITIS PLUS, TMAPathology and CytologyRoutine Second trimester ([facility] Ordered: 04/29/2025HLAMYDIA TRACHOMATIS (GENITO/STI)LabRoutine Second trimester ([facility]) Ordered: 04/29/2025Neisseria gonorrhea DNA probe, directLabRoutine Second trimester ([facility]) Ordered: 04/29/2025lpha fetoprotein, maternalLabRoutine Second trimester ([facility]) Expected: 04/29/2025 (Approximate), Expires: 06/29/2025US OB 14+ weeks anatomy scanImagingRoutine Screening, , for anatomic survey ([facility]) Expected: 04/29/2025, Expires: 07/30/2025Type and screenLabRoutine Missed menses , unspecified gestational age ([facility]) Expected: 04/29/2025 (Approximate), Expires: 04/29/2026BO/RhLabRoutine Missed menses , unspecified gestational age ([facility]) Expected: 04/29/2025 (Approximate), Expires: 04/29/2026BC and differentialLab Routine Missed menses , unspecified gestational age ([facility]) Ordered: 04/29/2025Hemoglobin [id number] Missed menses , unspecified gestational age ([facility]) Ordered: 04/29/2025RPRLabRoutine Missed menses , unspecified gestational age ([facility]) Ordered: 04/29/2025Rubella antibody, IgGLabRoutine Missed menses , unspecified gestational age ([facility]) Ordered: 04/29/2025Hepatitis B surface antigenLabRoutine Missed menses , unspecified gestational age ([facility]) Ordered: 04/29/2025Hepatitis C antibodyLabRoutine Missed menses , unspecified gestational age ([facility]) Ordered: 04/29/2025HIV-1 and HIV-2 antibodiesLabRoutine Missed menses , unspecified gestational age ([facility]) Ordered: 04/29/2025Urine cultureMicrobiologyRoutine Missed menses Ordered: 04/29/2025Rapid drug screen, urineLabRoutine , unspecified gestational age ([facility]) Encounter for supervision of normal first in first trimester ([facility]) Expected: 04/29/2025 (Approximate), Expires: 04/29/2026documented as of this encounter Procedures Procedure NamePriorityDate/TimeAssociated DiagnosisCommentsPOCT URINALYSIS WRSOTGQAOwxygnu85/12/2025 2:25 PM EST 17 weeks gestation of ([facility]) documented in this encounter Results * (ABNORMAL) POCT urinalysis dipstick manually resulted (04/29/2025 2:25 PM EST) ComponentValueRef RangeTest MethodAnalysis TimePerformed AtPathologist SignatureColor, UAYellowClarity, UAClearGlucose, UANegativeNegative - 2000(110) ++++ mg/dLBilirubin, UANegativeNegative - 4(70) +++ mg/dLKetones, UA PositiveNegative - 160(16) ++++ mg/dLSpec Grav, UA1.0101 - 1.03Blood, UA NegativeNegative - 50 Héctor/mcLpH, UA6.55 - 9Protein, UANegativeNegative - 2000(20) ++++ mg/dLUrobilinogen, UA1.00.2 - 12 mg/dLLeukocytes, UANegative Negative - 500+++ Macho/mcLNitrite, UANegativeNegative - PositiveSpecimen (Source)Anatomical Location / LateralityCollection Method / VolumeCollection TimeReceived JczyEphxa86/12/2025 2:25 PM EST Narrative Authorizing ProviderResult TypeResult StatusGroton Community Hospital OF CARE TEST ENTER/EDIT ORDERABLESFinal Result documented in this encounter Visit Diagnoses Diagnosis Second trimester ([facility]) state, incidental 17 weeks gestation of ([facility]) Screening, , for anatomic survey ([facility]) Encounter for anatomic survey Missed menses , unspecified gestational age ([facility]) Encounter for supervision of normal first in first trimester ([facility]) documented in this encounter Care Teams Team MemberRelationshipSpecialtyStart DateEnd Date Shaikh Rizzo MD PCP - GeneralInternal Medicine07/11/23documented as of this encounter
--- OUTSIDE RECORDS SUMMARY | 2025-04-29 15:00 | XMS_ITS | Clinical Summary ---
Author Organization [facility] Address [address] [place] [address] Care Team Providers Care Supervisor Agency Appointments Name Role Phone Shaikh UCHE Rizzo Primary Care Provider [phone] Allergies No known active allergies Medications MedicationSigDispense QuantityRefillsLast FilledStart DateEnd DateStatus MV-Min-Fe Fum-FA-DHA ( 1 PO) Take by mouthActive Active Problems ProblemNoted DateDiagnosed MurkJjzwnyeapgme65/07/2023Migraine with status migrainosus, not wuvbdzyehgg22/07/2023Missed pakkqp7211/22/2022Tachycardia 11/22/2022History of enlargement of pituitary gland12/03/2014Estimated Date of SffxfvrpVhmchrgpNhm71/19/2026Based on last menstrual period of 12/28/2024 (Exact Date) Encounters DateTypeDepartmentCare YnhlDkbmbbuimzz14/12/2025 1:50 PM ESTRoutine [facility] [address] [place] [address] [place] [address] Kelsey Ruiz PA Second trimester ([facility]); 17 weeks gestation of ([facility]); Screening, , for anatomic survey ([facility]); Missed menses; , unspecified gestational age ([facility]); Encounter for supervision of normal first in first trimester ([facility]) 04/29/2025amboo flowsheet [facility] [address] [place] [address] Kelsey Ruiz PA 04/28/20254095Drlgwn87/15/2025 2:50 PM EDTRoutine [facility] [address] [place] [address] Davon Connors, DO Second trimester ([facility]); 13 weeks gestation of ([facility])04/01/2025amboo flowsheet [facility] [address] [place] [address] Davon Connors, 03/25/20255314Cpslyg94/11/2025 2:30 PM EDTInitial [facility] [address] [facility] [place] [address] [place]: 8w4d02/26/2025 2:00 PM EDTAncillary Procedure [facility] [address] [place] [address] Missed menses; Positive urine test ([facility])02/23/2025Telephone [facility] [address] [place] [address] Salima Garcia LPN 02/19/20255747Tlbpec71/27/2025Clinisync Result Encounter [facility] External Department Unsolicited Davon Connors, DO 5Clinisync Result Encounter [facility] External Department Unsolicited Davon Connors, DO 5Clinisync Result Encounter NOMS External Department Unsolicited Davon Connors, DO 5Clinisync Result Encounter [facility] External Department Unsolicited Davon Connors, DO 01/30/2025Telephone [facility] [address] [place] [address] Salima Garcia LPN from Last 3 Months Family History Medical HistoryRelationNameCommentsArthritisFatherNicholasHypertensionFather NicholasRheum arthritisMaternal GrandfatherMichaelBreast cancerOtherGreat GrandmotherStrokePaternal GrandfatherJerryCancerPaternal GrandmotherPaula MigrainesPaternal GrandmotherPaulaRheum arthritisPaternal GrandmotherPaula RelationNameStatusCommentsFatherNicholasAliveMaternal GrandfatherMichaelAlive MotherAliveOtherGreat GrandmotherPaternal GrandfatherJerryAlivePaternal GrandmotherPaulaAlive Social History Tobacco UseTypesPacks/DayYears UsedDateSmoking Tobacco: NeverSmokeless Tobacco: Never Tobacco Cessation:Counseling Given: Not Answered Alcohol UseStandard Drinks/WeekCommentsNot Currently0 (1 standard drink = 0.6 oz pure alcohol)special occasions/social gatheringsEstimated Date of OehtdaefFffjtcoqGbm87/19/2026ased on last menstrual period of 12/28/2024 (Exact Date)Sex and Gender InformationValueDate RecordedSex Assigned at BirthNot on fileLegal ToxInlgsj51/15/2023 7:01 PM EDTGender IdentityNot on fileSexual OrientationNot on file Last Filed Vital Signs Vital SignReadingTime TakenCommentsBlood Czvexgla623/7004/29/2025 2:12 PM EST Pulse--Temperature--Respiratory Rate--Oxygen Saturation--Inhaled Oxygen Concentration--Bafbua76.2 kg (190 lb)04/29/2025 2:12 PM HUUOdnhlf560.6 cm (5' 4 )10/31/2022 12:00 PM EDTBody Mass Index32.61010/31/2022 12:00 PM EDT Plan of Treatment DateTypeDepartmentCare Team (Latest Contact Info)Mngmjuadgvj31/08/2025 1:00 PM ESTAncillary Procedure [facility] [address] [facility] [place] [phone] 05/25/2025 2:10 PM ESTRoutine [facility] [address] [facility] [place] [address] Davon Connors DO [address] [place] [address] [place] [address] Procedures Procedure NamePriorityDate/TimeAssociated DiagnosisCommentsPOCT URINALYSIS SJQUUPSWVfiwdba31/12/2025 2:25 PM EST 17 weeks gestation of ([facility]) POCT URINALYSIS QTUDADRIQanlmly96/15/2025 3:18 PM EDT Second trimester ([facility]) POCT URINALYSIS MUKZBCWXFmqxeud74/11/2025 4:03 PM EDT Missed menses POCT , OAWRMHzreinm37/11/2025 4:03 PM EDT Missed menses US OB DGXLXKCGUOGTGsswvfr80/11/2025 2:53 PM EDT Missed menses Positive urine test ([facility]) [facility] PREG QUANT LRVLuuugzf82/27/2025 4:07 PM EDT [facility] PREG QUANT XWUIhdevts07/22/2025 3:00 PM EDT [facility] PREG QUANT YWQXuxwcdo83/20/2025 1:48 PM EDT ALL DPLWUIXZCVUANdfxwkw96/18/2025 1:49 PM EDT [facility] PREG QUANT RIQPtizzlx34/18/2025 1:49 PM EDT from Last 3 Months Results * (ABNORMAL) POCT urinalysis dipstick manually resulted (04/29/2025 2:25 PM EST) Only the most recent of3 resultswithin the time period is included. ComponentValueRef RangeTest MethodAnalysis TimePerformed AtPathologist Signature Color, UAYellowClarity, UAClearGlucose, UANegativeNegative - 2000(110) ++++ mg/dLBilirubin, UANegativeNegative - 4(70) +++ mg/dLKetones, UAPositiveNegative - 160(16) ++++ mg/dLSpec Grav, UA1.0101 - 1.03Blood, UANegativeNegative - 50 Héctor/mcLpH, UA6.55 - 9Protein, UANegativeNegative - 2000(20) ++++ mg/dL Urobilinogen, UA1.00.2 - 12 mg/dLLeukocytes, UANegativeNegative - 500+++ Macho/mcL Nitrite, UANegativeNegative - PositiveSpecimen (Source)Anatomical Location / LateralityCollection Method / VolumeCollection TimeReceived MugoMlqpr73/12/2025 2:25 PM EST Narrative Authorizing ProviderResult TypeResult StatusAmy Joseph PAPOINT OF CARE TEST ENTER/EDIT ORDERABLESFinal Result * (ABNORMAL) POCT , urine manually resulted (02/26/2025 4:03 PM EDT) ComponentValueRef RangeTest MethodAnalysis TimePerformed AtPathologist SignaturePreg Test, UrPositiveNegativeSpecimen (Source)Anatomical Location / LateralityCollection Method / VolumeCollection TimeReceived TimeUrine 02/26/2025 4:03 PM EDT Narrative Authorizing ProviderResult TypeResult StatusCorejessenia Connors DOPOINT OF CARE TEST ENTER/EDIT ORDERABLESFinal Result * US OB transvaginal (02/26/2025 2:53 PM EDT)Anatomical RegionLateralityModality BodyUltrasoundSpecimen (Source)Anatomical Location / LateralityCollection Method / VolumeCollection TimeReceived Time02/26/2025 3:17 PM EDT Impressions 02/26/2025 3:24 PM EDT 1. Findings consistent with a live intrauterine gestation, current sonographic age of 8 weeks and 0 days resulting in an estimated date of delivery of October 08, 2025 2. Subchronic fluid collection, probable resolving hemorrhage. TRANSCRIBED BY: ? ELECTRONICALLY SIGNED BY: Jose Cruz Hopkins MD Narrative 02/26/2025 3:24 PM EDT FINDINGS: A single intrauterine gestational sac is present. ?? A single pole is present. Normal heart rate at 161 beats per minute. ??Yolk sac also is seen. ?? Current sonographic age is 8 weeks and 0 days based on the crown-rump length measurement of 1.7 cm. ??Based on this age, current estimated date of delivery is October 08, 2025. ?? No pelvic fluid or adnexal mass present. ??Cervix is closed, 3.2 cm. Moderate sized subchorionic fluid collection (1.4 x 2.5 x 4.3 cm), closely neighboring the closed internal cervical os. ?? Procedure Note Jose Cruz Hopkins MD - 02/26/2025 FINDINGS: A single intrauterine gestational sac is present. A single pole ispresent. Normal heart rate at 161 beats per minute. Yolk sac alsois seen. Current sonographic age is 8 weeks and 0 days based on thecrown-rump length measurement of 1.7 cm. Based on this age, currentestimated date of delivery is October 08, 2025. No pelvic fluid or adnexalmass present. Cervix is closed, 3.2 cm. Moderate sized subchorionic fluid collection (1.4 x 2.5 x 4.3 cm), closely neighboring the closed internal cervical os. IMPRESSION: 1. Findings consistent with a live intrauterine gestation, currentsonographic age of 8 weeks and 0 days resulting in an estimated date ofdelivery of October 08, 2025 2. Subchronic fluid collection, probable resolving hemorrhage. TRANSCRIBED BY: ELECTRONICALLY SIGNED BY: Jose Cruz Hopkins MD Authorizing ProviderResult TypeResult StatusCorey Waylon DOIMG OB US PROCEDURES Final Result * [facility] PREG QUANT HCG (02/11/2025 4:07 PM EDT) Only the most recent of4 resultswithin the time period is included. ComponentValueRef RangeTest MethodAnalysis TimePerformed AtPathologist Signature HCG QCOWNLNCLNVH11,467mIU/mLTBHComment: 5-50 ? 0.2-1 WEEK 50-500 ? 1-2 WEEKS 100-5,000 ?2-3 WEEKS 500-10,000 ? 3-4 WEEKS 1,000-50,000 ?? 4-5 WEEKS 10,000-100,000 5-6 WEEKS 15,000-200,000 6-8 WEEKS 10,000-100,000 2-3 MONTHS Specimen (Source)Anatomical Location / LateralityCollection Method / Volume Collection TimeReceived Time02/11/2025 4:07 PM EDT02/11/2025 4:07 PM EDT Narrative [facility] - 02/11/2025 4:57 PM EDT Authorizing ProviderResult TypeResult StatusCorey Waylon DOCLINISYNCFinal Result Performing OrganizationAddressCity/State/ZIP CodePhone Number [facility] * ALL PROGESTERONE (02/02/2025 1:49 PM EDT)ComponentValueRef RangeTest Method Analysis TimePerformed AtPathologist GmqtnqjtkSBMNOLYQACMV99.2. ng/mLTBH Comment: ? Follicular phase ? 0.1 - ?? 0.9 ? Luteal phase ? 1.8 - ??23.9 ? Ovulation phase ?0.1 - ??12.0 ?First trimester ?11.0 - ??44.3 ?Second trimester ?? 25.4 - ??83.3 ?Third trimester ?58.7 - 214.0 ? Postmenopausal ? 0.0 - ?? 0.1 Performed at: ??[facility] [address], [place], [place] ??[id number] Endoscopy Technician: Rich Oglesby PhD, Phone: ??[phone] Specimen (Source)Anatomical Location / LateralityCollection Method / Volume Collection TimeReceived Time02/02/2025 1:49 PM EDT02/02/2025 1:57 PM EDT Narrative [facility] - 02/03/2025 4:07 AM EDT Authorizing ProviderResult TypeResult StatusCorey Waylon DOCLINISYNCFinal Result Performing OrganizationAddressCity/State/ZIP CodePhone Number [facility] from Last [address] [place] [address] Care Teams Team MemberRelationshipSpecialtyStart DateEnd Date Shaikh Rizzo MD PCP - GeneralInternal Medicine07/11/23
--- OUTSIDE RECORDS SUMMARY | 2025-04-29 15:00 | XMS_ITS | Patient Health Record ---
Author Organization [facility] [place] Address [address] [place] [address] Care Team Providers Care Senior Reservations Agent Name Role Phone Radha Valle MD Primary Care Provider Unava ilable Reason For Referral No Information Plan Of Treatment No Information Insurance Providers Payer Name Payer Address Payer Phone Subscriber Number Group Number Insured Name Patient Relationship to Insured Coverage Start Date Coverage End Date [employer] [place] [address] [place] [id number] Slava Baldwin Natural Child - Insured does not have Financial Responsibility (includes legally adopted child) 5
--- OUTSIDE RECORDS SUMMARY | 2025-04-29 15:00 | XMS_ITS | Clinical Summary ---
Author Organization [facility] [place] [address] Care Team Providers Care Health Social Work Professor Name Role Phone Radha Valle MD Primary Care Provider [phone] Allergies No known active allergies Medications MedicationSigDispense QuantityRefillsLast FilledStart DateEnd DateStatus Magnesium Oxide (MAG OX) 400 (241.3 MG) MG TABS tablet Take 1 Tab by mouth daily. 30 Tab ctive Riboflavin 100 MG CAPS Take 400 mg by mouth daily. 120 Each ctive Active Problems ProblemNoted DateDiagnosed DateHistory of enlargement of pituitary gland 12/03/2014Migraine headache without aura, lyqyzsqqonc55/19/2015 Family History Medical HistoryRelationCommentsOtherMaternal Grandfatherneuopathy in feet MigrainesOther 1Intellectual DisabilityOther 2Heart DiseaseOther 3MI; before age 69 yearsStrokeOther 3age 52 yearsMigrainesPaternal AuntBrain TumorPaternal GrandfatherSeizuresPaternal GrandfatherStrokePaternal Grandfatherpost op LAP GRINDER tumor removalAnxiety DisorderPaternal GrandmotherMental IllnessPaternal GrandmotherdepressionMigrainesPaternal GrandmotherMigrainesPaternal Uncle RelationStatusCommentsBrotherAliveFatherAliveMaternal GrandfatherMotherAlive Other 1AliveOther 2AliveOther 3DeceasedPaternal AuntPaternal GrandfatherAlive Paternal GrandmotherPaternal Uncle Social History Tobacco UseTypesPacks/DayYears UsedDateSmoking Tobacco: NeverAlcohol UseStandard Drinks/WeekCommentsNo0 (1 standard drink = 0.6 oz pure alcohol)Comments NoSex and Gender InformationValueDate RecordedSex Assigned at BirthNot on file Legal EwzUyqgop75/02/2015 3:06 PM EDTGender IdentityNot on fileSexual OrientationNot on file Last Filed Vital Signs Vital SignReadingTime TakenCommentsBlood Hvyiavch377/72011/03/2014 8:02 AM EDT dddatpdbXqdfh1171/19/2015 8:02 AM ADZveyifbasHsyutzeajhv21.3 ??C (97.3 ??F) 11/03/2014 7:52 AM EDTRespiratory Qbvb080511/03/2014 7:52 AM EDTOxygen Saturation- -Inhaled Oxygen Concentration--Krcrhy52.2 kg (128 lb 4.9 oz)11/03/2014 7:52 AM XAQUcntfp676 cm (5' 4.57 )11/03/2014 7:52 AM EDTBody Mass Index21.64011/03/2014 7:52 AM EDT Plan of Treatment Health MaintenanceDue DateLast DoneCommentsMMR (1 of 1 - Standard series) 11/28/2000Tetanus Diphtheria and Pertussis Vaccines (1 - Tdap)11/28/2006 Varicella (1 of 2 - 13+ 2-dose series)11/28/2012HPV (1 - 3-dose series) 11/28/2014MenB (1 of 2 - MenB 2-Dose Series Bexsero)2015Hepatitis B (1 of 3 - 19+ 3-dose series)11/28/2018COVID-19 ( season)2025FLU (#1) 02/16/2025HIBAged OutNo longer eligible based on patient's age to complete this topicHepatitis AAged OutNo longer eligible based on patient's age to complete this topicMenACWYAged OutNo longer eligible based on patient's age to complete this topicNirsevimabAged OutNo longer eligible based on patient's age to complete this topicPneumococcalAged OutNo longer eligible based on patient's age to complete this topicPolioAged OutNo longer eligible based on patient's age to complete this topicRotavirusAged OutNo longer eligible based on patient's age to complete this topic Insurance Care Teams Team MemberRelationshipSpecialtyStart DateEnd Date Radha Valle MD PCP - GeneralPediatrics09/17/14
--- OUTSIDE RECORDS SUMMARY | 2025-04-29 15:00 | XMS_ITS | Encounter Summary ---
Author Organization [facility] Address [address] [place] [address] Care Team Providers Care Veterinary Technologist Name Role Phone Shaikh UCHE Rizzo Primary Care Provider [phone] Encounter Details DateTypeDepartmentCare Team (Latest Contact Info)Shshutrtfpb81/11/2025Travel Social History Tobacco UseTypesPacks/DayYears UsedDateSmoking Tobacco: NeverSmokeless Tobacco: NeverAlcohol UseStandard Drinks/WeekCommentsNever0 (1 standard drink = 0.6 oz pure alcohol)Estimated Date of JiyihkleFkkimldkKpg71/19/2026ased on last menstrual period of 12/28/2024 (Exact Date)Sex and Gender InformationValue Date RecordedSex Assigned at BirthNot on fileLegal SufIzbutd63/15/2023 7:01 PM EDTGender IdentityNot on fileSexual OrientationNot on filedocumented as of this encounter Plan of Treatment DateTypeDepartmentCare Team (Latest Contact Info)Txwvjmfibrq38/08/2025 1:00 PM ESTAncillary Procedure [facility] [address] [place] [address] 05/25/2025 2:10 PM ESTRoutine [facility] [address] [place] [facility] [place] [address] Davon Connors DO [address] [place] [address] documented as of this encounter Visit Diagnoses Not on filedocumented in this encounter Care Teams Team MemberRelationshipSpecialtyStart DateEnd Date FawShaikh glaser MD PCP - GeneralInternal Medicine07/11/23documented as of this encounter
--- OUTSIDE RECORDS SUMMARY | 2025-04-29 15:00 | XMS_ITS | Encounter Summary ---
Author Organization [facility] Address [address] [place] [address] Care Team Providers Care Recovery Collector Name Role Phone Shaikh UCHE Rizzo Primary Care Provider [phone] Encounter Details DateTypeDepartmentCare Team (Latest Contact Info)Bfvrkqoseue19/12/2025amboo flowsheet [facility] [address] [facility] [place] [phone] Kelsey Ruiz PA [address] [place], [place] [id number] Social History Tobacco UseTypesPacks/DayYears UsedDateSmoking Tobacco: NeverSmokeless Tobacco: NeverAlcohol UseStandard Drinks/WeekCommentsNot Currently0 (1 standard drink = 0.6 oz pure alcohol)special occasions/social gatheringsEstimated Date of JpwgcseuAvghpkspIsm63/19/2026Based on last menstrual period of 12/28/2024 (Exact Date)Sex and Gender InformationValueDate RecordedSex Assigned at BirthNot on fileLegal PqaSqcuue77/15/2023 7:01 PM EDTGender IdentityNot on fileSexual OrientationNot on filedocumented as of this encounter Plan of Treatment DateTypeDepartmentCare Team (Latest Contact Info)Bqpkktjizrs90/08/2025 1:00 PM ESTAncillary Procedure [facility] [address] [place] [address] 05/25/2025 2:10 PM ESTRoutine [facility] [address] [place] [address] Davon Connors DO [address] [facility] [place] [address] documented as of this encounter Visit Diagnoses Not on filedocumented in this encounter Care Teams Team MemberRelationshipSpecialtyStart DateEnd Date Shaikh Rizzo MD PCP - GeneralInternal Medicine07/11/23documented as of this encounter
--- OUTSIDE RECORDS SUMMARY | 2025-04-29 15:09 | XMS_ITS | CCD ---
Author Organization [facility] CliniSyks Care Team Providers Care Line Installer Name Role Phone WAYLON ., DR MORIN Admitting Unavailable WAYLON ., DR MORIN Attending Unavailable REQUEST, DR NONE LISTED Primary Care Unavaila ble WAYLON ., DR MORIN Consulting Unavailable ZIEBER, DR JESE Franco Consulting Unavailable DHARMESH ., AMILCAR Admitting Unavailable DHARMESH ., AMILCAR Attending Unavailable FAWMOEl, [facility] Primary Care Unavailable VIRGIL ., KELSEY Consulting Unavailable VIRGIL ., KELSEY Admitting Unavailable VIRGIL ., KELSEY Attending Unavailable [facility], [facility] Primary Care Unavailable VIRGIL ., KELSEY Consulting Unavailable VIRGIL ., KELSEY Admitting Unavailable VIRGIL ., KELSEY Attending Unavailable FAWMOD, GARCIA H Primary Care Unavailable ZIEBER, DR EJSE Franco Consulting Unavailable VIRGIL ., KELSEY Consulting Unavailable REQUEST, DR NONE LISTED Consulting Unavaila Maggie Patel Unavailable MICKEY Bailey Attending Provider Annetta Suárez Unavailable NO FAMILY, PHYSICIAN Primary Care Provider Unava ilable Patience Connors Attending Provider Patience Connors Admitting Unavailable NO FAMILY, PHYSICIAN Primary Care Unavailable Patience Connors Attending Unavailable Annel Bailey Attending Unavailable Annel Bailey Admitting Unavailable NO FAMILY, PHYSICIAN Primary Care Unavailable NO FAMILY, PHYSICIAN Primary Care Provider Unava ilable Patience Connors Attending Provider [phone] Shaikh Rizzo MD Primary Care Provider NO FAMILY, PHYSICIAN Primary Care Provider Unava ilMaggie Justin APRN Attending Provider Mirta Harris APRN Attending Provider Shaikh Rizzo MD Primary Care Provider [phone] KELSEY HERMAN Attending Unavailable PATIENCE CONNORS Attending Unavailable Medications Current Medications MedicationDrug Class(es)DatesSig (Normalized)Sig (Original)azithromycin 250 mg oral tablet (1 source)Macrolide AntimicrobialStart: 21-33-7575Lejbinresvhs 250 mg tablet Active 0 PO .COMPLEX December 22, 2024 12:00am For 250 mg dose pack: wsob503 mg today (day 1), then 250 mg for 4 days (days 2-5) PO Complies with drug therapy cephalexin 500 mg oral capsule (4 sources)Cephalosporin AntibacterialStart: 98-83-6375szjc 1 capsule by mouth every eight hoursCephalexin 500 MG 1 capsule Orally three times a day for 10 day(s) Jun, ActiveStart: 60-51-2367svuw 1 capsule by mouth every eight hoursCephalexin 500 MG 1 capsule Orally every 8 hrs for 7 Mar, Active ondansetron 4 mg disintegrating oral tablet (3 sources)Serotonin-3 Receptor AntagonistStart: 02-23-2025 End: 88-36-8450euvu 1 tablet by mouth every six hours for nauseaondansetron ODT (Zofran-ODT) 4 MG disintegrating tablet Indications: Nausea and vomiting in ([facility]) Take 1 tablet (4 mg) by mouth every 6 (six) hours if needed for nausea or vomiting 30 tablet 2 02/23/2025 03/25/2025 Activetake 1 tablet by mouth once dailyZofran ODT 4 MG 1 tablet on the tongue and allow to dissolve Orally Once a day Not-TakingPrenatal MV-Min-Fe Fum-FA-DHA ( 1 PO) (4 sources) MV-Min-Fe Fum-FA-DHA ( 1 PO) Take by mouth Active Completed/Discontinued Medications MedicationDrug Class(es)DatesSig (Normalized)Sig (Original)amoxicillin 500 mg oral capsule (4 sources)Penicillin-class AntibacterialStart: 10-25-2024 End: 99-31-4998irmt 1 capsule by mouth twice dailyAmoxicillin 500 mg capsule Discontinued 500 MG PO Twice daily October 25, 2024 12:00am December 22, 2024 12:37pmStart: 32-86-5224hirt 1 tablet by mouth every twelve hoursAmoxicillin 875 MG 1 tablet Orally every 12 hrs for 7 days May, Not-Taking dextromethorphan hydrobromide 1.5 mg/ml / pyrilamine maleate 1.5 mg/ml oral solution (2 sources)Uncompetitive P-jgxmpi-C-aspartate Receptor Antagonist, Sigma-1 AgonistStart: 19-02-5374Gqhmvw DM 7.5-7.5 MG/5ML 10 ml Orally every 6-8 hours PRN for 8 days May, Not-TakingEtonogestrel (2 sources)ProgestinNexplanon Not-TakingPrenatal No.167-Folic Acid-Dha (One-A-Day ) 400 mcg- 25 mg tablet,chewable (2 sources)Start: 10-25-2024 End: 47-76-8151Hkiyakyv No.167-Folic Acid-Dha (One-A-Day ) 400 mcg- 25 mg tablet,chewable Discontinued TABPO October 25, 2024 12:00am December 22, 2024 12:41pmStart: 21-76-3805Sewcvkqn No.167-Folic Acid-Dha (One-A-Day ) 400 mcg- 25 mg tablet,chewable Active TAB PO October 25, 2024 12:00amPrenatal Vitamin 27-0.8 MG (2 sources)take 1 tablet by mouth once dailyPrenatal Vitamin 27-0.8 MG 1 tablet Orally Once a day Not-Takingtake 1 tablet by mouth once dailyPrenatal Vitamin 27-0.8 MG 1 tablet Orally Once a day ActiveTB Test (6 sources)Start: 59-75-5456US Test Dec, . mLStart: 98-27-5337BH Test Dec, .05 mL24 hr venlafaxine 37.5 mg extended release oral capsule (8 sources)Serotonin and Norepinephrine Reuptake InhibitorStart: 08-30-2023 End: 19-86-6046pybm 1 capsule by mouth every twenty-four hoursVenlafaxine 37.5 mg capsule,extended release 24hr Discontinued MG PO August 30, 2023 12:00am October 25, 2024 9:43amStart: 17-23-4422Jvehromnime Active MG PO August 30, 2023 12:00amStart: 08-08-2023 End: 13-03-1782cbqu 1 capsule by mouth once dailyvenlafaxine XR (Effexor XR) 37.5 MG 24 hr capsule Indications: Anxiety, generalized (CMS/HCC) Take 1 capsule (37.5 mg) by mouth Daily Do not crush or chew. 30 capsule 11 08/08/2023 11/26/2024 Discontinued Problems Active Problems Problem ClassificationProblemDateDocumented DateEpisodic/ChronicContraceptive and procreative management (10 sources)Surveillance of contraception; Translations: [Encounter for surveillance of other contraceptives] Resolved: 76-34-7403HzbhrawyYkevusoy; including migraine (16 sources)Migraine without aura, not refractory ; Translations: [Migraine without aura, without mention of intractable migraine without mention of status migrainosus]Onset: 05-16-2018 Resolved: 366467-41-2855RhbquxoXdgmnmmtuuagq and screening for infectious disease (6 sources)Encounter for screening for infections with a predominantly sexual mode of transmission; Translations: [Encounter for screening for other viral diseases] Resolved: 27-13-2418FlfgqxqvSqezcpkan disorders (18 sources)Irregular menstruation, unspecified; Translations: [Missed period] Onset: 01-64-4241LosfecqFwfdcr and vomiting (3 sources)Nausea with vomiting, unspecified; Translations: [NAUSEA WITH VOMITING UNSPECIFIED]Onset: 57-00-0163SzsugxgsIkiqhiefojcy breast conditions (2 sources)Mastitis without abscessEpisodicOther complications of (1 source)Mild hyperemesis gravidarum; Translations: [MILD HYPEREMESIS GRAVIDARUM]Onset: 71-99-1401PzvycargDfzyz nutritional; endocrine; and metabolic disorders (1 source)Obesity, unspecified; Translations: [Obesity, unspecified]ChronicOther nutritional; endocrine; and metabolic disorders (2 sources)Metabolic syndrome X; Translations: [Metabolic syndrome]ChronicOther nutritional; endocrine; and metabolic disorders (1 source)Obesity; Translations: [Obesity, unspecified]ChronicOther nutritional; endocrine; and metabolic disorders (1 source)Overweight; Translations: [Overweight]EpisodicOther nutritional; endocrine; and metabolic disorders (1 source)Overweight; Translations: [Overweight]EpisodicOther and delivery including normal (6 sources)Encounter for supervision of normal , unspecified, first trimester; Translations: [Urine test positive]Onset: 08-10-2022 92-93-4248IsfvcejaIncvn screening for suspected conditions (not mental disorders or infectious disease) (8 sources)Encounter for other specified screening; Translations: [Encounter for screening for malignant neoplasm of cervix]Onset: 10-03-2022 EpisodicOther skin disorders (1 source)Follicular disorder, unspecified; Translations: [Follicular disorder, unspecified]EpisodicResidual codes; unclassified (1 source)14 weeks gestation of ; Translations: [14 WEEKS GESTATION OF ]Onset: 88-54-9511NshfekvdUsvfkmiq codes; unclassified (2 sources)Gestation period, 13 weeks; Translations: [13 weeks gestation of ]17-95-0982TswelxvhZkazsjo tract infections (1 source)Urinary tract infection, site not specifiedEpisodicViral infection (2 sources)Disease caused by 2019-nCoV; Translations: [COVID-19] Past or Other Problems Problem ClassificationProblemDateDocumented DateEpisodic/ChronicAbdominal pain (2 sources)Pelvic and perineal pain; Translations: [Pelvic and perineal pain] Resolved: 66-06-8082VvwrybqoHvbfexo dysrhythmias (16 sources)Tachycardia; Translations: [Tachycardia, unspecified]Onset: 294863-17-8235RczledwbAsdoobplyrtqk symptoms and ill-defined conditions (2 sources)Dysuria; Translations: [Dysuria]Onset: 51-15-1178DipeitthGenpe nutritional; endocrine; and metabolic disorders (1 source)Body mass index (BMI) 26.0-26.9, adult; Translations: [Body mass index (BMI) 26.0-26.9, adult] Resolved: 05-76-2856FefhfnkiPqpxw nutritional; endocrine; and metabolic disorders (2 sources)Underweight; Translations: [Underweight] Resolved: 66-52-0511BolgqfakYabwe nutritional; endocrine; and metabolic disorders (1 source)Body mass index 25-29 - overweight; Translations: [Body mass index (BMI) 26.0-26.9, adult] Resolved: 83-08-5279BgvhzorsCoxoz nutritional; endocrine; and metabolic disorders (14 sources)H/O: endocrine disorder; Translations: [Personal history of other endocrine, nutritional and metabolic disease]Onset: 916936-12-1831Iynlrbso Other skin disorders (2 sources)Hair and hair follicle diseases; Translations: [Other specified disease of hair and hair follicles]Onset: 01-23-2019 Resolved: 29-07-5143GfxvspfpOhhlq skin disorders (2 sources)Acne; Translations: [Acne, unspecified]Onset: 05-16-2018 Resolved: 55-44-7307IizkvztrMiovm skin disorders (15 sources)Folliculitis; Translations: [Follicular disorder, unspecified]Onset: 961523-85-0089NqnvklxeHtkmv upper respiratory disease (1 source)Seasonal allergic rhinitis; Translations: [Other seasonal allergic rhinitis]Onset: 05-16-2018 Resolved: 54-36-1100KnwrvmdYwomq upper respiratory disease (1 source)Other seasonal allergic rhinitis; Translations: [Other seasonal allergic rhinitis]Onset: 05-16-2018 Resolved: 22-29-5315NjyfaxcCtcahamnxcfh (1 source)Routine general medical examination at health care facility; Translations: [Routine general medicalexamination at health care facility]Onset: 05-16-2018 Resolved: 07-01-2020 Results Test NameValueInterpretationReference RangeFacilityUrinalysis macro (dipstick) panel (U)on 63-01-7591Zgorwkunb, UANegativeNegative - 4(70) +++ mg/dLNOMS HealthcareBlood, UANegativeNegative - 50 Héctor/mcLNOMS HealthcareClarity, UAClear NOMS HealthcareColor, UAYellowNOMS HealthcareGlucose, UANegativeNegative - 2000(110) ++++ mg/dLNOMS HealthcareInterpretation and review of laboratory resultsAbnormalNOMS HealthcareKetones, UANegativeNegative - 160(16) ++++ mg/dL NOMS HealthcareLeukocytes, UA1+Negative - 500+++ Macho/mcLNOMS HealthcareNitrite, UANegativeNegative - PositiveNOMS HealthcarepH, UA6.05 - 9NOMS Healthcare Protein, UANegativeNegative - 2000(20) ++++ mg/dLSaint Luke's HospitalSpec Grav, UA 1.0301 - 1.03NOMA HealthcareUrobilinogen, UA1.00.2 - 12 mg/dLAtrium Health Kings MountainHCG ( test) Ql (U)on 29-10-2798Strmnthngavbqd and review of laboratory resultsAbnormalSaint Luke's HospitalPreg Test, UrPositiveNegativeNOKindred Hospital HealthcareUS OB TRANSVAGINALon 84-44-1720TN OB TRANSVAGINAL FINDINGS: A single intrauterine gestational sac is present. A single pole is present. Normal heart rate at 161 beats per minute. Yolk sac also is seen. Current sonographic age is 8 weeks and 0 daysbased on the crown-rump length measurement of 1.7 cm. Based on this age, current estimated date of delivery is October 08, 2025. No pelvic fluid or adnexal mass present. Cervix is closed, 3.2 cm. Moderate sized subchorionic fluid collection (1.4 x 2.5 x 4.3 cm), closely neighboring the closed internal cervical os. IMPRESSION: 1. Findings consistent with a live intrauterine gestation, current sonographic age of 8 weeks and 0days resulting in an estimated date of delivery of October 08, 2025 2. Subchronic fluid collection, probable resolving hemorrhage. TRANSCRIBED BY: ELECTRONICALLY SIGNED BY: Gabe NapierNot AvailableComment on above:Order Comment: US OB TRANSVAGINAL No LMP recorded.US Pelvis transvaginalon . Findings consistent with a live intrauterine gestation, current sonographic age of 8 weeks and 0days resulting in an estimated date of delivery of October 08, 2025 2. Subchronic fluid collection, probable resolving hemorrhage. TRANSCRIBED BY: ELECTRONICALLY SIGNED BY: Jose Cruz Hopkins MDIMAGING FINDINGS: A single intrauterine gestational sac is present. A single pole is present. Normal heart rate at 161 beats per minute. Yolk sac also is seen. Current sonographic age is 8 weeks and 0 daysbased on the crown-rump length measurement of 1.7 cm. Based on this age, current estimated date of delivery is October 08, 2025. No pelvic fluid or adnexal mass present. Cervix is closed, 3.2 cm. Moderate sized subchorionic fluid collection (1.4 x 2.5 x 4.3 cm), closely neighboring the closed internal cervical os. IMAGINGSpirJose Cruz zavala MD - 02/26/2025 FINDINGS: A single intrauterine gestational sac is present. A single pole is present. Normal heart rate at 161 beats per minute. Yolk sac also is seen. Current sonographic age is 8 weeks and 0 daysbased on the crown-rump length measurement of 1.7 cm. Based on this age, current estimated date of delivery is October 08, 2025. No pelvic fluid or adnexal mass present. Cervix is closed, 3.2 cm. Moderate sized subchorionic fluid collection (1.4 x 2.5 x 4.3 cm), closely neighboring the closed internal cervical os. IMPRESSION: 1. Findings consistent with a live intrauterine gestation, current sonographic age of 8 weeks and 0days resulting in an estimated date of delivery of October 08, 2025 2. Subchronic fluid collection, probable resolving hemorrhage. TRANSCRIBED BY: ELECTRONICALLY SIGNED BY: Jose Cruz Hopkins MD [facility] HealthcareRadiology Study observation (narrative)[facility] HealthcareUS Pelvis transvaginalOrdered By: Jose Cruz Hopkins on 42-58-1128PPWFSaint Luke's Hospital Work Phone: Urinalysis macro (dipstick) panel (U)on 02-26-2025 Bilirubin, UANegativeNegative - 4(70) +++ mg/dLNOMS HealthcareBlood, UANegative Negative - 50 Héctor/mcLNOMA HealthcareClarity, UAClearNOMA HealthcareColor, UA YellowNOMS HealthcareGlucose, UANegativeNegative - 1999(110) ++++ mg/dLNOMA HealthcareInterpretation and review of laboratory resultsNormalNOMA Healthcare Ketones, UANegativeNegative - 160(16) ++++ mg/dLNOMA HealthcareLeukocytes, UA NegativeNegative - 500+++ Macho/mcLNOMS HealthcareNitrite, UANegativeNegative - PositiveNOMS HealthcarepH, UA6.55 - 9NOMS HealthcareProtein, UANegativeNegative - 2000(20) ++++ mg/dLNOMS HealthcareSpec Grav, UA1.0151 - 1.03N[facility] Healthcare Urobilinogen, UA0.20.2 - 12 mg/dLNOChildren's Mercy HospitalNOMA HealthcareTB PREG QUANT HCGon 93-61-4781ZAU LNRWAEMASJDT88344gRY/mLNOMS HealthcareComment on above:5-50 0.2-1 WEEK 50-500 1-2 WEEKS 100-5,000 2-3 WEEKS 500-10,000 3-4 WEEKS 1,000-50,000 4-5 WEEKS 10,000-100,000 5-6 WEEKS 15,000-200,000 6-8 WEEKS 10,000-100,000 2-3 MONTHS [facility] PREG QUANT HCGon 87-67-9397HEY HSPTTTEWERXR5026 mIU/mLNOMS HealthcareComment on above:5-50 0.2-1 WEEK 50-500 1-2 WEEKS 100-5,000 2-3 WEEKS 500-10,000 3-4 WEEKS 1,000-50,000 4-5 WEEKS 10,000-100,000 5-6 WEEKS 15,000-200,000 6-8 WEEKS 10,000-100,000 2-3 MONTHS [facility] PREG QUANT HCGon 51-16-3791GQI WMAXEWRYQREN2875 mIU/mLNOMS HealthcareComment on above:5-50 0.2-1 WEEK 50-500 1-2 WEEKS 100-5,000 2-3 WEEKS 500-10,000 3-4 WEEKS 1,000-50,000 4-5 WEEKS 10,000-100,000 5-6 WEEKS 15,000-200,000 6-8 WEEKS 10,000-100,000 2-3 MON[facility]YH[facility] HospitalTB PREG QUANT HCGon 35-42-6332ZYW GXLUVMGUYUII235eXP/mL NOMS HealthcareComment on above:5-50 0.2-1 WEEK 50-500 1-2 WEEKS 100-5,000 2-3 WEEKS 500-10,000 3-4 WEEKS 1,000-50,000 4-5 WEEKS 10,000-100,000 5-6 WEEKS 15,000-200,000 6-8 WEEKS 10,000-100,000 2-3 MONTHS [facility]YHenderson County Community HospitalNo [facility] InformationOrdered By: Mirta Harris on 55-06-6868Qkjmw Strep (POC)TrihealthIGP,APTIMA HPV,AGE GDLNon 01-42-2052YRQ GDLN ACOG TESTINGNote.[facility] HealthcareComment on above:TESTS RESULT FLAG UNITS REF RANGE LAB Clinician Provided Cytology Information Source.............Cervix;Endocervix No. of containers..01 ThinPrep Vial Age Algo ACOG Palm[place]... FLAG LEGEND: L-Low Normal,H-High Normal,LL-Alert Low,HH-Alert High <-Panic Low,>-Panic High,A-Abnormal,AA-Critical Abnormal Performed at: 01 =G [facility] [address] Bela Davis MD, IGP, RFX APTIMA HPV ASCUNote.[facility] HealthcareComment on above:TESTS RESULT FLAG UNITS REF RANGE LAB DIAGNOSIS: 02 NEGATIVE FOR INTRAEPITHELIAL LESION OR MALIGNANCY. Specimen adequacy: 02 Satisfactory for evaluation. Endocervical and/or squamous metaplastic cells (endocervical component) are present. Performed by: 02 Jose Zapata Horse Race Starter (ASCP) . 02 Note: Note 02 The Pap smear is a screening test designed to aid in the detection of premalignant and malignant conditions of the uterine cervix. It is not a diagnostic procedure and should not be used as the sole means of detecting cervical cancer. Both false-positive and false-negative reports do occur. Test Methodology: Note 02 This liquid based ThinPrep(R) pap test was screened with the use of an image guided system. . 02 The HPV DNA reflex criteria were not met with this specimen result therefore, no HPV testing was performed. FLAG LEGEND: L-Low Normal,H-High Normal,LL-Alert Low,HH-Alert High <-Panic Low,>-Panic High,A-Abnormal,AA-Critical Abnormal Performed at: [address] [address] Bela Davis MD, Performed at: =G - [facility] [address] [id number] Fishing Gear Mechanic: Bela Davis MD, Phone: [phone] Performed at: - [facility] [id number] Fishing Gear Mechanic: Bela Davis MD, Phone: [phone] BRUSH-SPATULA CERVIX ENDOCERVIX CLINISYNCNOMS HealthcareTBH PREG QUANT HCGon 02-38-3709BBE QUANTITATIVE<1mIU/mL NOMS HealthcareComment on above:5-50 0.2-1 WEEK 50-500 1-2 WEEKS 100-5,000 2-3 WEEKS 500-10,000 3-4 WEEKS 1,000-50,000 4-5 WEEKS 10,000-100,000 5-6 WEEKS 15,000-200,000 6-8 WEEKS 10,000-100,000 2-3 MONTHS [facility] CenterTB PREG QUANT HCGon 65-41-6847PTF ZWOAGXBGFJZS27fEK/mL NOMS HealthcareComment on above:5-50 0.2-1 WEEK 50-500 1-2 WEEKS 100-5,000 2-3 WEEKS 500-10,000 3-4 WEEKS 1,000-50,000 4-5 WEEKS 10,000-100,000 5-6 WEEKS 15,000-200,000 6-8 WEEKS 10,000-100,000 2-3 MONTHS [facility]IN[facility]YHenderson County Community HospitalNo Panel InformationOrdered By: Maggie Braden on 69-97-5356Pfioc Strep (POC)TrihealthLon 07-11-2023L Specimen: [id number] Received: 07/12/23 Status: NYASIA Chavez Num: [id number] Spec Type: Surgical Subm Dr: Patience Connors Tissues: A Soft Tissue/Surgical Margin-Other than Tumor,Mass,Lip or Ryanne (TISSUE EPISIOT Procedures: HE, Gross/Micro L4 Age/ Patient Sex Location Account Attending Physician Danelle Bermudez 22/F LABELL [id number] Patience Connors SPEC NUM: [id number] RECD: 07/12/23 STATUS: NYASIA CHAVEZ NUM: [id number] KIMBERLYN: 07/11/23 DR: Patience Connors ENTERED: 07/12/23 [facility] DR: Bud,Lab SPEC TYPE: Surgical DEPT: MELIDA [...] in one cassette labeled A1. CPT Codes 01628 Specimen: [id number] Received: 07/12/23 Status: NYASIA Chavez Num: [id number] Spec Type: Surgical Subm Dr: Patience Connors Tissues: A Soft Tissue/Surgical Margin-Other than Tumor,Mass,Lip or Ryanne (TISSUE EPISIOT Procedures: Aga SARKAR/Renny L4 Patient: Danelle Bermudez [id number] (Continued) Signed (signature on file) Cedric Stern MD 07/14/23 1144Premier HealthUrinalysis - AUTOMATEDon 21-63-3662Qzuaaqilll (U)[employer] Other Bilirubin Ql (U)NegativeGreenville Junction Tengaged Other Color (U)yellowGreenville Junction Tengaged Other Glucose Ql (U)NegativeGreenville Junction Tengaged Other Hemoglobin Ql (U)trace intactGreenville Junction Tengaged Other Ketones Ql (U)NegativeGreenville Junction Tengaged Other Leukocyte esterase Test strip Ql (U)smallGreenville Junction Tengaged Other Nitrite Ql (U)[facility] Tengaged Other pH (U)6.5 [pH][facility] Ordr.in Other Protein Ql (U)[facility] Tengaged Other Specific gravity (U) [Rel density]1.010[place] [employer]eng[employer] Other Urobilinogen (U) [Mass/Vol]0.2 mg/dLGreenville Junction Tengaged Other Urinalysis - AUTOMATEDGreenville Junction Tengaged Other Urine Cultureon 44-43-9194Dcesbodn identified Cx Nom (U)<9,000 colonies/ml mixed bacterial skin contaminants 2 Days PERFORMED BY: [place] [id number] PATHOLOGIST HATCHERY ATTENDANT EZEKIEL TERRELL M.D.Premier HealthComment on above: Performed By: #### CUU #### [place] [address] [facility] PREG ANATOMY SINGLEon 31-28-6834TX PREG ANATOMY SINGLE EXAMINATION: US PREG ANATOMY [...] Electronically authenticated by: JESE MENDEZ Date: 2022-10-24 15:56[facility] HospitalPap IG, rfx Aptima HPV, rfx 16/18,45on 10-10-2022..NormalThe [facility] Clinic Lutheran HospitalComment on above:Result Comment: Performed at: WBPerformed By: #### [id number] #### [facility] [address] [place] [address] Dr. Jason CristinaDIAGNOSIS:CommentNoWood County HospitalComment on above: Result Comment: NEGATIVE FOR INTRAEPITHELIAL LESION OR MALIGNANCY. FUNGAL ORGANISMS MORPHOLOGICALLY CONSISTENT WITH JENNIFER SPECIES ARE PRESENT. CELLULAR CHANGES ASSOCIATED WITH INFLAMMATION ARE PRESENT. Performed at: WBPerformed By: #### [id number] #### [facility] [address] [place] [address] Dr. Jason CristinaHPV AptimaNegativeNormalNegativeThe [facility] Luther[facility] HospitalComment on above:Result Comment: This nucleic acid amplification test detects fourteen high-risk HPV types (16,18,31,33,35,39,45,51,52,56,58,59,66,68) without differentiation. Performed at: =GPerformed By: #### [id number] #### [facility] [address] [place] [address] Dr. Jason CristinaHPV Genotype ReflexCommentSouthwest General Health Center on above:Result Comment: Criteria not met, HPV Genotype not performed. Performed at: WBPerformed By: #### [id number] #### [facility] [address] [place] [address] Dr. Jason CristinaMethodology:CommentSouthwest General Health Center on above: Result Comment: This liquid based ThinPrep(R) pap test was screened with the use of an image guided system. Performed at: WBPerformed By: #### [id number] #### [place] [address] Dr. Jason CristinaNote:CommentSouthwest General Health Center on above:Result Comment: The Pap smear is a screening test designed to aid in the detection of premalignant and malignant conditions of the uterine cervix. It is not a diagnostic procedure and should not be used as the sole means of detecting cervical cancer. Both false-positive and false-negative reports do occur. . Performed at: WBPerformed By: #### [id number] #### [place] [address] Dr. Jason CristinaPerformed by:CommentNoSelect Medical [facility] on above: Result Comment: Naomie Forbes, Warehouse Handler (ASCP) Performed at: WBPerformed By: #### [id number] #### [facility] [address] [place] [address] Dr. Jason CristinaSpecimereddy adequacy:CommentSouthwest General Health Center on above:Result Comment: Satisfactory for evaluation. Endocervical and/or squamous metaplastic cells (endocervical component) are present. Performed at: WBPerformed By: #### [id number] #### [facility] [address] [place] [address] Dr. Jason Buckley W MANUAL DIFFon 88-96-5302XSDWTDFR LYMPH #0.10 103/ulNormal The Maxwell HospitalComment on above:Performed By: #### BRYNN #### [facility] [address] [place] [address] Dr. Jason NgoYPICAL LYMPH %1 %NormalThe Maxwell HospitalComment on above: Performed By: #### BRYNN #### [facility] [address] [place] [address] Dr. Jason Ramirez #0.0 103/ulNormal0.0-0.3The Maxwell HospitalComment on above:Performed By: #### BRYNN #### [facility] [address] [place] [address] Dr. Jason Ramirez %0 %Normal0-5The [facility] HospitalComment on above:Performed By: #### RBYNN #### [facility] [address] [place] [address] Dr. Jason Leon #0.00 103/ulNormal0.00-0.10The [facility] HospitalComment on above:Performed By: #### BRYNN #### [facility] [address] [place] [address] Dr. Jason Leon %0.0 %Critically low0.2-2.0The [facility] HospitalComment on above:Performed By: #### BRYNN #### [facility] [address] [place] [address] Dr. Jason Atwood #NormalThe Maxwell HospitalComment on above:Performed By: #### BRYNN #### [facility] [address] [place] [address] Dr. Jason Atwood %NormalTuscarawas Hospital HospitalComment on above:Performed By: #### BRYNN #### [facility] [address] [place] [address] Dr. Jason CristinaCORRECTED WBCNormal4.0-11.0The [facility] HospitalComment on above: Performed By: #### BRYNN #### [facility] [address] [place] [address] Dr. Jason Courtney #0.00 103/ulNormal0.00-0.70The [facility] HospitalComment on above:Performed By: #### BRYNN #### [facility] [address] [place] [address] Dr. Jason Courtney%0.0 %Critically low0.9-7.0The [facility] HospitalComment on above:Performed By: #### BRYNN #### [facility] [address] [place] [address] Dr. Jason De JesusT37.4 %Dwzpke97.0-48.0The [facility] HospitalComment on above: Performed By: #### BRYNN #### [facility] [address] [place] [address] Dr. Jason CristinaHGB13.3 g/baFjakzf74.0-16.0The [facility] HospitalComment on above: Performed By: #### BRYNN #### [facility] [address] [place] [address] Dr. Jason Horowitz #0.39 103/ulCritically low1.20-3.80The [facility] Comment on above:Performed By: #### BRYNN #### [facility] [address] [place] [address] Dr. Jason Horowitz%4.0 %Critically low20.5-60.0The [facility] HospitalComment on above:Performed By: #### BRYNN #### [facility] [address] [place] [address] Dr. Jason NgH31.4 hrSdbekt00.7-34.0The [facility] HospitalComment on above: Performed By: #### BRYNN #### [facility] [address] [place] [address] Dr. Jason NgHC35.6 g/dlCritically high29.9-35.2The [facility] HospitalComment on above:Performed By: #### BRYNN #### [facility] [address] [place] [address] Dr. Jason NgV88.4 kFBhwraw31.0-99.0The [facility] HospitalComment on above: Performed By: #### BRYNN #### [facility] [address] [address] [address] Jason GarzaOCYTE #NormalCrystal Clinic Orthopedic CenterComment on above: Performed By: #### BRYNN #### [facility] [address] [address] [address] Jason GarzaOCYTE %NormalTuscarawas Hospital HospitalComment on above: Performed By: #### BRYNN #### [facility] [address] [address] [address] Jason Mata#0.19 103/ulCritically low0.30-0.80The [facility] on above:Performed By: #### BRYNN #### [facility] [address] [place] [address] Dr. Jason Mata%2.0 %Normal1.7-12.0The [facility] HospitalComment on above: Performed By: #### BRYNN #### [facility] [address] [place] [address] Dr. Jason CristinaMPV10.0 fLNormal9.5-13.5The [facility] HospitalComment on above: Performed By: #### BRYNN #### [facility] [address] [place] [address] Dr. Jason Oleary #NormalCrystal Clinic Orthopedic CenterComment on above:Performed By: #### BRYNN #### [facility] [address] [place] [address] Dr. Jason PorterOCYTE %NormalCrystal Clinic Orthopedic CenterComment on above:Performed By: #### BRYNN #### [facility] [address] [place] [address] Dr. Jason CristinaNRBCNormalThChillicothe HospitalComment on above:Performed By: #### BRYNN #### [facility] [address] [address] [address] Jason CristinaPLT202 103/fsBdbmcc616-342Pja St[facility]'s Medical Centerment on above: Performed By: #### CBCMAN #### [facility] [address] [address] [address] Jason HinojosaC4.23 106/ulNormal4.20-5.40The [facility]. Mary's Medical Centerment on above:Performed By: #### CBCMAN #### [facility] [address] [address] [address] Jason SouzaW12.5 %Imiqno36.0-15.0The [facility] HospitalComment on above: Performed By: #### CBCMAN #### [facility] [address] [address] [address] Jason Pizarro #9.02 103/ulCritically high1.40-6.50The [facility] on above:Performed By: #### CBCAJ #### [facility] [address] [address] [address] Jason Pizarro %93.0 %Critically high43.0-75.0The [facility] on above:Performed By: #### CBCAJ #### [facility] [address] [address] [address] Jason QiuBC9.7 103/ulNormal4.0-11.0The [facility] on above: Performed By: #### CBCAJ #### [facility] [address] [address] [address] Jason Patricio URINE PROFILEon 89-41-1956Muafpxkgm Ql (U)NegativeNormal NEGATIVEThe [facility] HospitalComment on above:Performed By: #### PREGU, ERUR #### [facility] [address] [address] [address] Jason Powellarity (U)CLEARNormalCLEARThe [facility] HospitalComment on above: Performed By: #### PREGU, ERUR #### [facility] [address] [address] [address] Jason Bro (U)YELLOWNormalYELLOWThe [facility] HospitalComment on above: Performed By: #### PREGU, ERUR #### [facility] [address] [place] [address] Dr. Jason Buckley micrscopic examination will be performed if indicated. NormalCrystal Clinic Orthopedic CenterComment on above:Performed By: #### PREGU, ERUR #### [facility] [address] [address] [address] Jason CristinaGlucose Ql (U)NegativeNormalNEGATIVECrystal Clinic Orthopedic CenterComment on above:Performed By: #### PREGU, ERUR #### [facility] [address] [place] [address] Dr. Jason CristinaHemoglobin Ql (U)NegativeNormalNEGDetwiler Memorial Hospital Comment on above:Performed By: #### PREGU, ERUR #### [facility] [address] [place] [address] Dr. Jason CristinaKetones Ql (U)15 mg/dlAbnormalNEGDetwiler Memorial Hospital Comment on above:Performed By: #### PREGU, ERUR #### [facility] [address] [place] [address] Dr. Jason CristinaLEUKOCYTESNegativeNormalNEGDetwiler Memorial HospitalComment on above:Performed By: #### PREGU, ERUR #### [facility] [address] [place] [address] Dr. Jason CristinaNitrite Ql (U)NegativeNormalNEGATIVECrystal Clinic Orthopedic CenterComment on above:Performed By: #### PREGU, ERUR #### [facility] [address] [place] [address] Dr. Jason CristinapH (U)6.0 [pH]Normal5-9Crystal Clinic Orthopedic CenterComment on above: Performed By: #### PREGU, ERUR #### [facility] [address] [place] [address] Dr. Jason CristinaSPEC GRAVITY>=1.782Stukwrvy8.005-<=1.025[facility] Comment on above:Performed By: #### PREGU, ERUR #### [facility] [address] [address] [address] Jason Bocanegra PROTEINTRACENormalNEGATIVE/ TRACEThe [facility] HospitalComment on above:Performed By: #### PREGU, ERUR #### [facility] [address] [place] [address] Dr. Jason Lazaro MICRO INDNOT INDICATEDNormalThe [facility] HospitalComment on above:Performed By: #### PREGU, ERUR #### [facility] [address] [place] [address] Dr. Jason Kimbilinogen Qn (U)1.0 {Josephine'U}/dLNormal0.2 - 1.0The [facility] HospitalComment on above:Performed By: #### PREGU, ERUR #### [facility] [address] [place] [address] Dr. Jason CristinaPREGNANCY URon 54-65-9475BQXZCJTHE, QUALPositiveAbnormalNEGATIVE The [facility] HospitalComment on above:Performed By: #### PREGU, ERUR #### [facility] [address] [place] [address] Dr. Jason DenisF CHEM 8 (BAS METB)on 92-10-6847Rtrru gap [Moles/Vol]14.2 mmol/LNormalThe [facility] HospitalComment on above:Performed By: #### BMP #### [facility] [address] [place] [address] Dr. Jason CristinaCalcium [Mass/Vol]8.6 mg/dLNormal8.5-10.1The [facility] Comment on above:Performed By: #### BMP #### [facility] [address] [place] [address] Dr. Jason CristinaChloride [Moles/Vol]100 mmol/DTetpto01-040Xuy [facility] Comment on above:Performed By: #### BMP #### [facility] [address] [place] [address] Dr. Jason CristinaCO2 [Moles/Vol]21.9 mmol/EQwapjj36.0-32.0The [facility] Comment on above:Performed By: #### BMP #### [facility] [address] [address] [address] Jason CristinaCreatinine [Mass/Vol]0.40 mg/dLCritically low0.55-1.02The [facility] HospitalComment on above:Performed By: #### BMP #### [facility] [address] [address] [address] Jason YuGFR-AF COOK ISLANDER>60Normal>=60The [facility] HospitalComment on above:Performed By: #### BMP #### [facility] [address] [address] [address] Jason YuGFR-NON AF COOK ISLANDER>60Normal>=60The [facility] HospitalComment on above:Performed By: #### BMP #### [facility] [address] [place] [address] Dr. Jason CristinaGlucose [Mass/Vol]107 mg/dLCritically bntd18-243Zbm [facility] HospitalComment on above:Performed By: #### BMP #### [facility] [address] [address] [address] Jason CristinaPotassium [Moles/Vol]3.1 mmol/LCritically low3.5-5.1The [facility] HospitalComment on above:Performed By: #### BMP #### [facility] [address] [place] [address] Dr. Jason CristinaSodium [Moles/Vol]133 mmol/LCritically arj387-694Spg [facility] HospitalComment on above:Performed By: #### BMP #### [facility] [address] [address] [address] Jason CristinaUrea nitrogen [Mass/Vol]9.0 mg/dLNormal7.0-18.0The [facility] HospitalComment on above:Performed By: #### BMP #### [facility] [address] [address] [address] Jason CristinaUrea nitrogen/Creatinine [Mass ratio]22.5 mg/mgNormalThe [facility] HospitalComment on above:Performed By: #### BMP #### [facility] [address] [address] [address] Jason Garcia PREG TVon 98-06-0564PT PREG TVEXAMINATION: US PREG TV HISTORY: Irregular periods COMPARISON: [...] Electronically authenticated by: JESE MENDEZ Date: 2022-08-08 16:36[facility] Vital Signs Date TimeVital SignValuePerforming CgzujvtutHnbubstf59-03-1148 15:18-0400Body mass index (BMI) [Ratio]31.93 kg/i7Bsqzb [employer] Work Phone: [phone] HospitalOvqgexvulm84-42-2288 15:18-0400Body bdijrk01.37 kgCore [employer] Work Phone: [phone] HospitalDypbigoden85-83-5067 15:18-0400Diastolic blood fzaeipiz71 mm[Hg][facility] [employer] Work Phone: [phone] HospitalDfphetehud39-92-9917 15:18-0400Systolic blood dbgrkzge852 mm[Hg]Patience [employer] Work Phone: [facility] HospitalTwsxwxufvy30-72-7728 16:01-0400Body mass index (BMI) [Ratio]32.27 kg/o4RnbcpSamaritan Hospital09-11-2025 16:01-0400Body weight 85.28 kgSamaritan Hospital09-11-2025 16:01-0400Diastolic blood pyapqtcg34 mm[Hg][facility]09-11-2025 16:01-0400Systolic blood obdghxby566 mm[Hg][facility] CenterXgqxfddvyt06-56-2464 12:38-0400Body .56 cmPHYSICIAN [facility]07-07-20[facility] 12:38-0400Body mass index (BMI) [Ratio]31.2 kg/t7CSJAXSQCO [facility] 12-22-2024 12:38-0400Body hwnwnlicyfd01.4 [degF]PHYSICIAN [facility]07-07-2025 12:38-0400Body .61 kgPHYSICIAN [facility]07-07-2025 12:38-0400Diastolic blood coajtubi08 mm[Hg]PHYSICIAN [facility]07-07-2025 12:38-0400Heart rate81 /minPHYSICIAN [facility] 12-22-2024 12:38-0400Respiratory rate14 /minPHYSICIAN [facility]07-07-2025 12:38-6182NdX9% (BldA) [Mass fraction]98 % PHYSICIAN [facility]07-07-2025 12:38-0400 Systolic blood qcyieslv462 mm[Hg]PHYSICIAN [facility]06-11-2025 14:09-0400Body mass index (BMI) [Ratio]31.03 kg/m2Kelsey LONG Work Phone: [facility] HospitalVfdhcjmrqg94-81-7218 14:09-0400Body hjgiaf51.01 kgKelsey LONG Work Phone: [facility] HospitalPvyjhexpgy48-43-1274 14:09-0400Diastolic blood phhcozln95 mm[Hg]Kelsey LONG Work Phone: [facility] HospitalHjgyekwnym04-42-5035 14:09-0400Systolic blood abvyjozt730 mm[Hg]Kelsey LONG Work Phone: [facility] HospitalCokoifuxin91-18-3840 09:42-0400Body jxuzej877.56 [facility]05-[facility]2025 09:42-0400Body mass index (BMI) [Ratio]30.7 kg/f9WxqkkiuqeTrihealth05-10-2025 09:42-0400Body lzbjtoazfze40.3 [degF][facility]05-10-2025 09:42-0400Body suqbri51.3 kgTri[facility]05-10-2025 09:42-0400Diastolic blood grhrbfep49 mm[Hg][facility]05-10-2025 09:42-0400 Heart xrob404 /[facility]05-10-2025 09:42-0400 Respiratory rate18 /[facility]05-10-2025 09:42-0400 SaO2% (BldA) [Mass fraction]98 %[facility]05-10-2025 09:42-0400Systolic blood fuennvpz855 mm[Hg][facility] 08-30-2023 09:41-0400Body ekjavf373.56 cmPHYSICIAN [facility]03-14-2024 09:41-0400Body mass index (BMI) [Ratio]31.7 kg/m2 PHYSICIAN [facility]03-14-2024 09:41-0400Body qdgnsrelhmd63.3 [degF]PHYSICIAN [facility] 08-30-2023 09:41-0400Body bcwbaq64.97 kgPHYSICIAN [facility]03-14-2024 09:41-0400Heart rate98 /minPHYSICIAN [facility]03-14-2024 09:41-0400Respiratory rate18 /minPHYSICIAN [facility]03-14-2024 09:41-4609XgD1% (BldA) [Mass fraction]98 %PHYSICIAN [facility]01-20-2024 10:00-0500Body qvlyre215.56 Geovanna Suárez Other [facility]01-20-2024 10:00-0500 Body mass index (BMI) [Ratio]32.34 kg/u6DfjlfdAnnetta Suárez Other [place] [employer] Other 01-20-2024 10:00-0500Body fsioldsibej34 [degF]Annetta Kamini Other [employer] Other 01-20-2024 10:00-0500Body qvsicv04.46 kgAnnetta Suárez Other [employer] Other 01-20-2024 10:00-0500Body nypbsk78.45 kgPHYSICIAN NO [facility]01-20-2024 10:00-0500Respiratory rate18 /minAnnetta Suárez Other [employer] Other 01-20-2024 10:00-7305ZiW3% (BldA) [Mass fraction]98 % Annetta Kamini Other [employer] Other 10-12-2023 17:05-0400Body ulhvlt862.56 cmAmbdannie Braden Other [employer] Other 10-12-2023 17:05-0400Body mass index (BMI) [Ratio] 31.58 kg/t5EhbgwMaggie Braden Other [employer] Other 10-12-2023 17:05-0400Body jcpdzhtbmea31.4 [degF]Maggie Braden Other [employer] Other 10-12-2023 17:05-0400Body jyifip00.46 kgMaggie Braden Other [employer] Other 10-12-2023 17:05-0400Diastolic blood bnwermpq44 mm[Hg] Maggie Braden Other [employer] Other 10-12-2023 17:05-0400Respiratory rate18 /minMaggie Braden Other [facility] [employer] Other 10-12-2023 17:05-3016OlL8% (BldA) [Mass fraction]98 % Maggie Braden Other [place] [employer] Other 10-12-2023 17:05-0400Systolic blood svnkeuwr675 mm[Hg] Maggie Braden Other [place] [employer] Other 06-01-2023 11:20-0400Body imkgib186.56 cmAmbdannie Braden Other [place] [employer] Other 06-01-2023 11:20-0400Body mass index (BMI) [Ratio] 32.09 kg/p3PwwotMaggie Braden Other [place] [employer] Other 06-01-2023 11:20-0400Body buroqzbdphi70.8 [degF]Maggie Braden Other [place] [employer] Other 06-01-2023 11:20-0400Body zlwjau36.82 kgMaggie Braden Other [place] [employer] Other 06-01-2023 11:20-0400Respiratory rate18 /minMaggie Braden Other [employer] Other 06-01-2023 11:20-2455PiW7% (BldA) [Mass fraction]99 % Maggie Braden Other [place] [employer] Other Encounters Encounter DateEncounter TypeCare ProviderFacilityStart: 10-15-2025 End: 78-54-0441yjodwbwkmaPHXHS FAZIONot AvailableStart: 04-01-2025 End: 54-20-1741Suxlyzoa flow sheetCorey Waylon DO Work Phone: [facility] Ornelasue OBGYNComment on above:Second trimester ([facility]); 13 weeks gestation of ([facility])Start: 04-01-2025 End: 58-75-0425Gaiaqw flowsheetCorey Waylon DO Work Phone: [facility] WillettBud OBGYNStart: 04-01-2025 End: 03-82-4688Rlcbnx flowsheetCorey Waylon DO Work Phone: [facility]nelasue OBGYNStart: 02-26-2025 End: 34-05-4596Iwtews outpatient visit 5 minutesFazio Nurse [facility] Bcp ObNO Maxwell OBGYNComment on above:GA: 9z3dSnduc: 02-26-2025 End: 72-31-7850qsyrxfhtzyYTE RAMEYNot AvailableStart: 02-11-2025 End: 98-37-4666Akwalowdm Result EncounterCorey Waylon DO Work Phone: noms External Department UnsolicitedStart: 02-11-2025 End: 52-88-9761Iutamrieo Result EncounterCorey Waylon DO Work Phone: n[facility] External Department UnsolicitedStart: 02-06-2025 End: 49-29-9884Xvnsxixad Result EncounterCorey Waylon DO Work Phone: noms External Department UnsolicitedStart: 02-06-2025 End: 13-84-6081Bpajakbhd Result EncounterCorey Waylon DO Work Phone: noms External Department UnsolicitedStart: 02-04-2025 End: 60-99-9899Pvmbhnrvc Result EncounterCorey Waylon DO Work Phone: noms External Department UnsolicitedStart: 02-04-2025 End: 15-99-7742Ysabshlux Result EncounterCorey Waylon DO Work Phone: noms External Department UnsolicitedStart: 02-02-2025 End: 48-44-3173Ikezayzbj Result EncounterCorey Waylon DO Work Phone: noms External Department UnsolicitedStart: 02-02-2025 End: 83-11-8890Nowqssexa Result EncounterCorey Waylon DO Work Phone: n[facility] External Department UnsolicitedStart: 12-22-2024 End: 01-58-9601rekwmzxulmFZWCXQWIL NO [facility] Work Phone: Start: 12-22-2024 End: 23-21-4798Gynsjae encounter procedureMirta Harris PULP [facility] P[facility] TE[facility] Jay Work Phone: Start: 11-26-2024 End: 90-60-3841Lmkdxw flowsheetKelsey LONG Work Phone: [facility] BCP OBStart: 11-26-2024 End: 96-29-8419Bltykn flowsheetKelsey LONG Work Phone: [facility] BCP OBStart: 11-26-2024 End: 69-52-1143Itvqjtqdr Result EncounterKelsey LONG Work Phone: noms External Department UnsolicitedStart: 11-26-2024 End: 07-66-4568Qdhsgmh encounter procedureKelsey LONG Work Phone: [facility] Work Phone: Start: 11-26-2024 End: 50-29-4861Zdncsarx preventive med est patient 18-39 yrsKelsey LOGN Work Phone: [facility] BCP OBComment on above:Well woman exam with routine gynecological examStart: 11-26-2024 End: 39-87-1333fgonmppmcvEKN Gurjit AvailableStart: 11-05-2024 End: 44-81-2602Fkzspfnkg Result EncounterCorey Waylon DO Work Phone: n[facility] External Department UnsolicitedStart: 11-05-2024 End: 96-00-0015Omipofdpw Result EncounterCorey Waylon DO Work Phone: [facility] External Department UnsolicitedStart: 10-27-2024 End: 02-14-2913Vxyyhotvw Result EncounterCorey Waylon DO Work Phone: n[facility] External Department UnsolicitedStart: 10-27-2024 End: 40-84-8828Dopazuilp Result EncounterCorey Waylon DO Work Phone: n[facility] External Department UnsolicitedStart: 10-25-2024 End: 99-05-5211trfoteeyhxMgrjgrpgaChillicothe Hospital Work Phone: Start: 10-25-2024 End: 47-78-1116Qpyulfr [facility]Our [facility] Jay Jay Work Phone: Start: 08-30-2023 End: 61-75-8691vubjfezypbHKPDPXWXC NO [facility] Work Phone: Start: 08-30-2023 End: 89-06-8713Yqzntqq encounter procedurePHYSICIAN NO [facility] Ur[facility] Jay Jay Work Phone: Start: 07-12-2023 End: 97-12-4605urrgwugmrpYKAZOANOV NO [facility] Work Phone: Start: 07-12-2023 End: 43-86-6933Twueobus ReferredPHYSICIAN NO [facility]-LAB Path Spec [facility] HospStart: 07-07-2023 End: 10-39-6179lfglvokkzkRfdcqn Dymond Other [facility] [employer] Other Start: 28-98-0043Jlcass outpatient visit 15 minutes Annetta Vences [facility] ClydeStart: 07-07-2023 End: 69-13-8056Emsfdgj encounter procedurePHYSICIAN NO [facility]-Start: 03-29-2023 End: 02-52-5926vthwijcsgrXopgj Keller Other [facility] [employer] Other Start: 02-93-5660Qcsfsu outpatient visit 15 minutes Maggie DouglerFPG [facility]gent Care ClydeStart: 11-17-4673Adjznj outpatient visit 15 minutesAmber DouglerFPG Urgent Care ClydeStart: 11-16-2022 End: 13-74-8310wrwdzfdeevWyctwh M BaileyGreenville Junction [employer] Other Start: 11-16-2022 End: 09-21-4212Ozsbiyyv ReferredAPRN Annel Lynn Work Phone: [facility] [place] Work Phone: Start: 10-24-2022 End: 01-99-4940udoygolbrkVIT RAMEY .Facility:Q7Wwetz: 10-03-2022 End: 52-80-8564gcysrdqxiaLCX RAMEY .Facility:M2Mgosr: 09-10-2022 End: 07-19-0065scrioouiybCKVRMK RODRIGUEZ .Facility:A4Dhxuv: 08-07-2022 End: 45-75-0022hrevzgvdmfEE PATIENCE CONNORS .Facility:U2Rkryx: 07-01-2020 End: 56-95-9165Ovkegnrwo for gynecological examination (general) (routine) without abnormal findingsMaggie Braden Other [facility] [employer] Other Start: 07-01-2020 End: 54-68-1503Gzgwbypdabunk examination normalPamela Kamini Other [facility] [employer] Other Procedures DateProcedureProcedure DetailPerforming ClinicianStart: 58-66-9567Tsqad dip stick/tablet rgnt non-auto w/o micrscpCorey Waylon DO Work Phone: Start: 41-45-2283Yfeux dip stick/tablet rgnt non-auto w/o micrscpCorey Waylon DO Work Phone: Start: 97-41-1951BPA PREG QUANT HCGCorey Waylon DO Work Phone: Start: 00-23-8755ILJ PREG QUANT HCGCorey Waylon DO Work Phone: Start: 84-62-6630QJL PREG QUANT HCGCorey Waylon DO Work Phone: Start: 20-80-8068FMJ PREG QUANT HCGCorey Waylon DO Work Phone: Start: 89-37-0790Ozmtg Strep (POC)PHYSICIAN NO FAMILY Start: 07-08-3927UFQ,APTIMA HPV,AGE GDLNAmy Virgil PA Work Phone: Start: 56-58-0966QLL PREG QUANT HCGCorey Waylon DO Work Phone: Start: 59-10-0965QYN PREG QUANT HCGCorey Waylon DO Work Phone: Start: 79-85-3669Lbgiv Strep (POC)Start: 05-16-2018 End: 34-89-0745Vptlept examination of Macy Suárez Other End: 97-64-4503Dwxibtjlcqxhu care educationMaggie Braden Other School admission medical examinationMaggie Braden Other Plan of Treatment DateCare ActivityDetailAuthorStart: 04-01-2025 End: 00-33-5897Mhislfv encounter xgvszenel38/15/2025 2:50 PM EDT Routine [facility] [facility] [address] [id number] Patience Connors, DO [address] [place] [address] [facility] Bud OBGYNStart: 02-26-2025 End: 03-44-3517gfuqcyhpxi87/11/2025 2:30 PM EDT Initial [facility] [address] [place], [id number] [facility] Bud OBGYNStart: 02-26-2025 End: 75-67-5489MAL/RhABO/Rh Lab Routine Missed menses , unspecified gestational age ([facility]) Expected: 02/26/2025 (Approximate), Expires: 02/26/2026[facility] HealthcareComment on above:Expected: 02/26/2025 (Approximate), Expires: 02/26/2026Start: 02-26-2025 End: 67-85-7090Wjure type and Indirect antibody screen panel - BloodType and screen Lab Routine Missed menses , unspecified gestational age ([facility]) Expected: 02/26/2025 (Approximate), Expires: 02/26/2026[facility] Work Phone: comment on above:Expected: 02/26/2025 (Approximate), Expires: 02/26/2026Start: 02-26-2025 End: 67-22-5654Lqupf of abuse panel - Urine by Screen methodRapid drug screen, urine Lab Routine , unspecified gestational age ([facility]) Encounter for supervision of normal first in first trimester ([facility]) Expected: 02/26/2025 (Approximate), Expires: 02/26/2026[facility] HealthcareComment on above: Expected: 02/26/2025 (Approximate), Expires: 02/26/2026Start: 02-26-2025 End: 86-92-1473Xuepbkkqexrj / ancillary services fehnyktvgb20/11/2025 2:00 PM EDT [place] [phone] [facility] OBGYNStart: 11-26-2024 End: 48-39-8352Vwaymqo encounter procedureNOMS [facility] OBComment on above:Arrived Start: 11-13-2024 End: 44-31-6041nuoawtjack18/29/2025 2:00 PM EDT Initial [facility] [address] [place] [address] GQBQ [facility] OBStart: 11-13-2024 End: 27-84-1891Iyyjiyvekwvh / ancillary services awukicdcuc84/29/2025 1:30 PM EDT Ancillary Procedure [facility] [address] [place] [address] ONLM [facility] OBStart: 01-35-4172Tekwzsti identified in Urine by CultureUrine CultureTrihealthBacteria identified in Urine by CultureUrine culture Microbiology Routine Missed menses Ordered: 02/26/2025[facility] HealthcareComment on above:Ordered: 02/26/2025BC W Auto Differential panel - BloodCBC and differential Lab Routine Missed menses , unspecified gestational age ([facility]) Ordered: 02/26/2025[facility] HealthcareComment on above:Ordered: 02/26/2025ytology Cervical or vaginal smear or scraping studyPap Smear Pathology and Cytology Routine Well woman exam with routine gynecological exam Ordered: 11/26/2024[facility] Work Phone: comment on above:Ordered: 11/26/2024Hemoglobin A1c/Hemoglobin.total in BloodHemoglobin A1c Lab Routine Missed menses , unspecified gestational age ([facility]) Ordered: 02/26/2025[facility] HealthcareComment on above:Ordered: 02/26/2025Hepatitis B virus surface Ag [Presence] in Serum or Plasma by ImmunoassayHepatitis B surface antigen Lab Routine Missed menses , unspecified gestational age ([facility]) Ordered: 02/26/2025[facility] HealthcareComment on above:Ordered: 02/26/2025Hepatitis C virus Ab [Presence] in Serum or Plasma by ImmunoassayHepatitis C antibody Lab Routine Missed menses , unspecified gestational age ([facility]) Ordered: 02/26/2025[facility] HealthcareComment on above:Ordered: 02/26/2025HIV-1/HIV-2 antigen/antibody combination immunoassayHIV-1 and HIV-2 antibodies Lab Routine Missed menses , unspecified gestational age ([facility]) Ordered: 02/26/2025[facility] HealthcareComment on above:Ordered: 02/26/2025Reagin Ab [Presence] in Serum by RPRRPR Lab Routine Missed menses , unspecified gestational age ([facility]) Ordered: 02/26/2025[facility] HealthcareComment on above:Ordered: 02/26/2025 Rubella antibody, IgGRubella antibody, IgG Lab Routine Missed menses , unspecified gestational age ([facility]) Ordered: 02/26/2025[facility] HealthcareComment on above:Ordered: 02/26/2025[facility] Immunizations Immunization DateImmunizationNotesCare BjchhrqtGtfvfgym39-44-4644vjdaeft and diphtheria toxoids, adsorbed, preservative free, for adult use (5 Lf of tetanus toxoid and 2 Lf of diphtheria toxoid)Maggie Braden Other [facility] Payers DatePayer CategoryPayerPolicy [id number] [facility] [place] MEDICAID [place] Member Subscriber Plan / Payer (Effective 2024-Present)Name: Danelle Bermudez Relation to Subscriber: Self Name: Danelle Bermudez Payer ID: Not on file Type: Not on file Address: [place] [id number] Managed Care HMO (unspecified)[facility] Address: [facility] [address] [place] [id number] [id number] 2.16.840.1.665763.3.57[id number] 2.16.840.1.386278.3.57[id number] 2.16.840.1.894895.3.57[id number] 2.16.840.1.619599.3.57[id number] 2.16.840.1.8[id number] 2.16.840.1.339385.3.57[id number] 2.16.840.1.764641.3.579.2.1259 [id number] 1960Private Health [id number] [id number] 2.16840.1.488613.3.579.2.531 Social History DateTypeDetailFacilityUnknown if ever smokedSilver Push Other Start: 08-08-2023 End: 92-85-2599Xpi [facility] At [facility]No[facility] Other Start: 28-03-1769Pix Assigned At BirthFeWyandot Memorial Hospitaltart: 12-21-2022 End: 20-70-8414Eiivnwv smoking status NHISNever smoked tobacco (finding) [facility]: 43-18-3722Gykeikv use and exposure Smokeless tobacco non-userNOMS HealthcareStart: 10-22-2023 End: 26-08-6275Aixdtbuym beverage intakeLifetime non-drinker (finding)[facility] HealthcareStart: 08-08-2023 End: 56-61-0130Rxqypow of Social functionNOMS HealthcareStart: 75-22-3121Dyc assigned at birthNot on fileCASTLEVIEW HOSPITAL HealthcareStart: 35-17-8870vdwlpcdmRebgmtlfnParkwood Hospitaltart: 39-70-9457OswTdfbdm (finding)[facility] Hospitaltart: 75-55-6402BvfXqwwhuURDL Healthcare Clinical Notes 11-16-2022 to 04-01-2025 Note Date & DpywArafMfvmdavk33-16-9915 History of Present illness Narrative* Vania Yoana, NEWSPAPER COPY EDITOR - 04/01/2025 2:50 PM EDT Reason for Appointment: Patient ID: Danelle Bermudez is a 24 y.o. female who presents for Routine Visit Patient presents today for Return OB appointment. MEDICATIONS Current Outpatient Medications Medication Instructions MV-Min-Fe Fum-FA-DHA ( 1 PO) Take by mouth ALLERGIES Allergies[1] PROBLEMS Active Ambulatory Problems Diagnosis Date Noted Folliculitis 11/22/2022 Migraine with status migrainosus, not intractable 11/22/2022 Missed period 11/22/2022 Tachycardia 11/22/2022 History of enlargement of pituitary gland 12/03/2014 Resolved Ambulatory Problems Diagnosis Date Noted No Resolved Ambulatory Problems Past Medical History: Diagnosis Date BMI 30.0-30.9,adult Encounter for Nexplanon removal HISTORY PAST MEDICAL HISTORY SOCIAL HISTORY Medical History[2] Social History Tobacco Use Smoking status: Never Smokeless tobacco: Never Substance Use Topics Alcohol use: Never Drug use: Never FAMILY HISTORY Family History[3] SURGICAL HISTORY Surgical History[4] REVIEW OF SYSTEMS Review of Systems: Review of Systems Constitutional: Negative. HENT: Negative. Eyes: Negative. Respiratory: Negative. Cardiovascular: Negative. Gastrointestinal: Negative. Genitourinary: Negative. Musculoskeletal: Negative. Skin: Negative. Neurological: Negative. All other systems reviewed and are negative. Hematological: Negative. Endocrine: Negative. Allergic/Immunologic: Negative. OBJECTIVE Objective: Physical Exam Constitutional: Appearance: Normal appearance. She is well-developed. Cardiovascular: Rate and Rhythm: Normal rate and regular rhythm. Pulmonary: Effort: Pulmonary effort is normal. Breath sounds: Normal breath sounds. Abdominal: General: Bowel sounds are normal. There is no distension. Palpations: Abdomen is soft. Tenderness: There is no abdominal tenderness. There is no guarding or rebound. Musculoskeletal: General: No swelling. Normal range of motion. Right lower leg: No edema. Left lower leg: No edema. Neurological: Mental Status: She is alert and oriented to person, place, and time. Skin: General: Skin is warm and dry. Psychiatric: Mood and Affect: Mood normal. Behavior: Behavior normal. Vitals and nursing note reviewed. Exam conducted with a mold yard crane operator present. Vitals: Estimated body mass index is 31.93 kg/m as calculated from the following: Height as of 10/31/22: 5' 4 . Weight as of this encounter: 186 lb. BP: 122/70 Patient's last menstrual period was 12/28/2024 (exact date). ASSESSMENT & PLAN ICD-10-CM 1. Second trimester ([facility]) Z34.92 POCT urinalysis dipstick manually resulted 2. 13 weeks gestation of ([facility]) Z3A.13 New OB: Patient presents today for 1st time obstetrics appointment with provider. Patient is currently 13w3d . Patients history has been reviewed in great detail including any potential risks. Patient stated she currently has no complaints. Expectations throughout regarding labs, ultrasounds, and appointments have been discussed with the patient in detail. It was reiterated that the patient is to drink 6-8 glasses of water a day, eat 6 small meals a day, do not consume raw or undercooked meat, and stay away [facility]. Patient has been consulted regarding any further do's and don'tsof . Patient voiced understanding and all questions and concerns were answered. Orders Placed This Encounter Procedures POCT urinalysis dipstick manually resulted Follow Up: Patient is to return in 4 weeks for routine OB appointment. Documented by Vania Lees LPN on behalf of: Patience Connors DO [1] No Known Allergies [2] Past Medical History: Diagnosis Date BMI 30.0-30.9,adult Encounter for Nexplanon removal Folliculitis Tachycardia [3] Family History Problem Relation Name Age of Onset Arthritis Father Breast cancer Other Great Grandmother [4] Past Surgical History: Procedure Laterality Date PAP SMEAR 10/03/2022 documented in this encounterSaint Luke's HospitalFvzemrzuig31-37-4089 History of Present illness Narrative* Frances Espinosa MA - 02/26/2025 2:30 PM EDT Reason for Appointment: Patient ID: Danelle Bermudez is a 24 y.o. female who presents for Amenorrhea Patient presents today for a Nurse OB Intake appointment. Patient is 8w4d with a Estimated Date of Delivery: 10/04/25 OB History Para Term AB Living 2 1 SAB IAB Ectopic Multiple Live Births # Outcome Date GA Lbr Mirza/2nd Weight Sex Type Anes PTL Lv 2 Current 1 Current Medications: has a current medication list which includes the following prescription(s): mv-min-fe fum-fa-dha and ondansetron odt. Medical History: Active Ambulatory Problems Diagnosis Date Noted Folliculitis 11/22/2022 Migraine with status migrainosus, not intractable 11/22/2022 Missed period 11/22/2022 Tachycardia 11/22/2022 History of enlargement of pituitary gland 12/03/2014 Resolved Ambulatory Problems Diagnosis Date Noted No Resolved Ambulatory Problems Past Medical History: Diagnosis Date BMI 30.0-30.9,adult Encounter for Nexplanon removal Family History Problem Relation Name Age of Onset Arthritis Father Breast cancer Other Great Grandmother Social History Tobacco Use Smoking status: Never Smokeless tobacco: Never Substance Use Topics Alcohol use: Never Drug use: Never Past Surgical History: Procedure Laterality Date PAP SMEAR 10/03/2022 No Known Allergies Vitals: Estimated body mass index is 32.27 kg/m as calculated from the following: Height as of 5/16/23: 5' 4 . Weight as of this encounter: 188 lb. BP: 116/82 Patient's last menstrual period was 12/28/2024 (exact date). Assessment/Plan Diagnoses and all orders for this visit: Missed menses - US OB transvaginal; Future - Type and screen; Future - ABO/Rh; Future - CBC and differential - Hemoglobin A1c - RPR - Rubella antibody, IgG - Hepatitis B surface antigen - Hepatitis C antibody - HIV-1 and HIV-2 antibodies - Urine culture - POCT , urine manually resulted - POCT urinalysis dipstick manually resulted Positive urine test ([facility]) - US OB transvaginal; Future , unspecified gestational age ([facility]) - Type and screen; Future - ABO/Rh; Future - CBC and differential - Hemoglobin A1c - RPR - Rubella antibody, IgG - Hepatitis B surface antigen - Hepatitis C antibody - HIV-1 and HIV-2 antibodies - Rapid drug screen, urine; Future Encounter for supervision of normal first in first trimester ([facility]) - Rapid drug screen, urine; Future Nurse Note: OB Intake: Patient presents today for first OB visit. Patients history has been reviewed in great detail including any potential risks. Patient signed consent forms and patient desires testing in both trimesters. Patient currently has no complaints and has been advised to drink 6-8 glasses of water a day, eatno raw or undercooked meat, and stay away [facility]. Patient has also been advised to not change litter boxes and eat 6 small meals a day. Patient has been consulted regarding the do's and don'ts ofpregnancy. Patient was given labs and all questions and concerns were answered. Follow Up: Patient is to have labs drawn at directed and return to office for initial OB appointment with provider. Patient may call office as needed with any concerns or questions. Nurse Visit Completed by: Frances Espinosa MA documented in this encounterSaint Luke's HospitalCsgawjgack36-12-1208 History of Present illness Narrative* MERCEDES Garcia - 11/26/2024 2:00 PM EDT Reason for Appointment: Patient ID: Danelle Bermudez is a 23 y.o. female who presents for Well Women Visit Patient presents today for Annual Exam. MEDICATIONS No current outpatient medications ALLERGIES No Known Allergies PROBLEMS Active Ambulatory Problems Diagnosis Date Noted Folliculitis 11/22/2022 Migraine with status migrainosus, not intractable ([facility]) 11/22/2022 Missed period 11/22/2022 Tachycardia 11/22/2022 History [...] nursing note reviewed. Exam conducted with a mold yard crane operator present. Vitals: Estimated body mass index is [...] behalf of: MERCEDES Garcia documented in this encounterSaint Luke's HospitalBmutdehgsx78-55-4741 Evaluation note* Encounter Date Diagnosis Assessment Notes Treatment Notes Treatment Clinical Notes Jun, Acute mastitis of left breast (I CD-10 - N61.0) Drink plenty fluids, get plenty of rest. Take cephalexin as prescribed until gone. Continue to breast-feed as usual. Take Tylenol as needed for pain or fever. Follow-up with your family physician if no improvement in 2 to 3 days. [facility] Other 10-12-2023 Evaluation note* Encounter Date Diagnosis Assessment Notes Treatment Notes Treatment Clinical Notes Mar, Mastitis (ICD-10 - N61.0) Diagnosis [...] continue breast-feeding. Follow up with PCP or WINDOWS AND DOORS INSTALLER if symptoms do not improve. Immediate evaluation in ER for signs/symptoms as discussed. Patient verbalizes understanding and is agreeable with treatment plan Mar,OtherMastitis home care material was printed [employer] Other 09-26-2023 History general Narrative - Reported* Type Description Date Medical History Acne Surgical HistoryNo know Surgical historyHospitalization Historyvaginal 03/13/2023 [facility] Other 06-01-2023 Evaluation note* Encounter Date Diagnosis Assessment Notes Treatment Notes Treatment Clinical Notes Nov, Dysuria (ICD-10 - R30.0) Nov,cute lower UTI (ICD-10 - N39.0)UA with small leukocytes, trace blood. Will treat with Keflex. Finish entire course. Push fluids. Will send for urine culture and notify of results in 2 to 4 days. Follow-up with PCP for recheck in the next 3 to 5 days if symptoms are continuing or worsening. Patient verbalized understanding of treatment plan. [facility] Other Evaluation noteNo assessment information available [facility] Work Phone: Evaluation note* Diagnosis Well woman exam with routine gynecological exam Routine gynecological examination documented in this encounter [facility] HealthcareEvaluation note* Diagnosis Missed menses Positive urine test ([facility]) Missed menses Positive urine test ([facility]) , unspecified gestational age ([facility]) Encounter for supervision of normal first in first trimester ([facility]) documented in this encounter [facility] HealthcareEvaluation note* Diagnosis Second trimester ([facility]) state, incidental 13 weeks gestation of ([facility]) documented in this encounter [facility] HealthcareHistory general Narrative - Reported* Type Description Date Medical History Acne [facility] Other History general Narrative - Reported* Type Description Date Medical History Acne Surgical HistoryNo Surgical history information [facility] Other Reason for referral (narrative)No reason for referral information availableAultman Hospital Work Phone: Summary Purpose Family History No Family History [...] sore throat, swollen glands October 25 9:19am Sore throat, headache December 22, 2024 12: 28pm Chief Complaint Admit Date sore throat, swollen glands October 25 9:19am Chief Complaint Poss Mastitis L92.9 cough, runny nose, congestion Additional Source Comments INFORMATION SOURCE (unrecogn ized section and content) DATE CREATED AUTHOR 10/29/2022 [facility] DATE CREATED AUTHOR AUTHOR'S ORGANIZ ATION 08/07/2023 [facility] DATE CREATED AUTHOR AUTHOR'S ORGANIZ ATION 04/03/2025 [facility] EPIC REASON FOR VISIT (unrecogniz ed section and content) ReasonCommentsWell Women VisitReasonCommentsAmenorrheaReasonCommentsRoutine Visit Care Teams (unrecognized sec tion and content) Team Status: Inactive Member Role Status Dates Annel Bailey APRN Attending Provider Active Team Status: Active Member Role Status Dates PHYSICIAN NO FAMILY Primary Care Provider Active Team Status: Inactive Member Role Status Dates PHYSICIAN NO FAMILY Primary Care Provider Active Start: July 12, 2023 End: July 12ore FazioAttending ProviderActiveStart: July 12, 2023 End: July 12, 2023 Team Status: Inactive Member Role Status Dates EARL Falcon Attending Provider Active S tart: July 07, 2023 End: July 07, 2023 Team Status: Inactive Member Role Status Dates PHYSICIAN NO FAMILY Primary Care Provider Active Start: August 30, 2023 End: August 29Kelly Piper ProviderActiveStart: August 30, 2023 End: August 30, 2023Team MemberRelationshipSpecialtyStart DateEnd Date Shaikh Rizzo MD [address] [place] [address] PCP - GeneralInternal Medicine07/11/23 Team Status: Inactive Member Role Status Dates PHYSICIAN NO FAMILY Primary Care Provider Active Start: October 25, 2024 End: October 25Kelly Piper ProviderActiveStart: October 25, 2024 End: October 25, 2024Team MemberRelationshipSpecialtyStart DateEnd Date Shaikh Rizzo MD [address] [place] [phone] PCP - GeneralInternal Medicine07/11/23Team MemberRelationshipSpecialtyStart Date End Date Shaikh Rizzo MD [address] [place] [phone] PCP - GeneralInternal Medicine07/11/23Team MemberRelationshipSpecialtyStart Date End Date Shaikh Rizzo MD [address] [place] [phone] PCP - GeneralInternal Medicine07/11/23 Team Status: Inactive Member Role Status Dates PHYSICIAN NO FAMILY Primary Care Provider Active Start: December 22, 2024 End: December 22, 2024Kelly Olmedo ProviderActiveStart: December 22, 2024 End: December 22, 2024Team MemberRelationshipSpecialtyStart DateEnd Date Shaikh Rizzo MD [address] [place] [phone] PCP - GeneralInternal Medicine07/11/23Team MemberRelationshipSpecialtyStart Date End Date Shaikh Rizzo MD PCP - GeneralInternal Medicine07/11/23Team MemberRelationshipSpecialtyStart Date End Date Shaikh Rizzo MD PCP - GeneralInternal Medicine07/11/23 Goals (unrecognized section and content) Goals may [...] BE BASED ON THE PRIMARY CLINICAL RECORDS. [employer] [facility]. provides no warranty or guarantee of the accuracy or completeness of information in this document.
[2025-04-29 15:29] LABS: Hematocrit 34.2 % (36.0-48.0); Hemoglobin 12.0 g/dL (12.0-16.0); Immature Granulocytes Abs Auto 0.04 10^3/uL (0.00-0.03); Immature Granulocytes Pct Auto 0.3 % (0.0-0.5); Lymphocytes Absolute Auto 2.8 10^3/uL (1.2-3.8); Mean Corpuscular HGB Conc 35.1 g/dL (29.9-35.2); Mean Corpuscular Hemoglobin 31.6 pg (26.7-34.0); Mean Corpuscular Volume 90.0 fL (81.0-99.0); Platelet Count 251 10^3/uL (150-450); Red Blood Count 3.80 10^6/uL (4.20-5.40); White Blood Count 12.1 10^3/uL (4.0-11.0)
[2025-04-29 16:48] LABS: Cannabinoid Screen Urine NEGATIVE (NEGATIVE); Methamphetamines Screen Urine NEGATIVE (NEGATIVE); Tricyclic Antidepressant Urine NEGATIVE (NEGATIVE)
[2025-04-30 08:09] LABS: Rubella Antibodies, IgG 2.71 index (Immune >0.99)
[2025-04-30 12:09] LABS: Rapid Plasma Reagin, Quant Non Reactive titer (NonRea<1:1)
== END 2025-04-29 14:56 | disposition home or self-care (01) ==
PROVIDERS: Visit Provider Physician Assistant
DX: Z34.92 Encounter for supervision of normal pregnancy, unspecified, second trimester (principal); N92.6 Irregular menstruation, unspecified
CPT/HCPCS: 36415; 80307; 82105; 83036; 85025; 86592; 86762; 86803; 86850; 86900; 86901; 87086; 87340; 87389

== ENCOUNTER 2025-05-27 16:39 | Outpatient (OUT) | payer OTHER, MEDICAID, SELFPAY ==
--- NOTE | 2025-05-27 16:47 | US_ITS ---
The [address] [address] Patient Name: CHRIS BERMUDEZ MRN: [id number] date: 2000 Sex: F Assigned Patient Location: Current Patient Location: Accession/Order Number: [id number] Exam Date: 05/27/2025 16:55 Report Date: 05/28/2025 09:47 At the request of: RAJINDER HERMAN Procedure: US OB anatomy CLINICAL DATA: Anatomy screening ULTRASOUND OB ANATOMY COMPARISON: None There is a single live intrauterine gestation in transverse presentation with head to maternal right. The developing placenta is anterior. The amniotic fluid volume is subjectively normal. There is cardiac and somatic activity with heart rate of 136 beats per minutes. The neural axis and all 4 extremities were surveyed by the cage loader and no abnormalities were identified. Facial features, four-chamber heart with right and left ventricular outflow tracts, diaphragm, stomach, kidneys, three-vessel cord with insertion, bladder and male gender are seen. The following measurements were obtained: Biparietal diameter 5.1 cm 21 weeks 2 days 42% Head circumference 19.1 cm 21 weeks 2 days 35% Abdominal circumference 16.9 cm 21 weeks 6 days 58% Femur length 5.6 cm 21 weeks 2 days 37% The composite ultrasound age based on these measurements is 21 weeks 3 days +/- 1 week 4 days. The estimated date of delivery of 10/04/2025 correlates with dates based on last menstrual period. The estimated weight is 15 ounces +/- 2 ounces (53%). US/US OB anatomy IMPRESSION: SINGLE LIVE INTRAUTERINE GESTATION WITH ULTRASOUND AGE OF 21 WEEKS 3 DAYS. UNREMARKABLE ANATOMY SURVEY. ULTRASOUND CERVICAL LENGTH COMPARISON: None The cervix was evaluated using a transvaginal probe. The end of the placenta is approximately 4.4 cm from the internal cervical os. The cervix is closed with estimated length of 4.4 cm. IMPRESSION: NORMAL CLOSED CERVIX. Impression dictated by: Vania Alejandro M.D. 05/28/2025 9:47 AM Dictation Location: [facility]umpTop Electronically authenticated by: [id number] Y Date: 05/28/2025 09:47
--- NOTE | 2025-05-27 16:48 | US_ITS ---
The [address] [address] Patient Name: CHRIS BERMUDEZ MRN: [id number] date: 2000 Sex: F Assigned Patient Location: Current Patient Location: Accession/Order Number: [id number] Exam Date: 05/27/2025 16:55 Report Date: 05/28/2025 09:47 At the request of: RAJINDER HERMAN Procedure: US OB anatomy CLINICAL DATA: Anatomy screening ULTRASOUND OB ANATOMY COMPARISON: None There is a single live intrauterine gestation in transverse presentation with head to maternal right. The developing placenta is anterior. The amniotic fluid volume is subjectively normal. There is cardiac and somatic activity with heart rate of 136 beats per minutes. The neural axis and all 4 extremities were surveyed by the dividend deposit entry clerk and no abnormalities were identified. Facial features, four-chamber heart with right and left ventricular outflow tracts, diaphragm, stomach, kidneys, three-vessel cord with insertion, bladder and male gender are seen. The following measurements were obtained: Biparietal diameter 5.1 cm 21 weeks 2 days 42% Head circumference 19.1 cm 21 weeks 2 days 35% Abdominal circumference 16.9 cm 21 weeks 6 days 58% Femur length 5.6 cm 21 weeks 2 days 37% The composite ultrasound age based on these measurements is 21 weeks 3 days +/- 1 week 4 days. The estimated date of delivery of 10/04/2025 correlates with dates based on last menstrual period. The estimated weight is 15 ounces +/- 2 ounces (53%). US/US OB cervical length IMPRESSION: SINGLE LIVE INTRAUTERINE GESTATION WITH ULTRASOUND AGE OF 21 WEEKS 3 DAYS. UNREMARKABLE ANATOMY SURVEY. ULTRASOUND CERVICAL LENGTH COMPARISON: None The cervix was evaluated using a transvaginal probe. The end of the placenta is approximately 4.4 cm from the internal cervical os. The cervix is closed with estimated length of 4.4 cm. IMPRESSION: NORMAL CLOSED CERVIX. Impression dictated by: Vania Alejandro M.D. 05/28/2025 9:47 AM Dictation [facility] Electron[facility] authenticated by: [id number] Y Date: 05/28/2025 09:47
== END 2025-05-27 16:40 | disposition home or self-care (01) ==
LOC: US 16:39
PROVIDERS: Visit Provider Physician Assistant
DX: Z36.89 Encounter for other specified antenatal screening (principal)
CPT/HCPCS: 76805; 76817